=== PATIENT | male | born 1930 | race Caucasian/White ===

== ENCOUNTER 2018-10-04 19:28 | Emergency (ER) | payer MEDICARE ==
[~2018-10-04] VITALS: Ht 170.2 cm; Wt 61.2 kg
--- OUTSIDE RECORDS SUMMARY | 2018-10-04 19:32 | XMS REPORT | Continuity of Care Document ---
Author Author [facility] Organization [facility] Address Unknown Phone Unavailable Allergies There is no data. Medications There is no data. Problems There is no data. Procedures There is no data. Results There is no data. Encounters ACCT No. Visit Date/Time Discharge Status Pt. Type Provider Facility Loc./Unit Complaint [id number] 09/23/2018 08:59:30 09/23/2018 23:59:59 CLS Preadmit SHONDA MOTA [facility] JUMA RAD PROSTATE CA
[2018-10-04 19:46] LABS: BASOPHILS % (AUTO) 0 % (0-10); EOSINOPHILS # (AUTO) 0.2 10^3/uL (0.0-0.3); EOSINOPHILS % (AUTO) 3 % (0-10); HEMATOCRIT 35 % (40-54); HEMOGLOBIN 11.6 G/DL (13.3-17.7); LYMPHOCYTES # (AUTO) 1.4 X 10^3 (1.0-4.0); LYMPHOCYTES % (AUTO) 23 % (12-44); MEAN CORPUSCULAR HEMOGLOBIN 33 PG (25-34); MEAN CORPUSCULAR HGB CONC 33 G/DL (32-36); MEAN CORPUSCULAR VOLUME 100 FL (80-99); MEAN PLATELET VOLUME 8.7 FL (7.4-10.4); MONOCYTES # (AUTO) 0.8 X 10^3 (0.0-1.0); MONOCYTES % (AUTO) 13 % (0-12); NEUTROPHILS # (AUTO) 3.7 X 10^3 (1.8-7.8); NEUTROPHILS % (AUTO) 61 % (42-75); PLATELET COUNT 182 10^3/uL (130-400); RED CELL DISTRIBUTION WIDTH 13.5 % (10.0-14.5); WHITE BLOOD COUNT 6.1 10^3/uL (4.3-11.0)
--- NOTE | 2018-10-04 19:47 | NUR ---
PT TO CT DEPT, NO S/S OF DISTRESS NOTED. PT [id number]
[2018-10-04 19:58] LABS: INR 0.9 (0.8-1.4)
[2018-10-04 20:04] LABS: ALANINE AMINOTRANSFERASE < 6 U/L (0-55); ALBUMIN 4.3 GM/DL (3.2-4.5); ALKALINE PHOSPHATASE 89 U/L (40-136); BILIRUBIN,TOTAL 0.5 MG/DL (0.1-1.0); BUN/CREATININE RATIO 18; CALCIUM 9.5 MG/DL (8.5-10.1); CARBON DIOXIDE 25 MMOL/L (21-32); CHLORIDE 104 MMOL/L (98-107); CREATINE KINASE 58 U/L (30-200); CREATININE SERUM 1.26 MG/DL (0.60-1.30); GFR ESTIMATED 54; GLUCOSE 107 MG/DL (70-105); SODIUM 138 MMOL/L (135-145); TOTAL PROTEIN 7.8 GM/DL (6.4-8.2)
[2018-10-04] MEDS ORDERED: TETANUS,DIPTH,PERTUSS P/F (BOOSTRIX) 0.5 ML VIAL IM STA (20:20)
--- NOTE | 2018-10-04 20:22 | Diagnostic Imaging Report ---
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 Undergoing treatment currently. Pelvic pain status post fall. EXAMINATION: Pelvis 10/04/2018 FINDINGS: Single frontal view of the pelvis There is narrowing and spurring in the hip joint spaces bilaterally. There are no fractures or dislocations appreciated. IMPRESSION: 1. No acute process. Dictated by: Dictated on workstation # [id number]
[2018-10-04 20:23] LABS: CREATINE KINASE MB 0.9 NG/ML (<6.6); MYOGLOBIN SERUM 89.5 NG/ML (10.0-92.0); TSH (THYROID ANALYZER) 2.72 UIU/ML (0.35-4.94)
[2018-10-04 20:24] LABS: BILIRUBIN,URINE NEGATIVE (NEGATIVE); CLARITY,URINE CLEAR; COLOR,URINE YELLOW; GLUCOSE, URINE (UA) NEGATIVE (NEGATIVE); KETONES,URINE NEGATIVE (NEGATIVE); LEUKOCYTE ESTERASE ,URINE NEGATIVE (NEGATIVE); NITRITE,URINE NEGATIVE (NEGATIVE); PH,URINE 7 (5-9); PROTEIN,URINE 1+ (NEGATIVE); UROBILINOGEN,URINE NORMAL (NORMAL)
--- NOTE | 2018-10-04 20:27 | Diagnostic Imaging Report ---
INDICATION: Prostate cancer with history of metastatic disease to the bones. Status post fall. EXAMINATION: Chest 10/04/2018 FINDINGS: A single view frontal chest Linear markings at the lung bases noted. This could represent atelectasis or scar. Atypical developing infiltrates not excluded; correlate with symptoms. Remaining lungs clear. No pneumothorax. Heart and pulmonary vasculature are unremarkable. IMPRESSION: 1. Linear markings at the lung bases, please see above discussion. Remaining chest unremarkable. Dictated by: Dictated on workstation # [id number]
[2018-10-04 20:33] LABS: BACTERIA,URINE TRACE /HPF; SQUAMOUS EPITHELIAL CELL,UR RARE /HPF
--- NOTE | 2018-10-04 20:44 | Diagnostic Imaging Report ---
PROCEDURE: CT head and CT cervical spine without contrast. TECHNIQUE: Multiple contiguous axial images were obtained through the brain and cervical spine without the use of intravenous contrast. Sagittal and coronal reformations through the cervical spine were then performed. INDICATION: Status post fall. History of prostate cancer and metastatic disease to the bones. EXAMINATION: CT brain, CT cervical spine 10/04/2018 FINDINGS: Brain: There is atrophy which appears age-appropriate. No hemorrhage or infarct is seen. No mass, mass effect or midline shift appreciated. No hydrocephalus. The calvarium is intact. Old ischemic changes noted. There is a scalp hematoma posteriorly left paracentral. No underlying fracture. IMPRESSION: 1. Chronic changes as described. No acute intracranial process. 2. Scalp hematoma CT cervical spine: Osteopenia noted which limits evaluation for nondisplaced fractures. No significant compression deformities appreciated. There is diffuse multilevel degenerative disease. Multilevel facet hypertrophy and spur disc complex is noted. No definite acute fractures are seen and no subluxations appreciated. Visualized lung apices unremarkable. Prevertebral soft tissues unremarkable. IMPRESSION: Diffuse multilevel degenerative disease with no superimposed acute abnormalities. If pain persists given the osteopenia MRI could further characterize if clinically indicated. Dictated by: Dictated on workstation # [id number]
[2018-10-04] MEDS ORDERED: LIDOCAINE/EPI 2% 1:100,00 (XYLOCAINE) 20 ML VIAL ONE (20:55)
--- NOTE | 2018-10-04 21:15 | ED Head Injury ---
General Stated Complaint: FALL Source: patient, spouse Exam Limitations: other (PT IS FAIR HISTORIAN, HAS SOME DEMENTIA BUT CAN GIVE SOME RELIABLE INFORMATION) History of Present Illness Date Seen by Provider: Oct 04, 2018 Time Seen by Provider: 19:25 Initial Comments PT ARRIVES VIA EMS [facility] PT FELL AT HOME PT DOES NOT RECALL THE ACTUAL FALL PT WAS SITTING AT KITCHEN TABLE AND WAS STANDING AT SINK, AND HEARD HIM FALL. SHE REPORTS HE HAD HIS CANE AND HE APPARENTLY STOOD UP AND LOST HIS BALANCE AND FELL. SHE BELIEVES HE HIT THE BACK OF HIS HEAD ON THE CORNER OF A HUTCH NO LOSS OF CONSCIOUSNESS HAS LACERATION TO LEFT POSTERIOR SCALP/OCCIPUT PT IS ACTING NORMAL NO VISION CHANGES NO NAUSEA/VOMITING NO DIZZINESS NO PARESTHESIAS OR MOTOR DEFICITS NO EXTREMITY PAIN PT HAS PARKINSON'S AND FALLS FREQUENTLY, AND HAS FALLEN A COUPLE OF TIMES IN THE LAST COUPLE OF DAYS, BUT NO INJURIES FROM THOSE EPISODES PCP:DR FLORES, [facility]. ONCOLOGY: [place] [facility] Allergies and Home Medications Allergies Coded Allergies: No Known Drug Allergies (Unverified , 10/04/18) Patient Home Medication List Home Medication List Reviewed: Yes Review of Systems Review of Systems Constitutional: no symptoms reported Eyes: No Symptoms Reported Ears, Nose, Mouth, Throat: no symptoms reported Respiratory: no symptoms reported Cardiovascular: no symptoms reported Gastrointestinal: no symptoms reported Genitourinary: no symptoms reported Musculoskeletal: no symptoms reported Skin: see HPI Psychiatric/Neurological: See HPI; Denies Cognitive Dysfunction; Headache; Denies Numbness, Denies Tingling, Denies Weakness Endocrine: No Symptoms Reported Hematologic/Lymphatic: No Symptoms Reported Past Cjwueig-Tsgpgm-Vymklo Hx Patient Social History Alcohol Use: Denies Use Recreational Drug Use: No Smoking Status: Never a Smoker Recent Foreign Travel: No Contact w/Someone Who Travel: No Immunizations Up To Date Tetanus Booster (TDap): More than 5yrs Past Medical History Surgeries: Yes (CARDIAC CATHS WITH STENTS X 7; LEFT RING FINGER TRIGGER FINGER REPAIR; LUMBAR SPINE SURGERY; HEMORRHOIDECTOMY;) Orthopedic, Rectal Respiratory: No Cardiac: Yes Coronary Artery Disease, High Cholesterol, Hypertension Neurological: Yes Dementia 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) Gastrointestinal: Yes Chronic Constipation, Hemorrhoids Musculoskeletal: Yes (RESTLESS LEG SYNDROME) Chronic Back Pain Endocrine: No HEENT: No Cancer: Yes (PROSTATE CANCER WITH METS TO BONE. DX 12/2016. NO SURGERY. ON ORAL MEDICATION AND LUPRON) Prostate Did You Recieve Any Treatments: Yes What Type of Treatment Did You: Chemotherapy Psychosocial: No Integumentary: No Blood Disorders: No Physical Exam Vital Signs Vital Signs - First Documented 10/04/18 19:32 Temp 98.3 B/P (MAP) 149/78 (101) Pulse Ox 76 O2 Delivery Room Air Capillary Refill : Height, Weight, BMI Height: '" Weight: lbs. oz. kg; BMI Method: General Appearance: WD/WN, no apparent distress HEENT: PERRL/EOMI, normal ENT inspection, TMs normal, pharynx normal, other ( 2.5 CM VERTICAL LACERATION TO RIGHT OCCIPUT. BLEEDING IS CONTROLLED AT THIS TIME. DRESSINGS SATURATED WITH BLOOD. ) Neck: non-tender, full range of motion, supple, normal inspection Cardiovascular: regular rate, rhythm, no murmur, extra beats (FREQUENT ECTOPY-C /W PAC'S ON MONITOR) Respiratory: normal breath sounds Gastrointestinal: non tender, soft Back: normal inspection, no CVA tenderness, no vertebral tenderness Extremities: non-tender, normal inspection, normal capillary refill Psychiatric: alert, oriented x 3 (SOMEWHAT LIMITED MEMORY) Crainal Nerves: normal hearing, normal speech, PERRL Motor/Sensory: no motor deficit, no sensory deficit, other (NO TREMOR NOTED AT THIS TIME) Skin: normal color, warm/dry, other (LACERATION TO OCCIPUT NOTED ABOVE) Andrews Coma Score Best Eye Response: (4) Open Spontaneously Best Verbal Response: (5) Oriented Best Motor Response: (6) Obeys Commands Andrews Total: 15 Procedures/Interventions Wound Location: Scalp (RIGHT OCCIPUT) Wound Length (cm): 2.5 Wound's Depth, Shape: linear, sub Q Wound Explored: clean Anesthesia: Lidocaine w/ Epi (2%) Staple Repair: Stapler 35W (#8) Sterile Dressing Applied?: Yes Progress/Results/Core Measures Results/Orders Lab Results Laboratory Tests Test 10/04/18 19:30 10/04/18 20:17 Range/Units White Blood Count 6.1 4.3-11.0 10^3/uL Red Blood Count 3.50 L 4.35-5.85 10^6/uL Hemoglobin 11.6 L 13.3-17.7 G/DL Hematocrit 35 L 40-54 % Mean Corpuscular Volume 100 H 80-99 FL Mean Corpuscular Hemoglobin 33 25-34 PG Mean Corpuscular Hemoglobin Concent 33 32-36 G/DL Red Cell Distribution Width 13.5 10.0-14.5 % Platelet Count 182 130-400 10^3/uL Mean Platelet Volume 8.7 7.4-10.4 FL Neutrophils (%) (Auto) 61 42-75 % Lymphocytes (%) (Auto) 23 12-44 % Monocytes (%) (Auto) 13 H 0-12 % Eosinophils (%) (Auto) 3 0-10 % Basophils (%) (Auto) 0 0-10 % Neutrophils # (Auto) 3.7 1.8-7.8 X 10^3 Lymphocytes # (Auto) 1.4 1.0-4.0 X 10^3 Monocytes # (Auto) 0.8 0.0-1.0 X 10^3 Eosinophils # (Auto) 0.2 0.0-0.3 10^3/uL Basophils # (Auto) 0.0 0.0-0.1 10^3/uL Prothrombin Time 12.0 L 12.2-14.7 SEC INR Comment 0.9 0.8-1.4 Activated Partial Thromboplast Time 30 24-35 SEC Sodium Level 138 135-145 MMOL/L Potassium Level 4.0 3.6-5.0 MMOL/L Chloride Level 104 98-107 MMOL/L Carbon Dioxide Level 25 21-32 MMOL/L Anion Gap 9 5-14 MMOL/L Blood Urea Nitrogen 23 H 7-18 MG/DL Creatinine 1.26 0.60-1.30 MG/DL Estimat Glomerular Filtration Rate 54 BUN/Creatinine Ratio 18 Glucose Level 107 H 70-105 MG/DL Calcium Level 9.5 8.5-10.1 MG/DL Corrected Calcium 9.3 8.5-10.1 MG/DL Magnesium Level 3.0 H 1.8-2.4 MG/DL Total Bilirubin 0.5 0.1-1.0 MG/DL Aspartate Amino Transf (AST/SGOT) 17 5-34 U/L Alanine Aminotransferase (ALT/SGPT) < 6 0-55 U/L Alkaline Phosphatase 89 40-136 U/L Total Creatine Kinase 58 30-200 U/L Creatine Kinase MB 0.9 <6.6 NG/ML Myoglobin 89.5 10.0-92.0 NG/ML Troponin I < 0.028 <0.028 NG/ML Total Protein 7.8 6.4-8.2 GM/DL Albumin 4.3 3.2-4.5 GM/DL TSH [place] Testing 2.72 0.35-4.94 UIU/ML Urine Color YELLOW Urine Clarity CLEAR Urine pH 7 5-9 Urine Specific [place] 1.010 L 1.016-1.022 Urine Protein 1+ H NEGATIVE Urine Glucose (UA) NEGATIVE NEGATIVE Urine Ketones NEGATIVE NEGATIVE Urine Nitrite NEGATIVE NEGATIVE Urine Bilirubin NEGATIVE NEGATIVE Urine Urobilinogen NORMAL NORMAL MG/DL Urine Leukocyte Esterase NEGATIVE NEGATIVE Urine RBC (Auto) NEGATIVE NEGATIVE Urine RBC NONE /HPF Urine WBC NONE /HPF Urine Squamous Epithelial Cells RARE /HPF Urine Crystals NONE /LPF Urine Bacteria TRACE /HPF Urine Casts NONE /LPF Urine Mucus NEGATIVE /LPF Urine Culture Indicated NO My Orders Orders - SALVADOR ROSARIO DO Accucheck Stat ONCE (10/04/18 19:29) Saline Lock/Iv-Start (10/04/18 19:29) Ekg Tracing (10/04/18:29) Monitor-Rhythm Ecg Trace Only (10/04/18 19:29) I-Stat Bedside Testing (10/04/18 19:29) Ct Head/Cervical Spine Wo (10/04/18 19:29) Cbc With Automated Diff (10/04/18 19:29) Comprehensive Metabolic Panel (10/04/18 19:29) Creatine Kinase (10/04/18 19:29) Creatine Kinase Mb (10/04/18 19:29) Magnesium (10/04/18 19:29) Protime With Inr (10/04/18 19:29) Partial Thromboplastin Time (10/04/18 19:29) Thyroid Analyzer (10/04/18 19:29) Troponin I (10/04/18 19:29) Ua Culture If Indicated (10/04/18 19:29) Myoglobin Serum (10/04/18 19:29) Chest 1 View, Ap/Pa Only (10/04/18 19:29) Pelvis (10/04/18 19:29) Cervical Collar (10/04/18 19:29) Dipht,Pertuss(Acell),Tet Adult (Boostrix (10/04/18 20:20) Lidocaine/Epi 2% 1:100,000 (Xylocaine/Ep (10/04/18 20:55) Wound Dressing-Ed (10/04/18 21:13) Medications Given in ED Progress Progress Note : Progress Note CERVICAL COLLAR APPLIED ON ARRIVAL CERVICAL COLLAR REMOVED AT [address] REPORT FROM RADIOLOGIST NO DETERIORATION IN PT'S CONDITION DURING ER STAY FAMILY COMFORTABLE TAKING PT HOME. Initial ECG Impression Date: Oct 04, 2018 Initial ECG Impression Time: 19:30 Initial ECG Rate: 69 Initial ECG Rhythm: Normal Sinus (LBBB), PAC Initial ECG Comparisson: No Previous ECG Available Diagnostic Imaging Comments CT HEAD/CERVICAL SPINE--CHRONIC CHANGES, NO ACUTE PROCESS PER RADIOLOGIST REPORTS AT 2039 Reviewed: Reviewed by Me Departure Impression Primary Impression: Status post fall Additional Impressions: Minor head injury without loss of consciousness Occipital scalp laceration CERVICIAL SPINE STRAIN Parkinson disease Bxqstvyory-giglxvbdc-mbfsdon (DPT) vaccination administered at current visit Disposition: HOME, SELF-CARE Condition: Stable Departure-Patient Inst. Referrals: JACE FLORES MD, JOHN G JR, MD (PCP) Primary Care Physician Patient Instructions: Diphtheria and Tetanus Toxoids, and Acellular Pertussis Vaccine, Laceration Repair With Mando (DC), Minor Head Injury (DC), Neck Sprain (DC), Preventing Falls in the Older Adult Add. Discharge Instructions: CLEAN WOUND TWICE A DAY WITH ANTIBACTERIAL SOAP AND WATER, OTHERWISE KEEP WOUND CLEAN AND DRY TYLENOL NEEDED FOR PAIN MANDO OUT IN 10 DAYS--YOU MAY RETURN TO ER OR FOLLOW UP WITH YOUR REGULAR DR FOR REMOVAL SALVADOR ROSARIO DO Oct 04, 2018 21:15
--- NOTE | 2018-10-04 21:30 | NUR ---
pt escorted to restroom with spouse, states he needs to have a BM.
[2018-10-04 21:50] VITALS: BP 138/78
--- NOTE | 2018-10-04 21:50 | NUR ---
DRESSING APPLIED. PT TOLERATED PROCEDURE WELL
== END 2018-10-04 21:50 | disposition home or self-care (01) ==
LOC: EDUNIT# 19:28 → ER 19:29
DX: S09.90XA Unspecified injury of head, initial encounter (principal); S01.01XA Laceration without foreign body of scalp, initial encounter; S16.1XXA Strain of muscle, fascia and tendon at neck level, initial encounter; G20 Parkinson's disease; R40.2142 Coma scale, eyes open, spontaneous, at arrival to emergency department; R40.2252 Coma scale, best verbal response, oriented, at arrival to emergency department; R40.2362 Coma scale, best motor response, obeys commands, at arrival to emergency department; I25.10 Atherosclerotic heart disease of native coronary artery without angina pectoris; E78.00 Pure hypercholesterolemia, unspecified; I10 Essential (primary) hypertension; F03.90 Unspecified dementia, unspecified severity, without behavioral disturbance, psychotic disturbance, mood disturbance, and anxiety; Z92.21 Personal history of antineoplastic chemotherapy; Z85.46 Personal history of malignant neoplasm of prostate; Z87.19 Personal history of other diseases of the digestive system; Z23 Encounter for immunization; Z95.5 Presence of coronary angioplasty implant and graft; Z98.890 Other specified postprocedural states; W01.198A Fall on same level from slipping, tripping and stumbling with subsequent striking against other object, initial encounter; Y92.000 Kitchen of unspecified non-institutional (private) residence as the place of occurrence of the external cause
CPT/HCPCS: 36415; 70450; 71045; 72125; 72170; 80053; 81000; 82550; 82553; 83735; 83874; 84443; 84484; 85025; 85610; 85730; 90715; 93005; 93041

== ENCOUNTER 2018-10-14 13:03 | Emergency (ER) | payer MEDICARE ==
[~2018-10-14] VITALS: Ht 170.2 cm; Wt 61.2 kg
--- OUTSIDE RECORDS SUMMARY | 2018-10-14 13:10 | XMS REPORT | Continuity of Care Document ---
Author Author Organization Address Unknown Phone Unavailable Allergies Active Description Code Type Severity Reaction Onset Reported/Identified Relationship to Patient Clinical Status Yes No Known Drug Allergies [id number] Drug Allergy Unknown N/A 10/04/2018 Medications There is no data. Problems Date Dx Coded Attending Type Code Diagnosis Diagnosed By 10/07/2018 SALVADOR ROSARIO DO, Ot E78.00 PURE HYPERCHOLESTEROLEMIA, UNSPECIFIED 10/07/2018 SALVADOR ROSARIO DO, Ot F03.90 UNSPECIFIED DEMENTIA WITHOUT BEHAVIORAL 10/07/2018 SALVADOR ROSARIO DO, Ot G20 PARKINSON'S DISEASE 10/07/2018 SALVADOR ROSARIO DO, Ot I10 ESSENTIAL (PRIMARY) HYPERTENSION 10/07/2018 SALVADOR ROSARIO DO, Ot I25.10 ATHSCL HEART DISEASE OF [place] CORONARY 10/07/2018 SALVADOR ROSARIO DO, Ot R40.2142 COMA SCALE, EYES OPEN, SPONTANEOUS, EMR 10/07/2018 SALVADOR ROSARIO DO, Ot R40.2252 COMA SCALE, BEST VERBAL RESPONSE, ORIENT 10/07/2018 SALVADOR ROSARIO DO, Ot R40.2362 COMA SCALE, BEST MOTOR RESPONSE, OBEYS C 10/07/2018 SALVADOR ROSARIO DO, Ot S01.01XA LACERATION WITHOUT FOREIGN BODY OF SCALP 10/07/2018 SALVADOR ROSARIO DO, Ot S09.90XA UNSPECIFIED INJURY OF HEAD, INITIAL ENCO 10/07/2018 SALVADOR ROSARIO DO, Ot S16.1XXA STRAIN OF MUSCLE, FASCIA AND TENDON AT N 10/07/2018 SALVADOR ROSARIO DO, Ot W01.198A FALL SAME LEV FROM SLIP/TRIP W STRIKE AG 10/07/2018 SALVADOR ROSARIO DO, Ot Y92.000 KITCHEN OF [facility] NON-INSTITUT (PRIVATE) R 10/07/2018 SALVADOR ROSARIO DO, Ot Z23 ENCOUNTER FOR IMMUNIZATION 10/07/2018 SALVADOR ROSARIO DO, Ot Z85.46 PERSONAL HISTORY OF MALIGNANT NEOPLASM O 10/07/2018 SALVADOR ROSARIO DO, Ot Z87.19 PERSONAL HISTORY OF OTHER DISEASES OF TH 10/07/2018 SALVADOR ROSARIO DO, Ot Z92.21 PERSONAL HISTORY OF ANTINEOPLASTIC CHEMO 10/07/2018 SALVADOR ROSARIO DO, Ot Z95.5 PRESENCE OF CORONARY ANGIOPLASTY IMPLANT 10/07/2018 SALVADOR ROSARIO DO, Ot Z98.890 OTHER SPECIFIED POSTPROCEDURAL STATES Procedures There is no data. Results Test Result Range Complete blood count (CBC) with automated white blood cell (WBC) differential - 10/04/18 19:30 Blood leukocytes automated count (number/volume) 6.1 10*3/uL 4.3-11.0 Blood erythrocytes automated count (number/volume) 3.50 10*6/uL 4.35-5.85 Venous blood hemoglobin measurement (mass/volume) 11.6 g/dL 13.3-17.7 Blood hematocrit (volume fraction) 35 % 40-54 Automated erythrocyte mean corpuscular volume 100 [foz_us] 80-99 Automated erythrocyte mean corpuscular hemoglobin (mass per erythrocyte) 33 pg 25-34 Automated erythrocyte mean corpuscular hemoglobin concentration measurement ( mass/volume) 33 g/dL 32-36 Automated erythrocyte distribution width ratio 13.5 % 10.0-14.5 Automated blood platelet count (count/volume) 182 10*3/uL 130-400 Automated blood platelet mean volume measurement 8.7 [foz_us] 7.4-10.4 Automated blood neutrophils/100 leukocytes 61 % 42-75 Automated blood lymphocytes/100 leukocytes 23 % 12-44 Blood monocytes/100 leukocytes 13 % 0-12 Automated blood eosinophils/100 leukocytes 3 % 0-10 Automated blood basophils/100 leukocytes 0 % 0-10 Blood neutrophils automated count (number/volume) 3.7 10*3 1.8-7.8 Blood lymphocytes automated count (number/volume) 1.4 10*3 1.0-4.0 Blood monocytes automated count (number/volume) 0.8 10*3 0.0-1.0 Automated eosinophil count 0.2 10*3/uL 0.0-0.3 Automated blood basophil count (count/volume) 0.0 10*3/uL 0.0-0.1 Comprehensive metabolic panel - 02/02/19 19:30 Serum or plasma sodium measurement (moles/volume) 138 mmol/L 135-145 Serum or plasma potassium measurement (moles/volume) 4.0 mmol/L 3.6-5.0 Serum or plasma chloride measurement (moles/volume) 104 mmol/L 98-107 Carbon dioxide 25 mmol/L 21-32 Serum or plasma anion gap determination (moles/volume) 9 mmol/L 5-14 Serum or plasma urea nitrogen measurement (mass/volume) 23 mg/dL 7-18 Serum or plasma creatinine measurement (mass/volume) 1.26 mg/dL 0.60-1.30 Serum or plasma urea nitrogen/creatinine mass ratio 18 NRG Serum or plasma creatinine measurement with calculation of estimated glomerular filtration rate 54 NRG Serum or plasma glucose measurement (mass/volume) 107 mg/dL 70-105 Serum or plasma calcium measurement (mass/volume) 9.5 mg/dL 8.5-10.1 Serum or plasma total bilirubin measurement (mass/volume) 0.5 mg/dL 0.1-1.0 Serum or plasma alkaline phosphatase measurement (enzymatic activity/volume) 89 U/L 40-136 Serum or plasma aspartate aminotransferase measurement (enzymatic activity/ volume) 17 U/L 5-34 Serum or plasma alanine aminotransferase measurement (enzymatic activity/volume ) < U/L 0-55 Serum or plasma protein measurement (mass/volume) 7.8 g/dL 6.4-8.2 Serum or plasma albumin measurement (mass/volume) 4.3 g/dL 3.2-4.5 CALCIUM CORRECTED 9.3 mg/dL 8.5-10.1 Magnesium - 10/04/18 19:30 Magnesium 3.0 mg/dL 1.8-2.4 Serum or plasma creatine kinase measurement (enzymatic activity/volume) - 10/04 19:30 Serum or plasma creatine kinase measurement (enzymatic activity/volume) 58 U/L 30-200 PT panel in platelet poor plasma by coagulation assay - 10/04/18 19:30 Prothrombin time (PT) in platelet poor plasma by coagulation assay 12.0 s 12.2-14.7 INR in platelet poor plasma or blood by coagulation assay 0.9 0.8-1.4 Activated partial thromboplastin time (aPTT) in platelet poor plasma bycoagulation assay - 10/04/18 19:30 Activated partial thromboplastin time (aPTT) in platelet poor plasma bycoagulation assay 30 s 24-35 Serum or plasma creatine kinase MB measurement (enzymatic activity/volume) - 19:30 Serum or plasma creatine kinase MB measurement (enzymatic activity/volume) 0.9 ng/mL <6.6 Serum or plasma troponin i.cardiac measurement (mass/volume) - 10/04/18 19:30 Serum or plasma troponin i.cardiac measurement (mass/volume) < ng/ mL <0.028 Myoglobin, serum - 10/04/18 19:30 Myoglobin, serum 89.5 ng/mL 10.0-92.0 Serum or plasma thyrotropin measurement by detection limit <=0.05 miu/l (units/ volume) - 10/04/18 19:30 Serum or plasma thyrotropin measurement by detection limit <=0.05 miu/l (units/ volume) 2.72 u[iU]/mL 0.35-4.94 Complete urinalysis with reflex to culture - 10/04/18 20:17 Urine color determination YELLOW NRG Urine clarity determination CLEAR NRG Urine pH measurement by test strip 7 5-9 Specific gravity of urine by test strip 1.010 1.016- 1.022 Urine protein assay by test strip, semi-quantitative 1+ NEGATIVE Urine glucose detection by automated test strip NEGATIVE NEGATIVE Erythrocytes detection in urine sediment by light microscopy NEGATIVE NEGATIVE Urine ketones detection by automated test strip NEGATIVE NEGATIVE Urine nitrite detection by test strip NEGATIVE NEGATIVE Urine total bilirubin detection by test strip NEGATIVE NEGATIVE Urine urobilinogen measurement by automated test strip (mass/volume) NORMAL NORMAL Urine leukocyte esterase detection by dipstick NEGATIVE NEGATIVE Automated urine sediment erythrocyte count by microscopy (number/high power field) NONE NRG Automated urine sediment leukocyte count by microscopy (number/high power field ) NONE NRG Bacteria detection in urine sediment by light microscopy TRACE NRG Squamous epithelial cells detection in urine sediment by light microscopy RARE NRG Crystals detection in urine sediment by light microscopy NONE NRG Casts detection in urine sediment by light microscopy NONE NRG Mucus detection in urine sediment by light microscopy NEGATIVE NRG Complete urinalysis with reflex to culture NO NRG Encounters ACCT No. Visit Date/Time Discharge Status Pt. Type Provider Facility Loc./Unit Complaint [id number] 09/23/2018 08:59:30 09/23/2018 23:59:59 CLS Preadmit SHONDA MOTA JUMA RAD PROSTATE CA [id number] 10/04/2018 19:29:00 10/04/2018 21:50:00 DIS Outpatient SALVADOR ROSARIO DO [facility] ER FALL [id number] 10/14/2018 13:06:00 ACT Emergency LYNNE HEDRICK, RUFINA Miller [facility] ER STAPLE REMOVAL
[2018-10-14 13:20] VITALS: BP 94/57
== END 2018-10-14 13:26 | disposition home or self-care (01) ==
LOC: EDUNIT# 13:03 → ER 13:06
DX: S01.81XD Laceration without foreign body of other part of head, subsequent encounter (principal); X58.XXXD Exposure to other specified factors, subsequent encounter

== ENCOUNTER 2019-01-18 17:46 | Emergency (ER) | payer MEDICARE ==
[~2019-01-18] VITALS: Ht 172.7 cm; Wt 66.7 kg
--- OUTSIDE RECORDS SUMMARY | 2019-01-18 17:51 | XMS REPORT | Clinical Summary ---
Author Author Admin, [facility] Organization [facility] Address Unknown Phone Unavailable Allergies, Adverse Reactions, Alerts Allergy Name Reaction Description Start Date Severity Status Provider Allergies Unknown Conditions or Problems Problem Name Problem Code Onset Date Status Entry Date Provider Comment Standard Description Annotate Adenocarcinoma of prostate 185 Active Barbie Montes De Oca MA Malignant neoplasm of prostate Medication List Medication Instructions Start Date Stop Date Generic Name NDC Status Provider Patient Instruction Drug Treatment Unknown - unknown
--- OUTSIDE RECORDS SUMMARY | 2019-01-18 17:51 | XMS REPORT | CCD ---
Author Author [facility] Organization [facility] Address [address] [place] [address] Phone Care Team Providers Care [place] Support Worker Name Role Phone PP Unavailable CCM Unavailable Summary Purpose Interface Exchange Insurance Providers Payer name Policy type / Coverage type Covered green party ID Effective Begin Date Effective End Date WPS Medicare Part B Medicare Part B [id number] Unknown Unknown [facility] Medicare Part B [id number] Unknown Unknown Family history Father Diagnosis Age At Onset Arthritis Unknown Coronary Artery Disease Unknown Mother Diagnosis Age At Onset Stroke Unknown Arthritis Unknown Social History Social History Element Codes Description Effective Dates Number of children Unknown 1 01/01/[address]: 401084348 Never smoker 01/01/[address]: 252806744 Never drinks alcohol 01/01/2019 Allergies, Adverse Reactions, Alerts Substance Reaction Codes Entered Date Inactivated Date Status Norvasc pruritis, RxNorm: 74317 01/01/2019 No Inactive Date Active Past Medical History Illness Codes Condition Status Onset Date Resolved Date Allergic rhinitis due to pollen ICD-9: 477.9 ICD-10: J30.1 Active 01/01/2019 Unknown Impacted cerumen, bilateral ICD-9: 389.8 ICD-10: H61.23 Active 01/01/2019 Unknown Malignant neoplasm of prostate ICD-9: 185 ICD-10: C61 Active 01/01/2019 Unknown 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 Active 01/01/2019 Unknown Orthostatic hypotension ICD-9: 458.0 ICD-10: I95.1 Active 01/01/2019 Unknown Parkinson's disease ICD- 9: 332.0 ICD-10: G20 Active 01/01/2019 Unknown 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 Active 01/01/2019 Unknown Vitamin D deficiency, unspecified ICD-9: 268.9 ICD-10: E55.9 Active 01/01/2019 Unknown Problems Condition Codes Effective Dates Condition Status Allergic rhinitis due to pollen ICD-9: 477.9 ICD-10: J30.1 01/01/2019 Active Impacted cerumen, bilateral ICD-9: 389.8 ICD-10: H61.23 01/01/2019 Active Malignant neoplasm of prostate ICD-9: 185 ICD-10: C61 01/01/2019 Active 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 01/01/2019 Active Orthostatic hypotension ICD-9: 458.0 ICD-10: I95.1 01/01/2019 Active Parkinson's disease ICD- 9: 332.0 ICD-10: G20 01/01/2019 Active 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 01/01/2019 Active Vitamin D deficiency, unspecified ICD-9: 268.9 ICD-10: E55.9 01/01/2019 Active Medications Medication Codes Instructions Start Date Stop Date Status Fill Instructions Kenalog 40 mg/mL suspension for injection RxNorm: 5155996 1.5 Milliliter(s) Inj 01/01/2019 01/01/2019 Inactive nitroglycerin 0.4 mg sublingual tablet RxNorm: 903363 Tablet(s) SL as needed No Start Date Active Tums E-X 300 mg (750 mg) chewable tablet RxNorm: 5819659 1 Tablet(s) PO daily noon No Start Date Active aspirin 325 mg tablet RxNorm: 034193 1 Tablet(s) PO daily No Start Date Active ropinirole 3 mg tablet RxNorm: 332607 1 Tablet(s) PO TID No Start Date Active Lupron Depot (3 month) intramuscular RxNorm: 062504 intramuscular No Start Date Active Calcium 500 With D 500 mg (1,250 mg)-400 unit tablet RxNorm: 721131 1 Tablet(s) PO TID 400,1250mg-200 No Start Date Active cyanocobalamin (vit B-12) 1,000 mcg tablet RxNorm: 120049 1 Tablet(s) PO daily No Start Date Active bicalutamide 50 mg tablet RxNorm: 256826 1 Tablet(s) PO BID No Start Date Active Tylenol 8 Hour 650 mg tablet,extended release RxNorm: 9529951 2 am 1 noon 1 [place] 2 hs Tablet(s) PO No Start Date Active Zyrtec 10 mg tablet RxNorm: 4285722 1 Tablet(s) PO daily No Start Date Active pantoprazole 40 mg tablet,delayed release RxNorm: 231709 1 Tablet(s) PO daily No Start Date Active fludrocortisone 0.1 mg tablet RxNorm: 454630 1 Tablet(s) PO BID No Start Date Active pravastatin 40 mg tablet RxNorm: 828798 1/2 Tablet(s) PO QHS No Start Date Active flunisolide 25 mcg (0.025 %) nasal spray RxNorm: 8256696 1 [place] NASAL BID No Start Date Active Sinemet 25 mg-100 mg tablet RxNorm: 044502 2 Tablet(s) PO QID No Start Date Active sertraline 100 mg tablet RxNorm: 766294 1.5 Tablet(s) PO QHS No Start Date Active niacin (inositol niacinate) 500 mg tablet RxNorm: 389316 1 Tablet(s) PO daily No Start Date 12/31/2018 Inactive vitamin E 400 unit tablet RxNorm: 234003 2 Tablet(s) PO BID No Start Date 12/31/2018 Inactive omega 3-vgg-mpi-fish oil 900 mg-1,400 mg capsule,delayed release RxNorm: 1 Capsule(s) PO QPM No Start Date 12/31/2018 Inactive Medication Administered Medication Codes Instructions Start Date Status Kenalog 40 mg/mL suspension for injection RxNorm: 1323648 1.5Milliliter 01/01/2019 Active Immunizations Vaccine Codes Date Status Tetanus, Diptheria, Pertussis CVX: 113 10/03/2018 completed Tetanus/Diptheria CVX: 113 10/03/2018 completed Assessments Condition Codes Effective Dates Malignant neoplasm of prostate ICD-10: C61 ICD-9: 185 01/01/2019 Secondary malignant neoplasm of bone ICD-10: C79.51 ICD-9: 198.5 01/01/2019 Allergic rhinitis due to pollen ICD-10: J30.1 ICD-9: 477.9 01/01/2019 Orthostatic hypotension ICD-10: I95.1 ICD-9: 458.0 01/01/2019 Multi-system degeneration of the autonomic nervous system ICD- 10: G90.3 ICD-9: 333.0 01/01/2019 Vitamin D deficiency, unspecified ICD-10: E55.9 ICD-9: 268.9 01/01/2019 Parkinson's disease ICD-10: G20 ICD-9: 332.0 01/01/2019 Impacted cerumen, bilateral ICD-10: H61.23 ICD-9: 389.8 01/01/2019 Reason For Visit Reason For Visit Effective Dates Notes sinus congestion 01/01/2019 Results Observation Observation Code Item Item Code Result Date Tsh Ord6 TSH (3rd IS) 2.26 uIU/mL 01/01/2019 Iron Ord72 Iron 50 ug/dl 01/01/2019 Cbc With Differential Ord2 WBC 5.97 K/ul 01/01/2019 Cbc With Differential Ord2 RBC 3.66 M/ul 01/01/2019 Cbc With Differential Ord2 HGB 11.6 g/dl 01/01/2019 Cbc With Differential Ord2 HCT 36.2 % 01/01/2019 Cbc With Differential Ord2 Neut% 63.7 % 01/01/2019 Cbc With Differential Ord2 MCV 98.9 fl 01/01/2019 Cbc With Differential Ord2 Lymph% 21.6 % 01/01/2019 Cbc With Differential Ord2 MCH 31.7 pg 01/01/2019 Cbc With Differential Ord2 [place]% 12.7 % 01/01/2019 Cbc With Differential Ord2 Eos% 1.5 % 01/01/2019 Cbc With Differential Ord2 MCHC 32.0 pg 01/01/2019 Cbc With Differential Ord2 PLT 164 K/ul 01/01/2019 Cbc With Differential Ord2 Baso% 0.5 % 01/01/2019 Cbc With Differential Ord2 RDW 13.7 % 01/01/2019 Cbc With Differential Ord2 Neut ABS# 3.80 K/ul 01/01/2019 Cbc With Differential Ord2 Lymph ABS# 1.29 K/ul 01/01/2019 Cbc With Differential Ord2 [place] ABS# 0.8 K/ul 01/01/2019 Cbc With Differential Ord2 Eos ABS# 0.1 K/ul 01/01/2019 Cbc With Differential Ord2 Baso ABS# 0.0 K/ul 01/01/2019 Comp Metabolic Yzr689 NA 140 mEq/L 01/01/2019 Comp Metabolic Ubx728 K 4.3 mEq/L 01/01/2019 Comp Metabolic Ugv509 CL 102 mEq/L 01/01/2019 Comp Metabolic Gkn969 CO2 30.0 mEq/L 01/01/2019 Comp Metabolic Ijc623 ANION GAP 12 01/01/2019 Comp Metabolic Ooo824 GLUCOSE 102 mg/dL 01/01/2019 Comp Metabolic Mwq687 Creat 1.4 mg/dL 01/01/2019 Comp Metabolic Wws551 eGFR 53 ml/min/1.73m2 01/01/2019 Comp Metabolic Hrx157 BUN 23 mg/dL 01/01/2019 Comp Metabolic Kss705 B/C Ratio 16.9 Ratio 01/01/2019 Comp Metabolic Lso413 CALCIUM 9.3 mg/dL 01/01/2019 Comp Metabolic Vce965 ALK PHOS 46 U/L 01/01/2019 Comp Metabolic Ldv475 AST(SGOT) 13 U/L 01/01/2019 Comp Metabolic Yms876 ALT(SGPT) <3 U/L 01/01/2019 Comp Metabolic Ysp809 BILI T 0.6 mg/dL 01/01/2019 Comp Metabolic Fru932 ALBUMIN 4.4 g/dL 01/01/2019 Comp Metabolic Spx627 TPRO 7.1 g/dL 01/01/2019 Comp Metabolic Wnq791 GLOB 2.7 g/dL 01/01/2019 Comp Metabolic Mdp687 A/G Ratio 1.6 Ratio 01/01/2019 Comp Metabolic Mer695 Osmo 283 mOsmo 01/01/2019 Vitamin D 25 Oh Egz2739 VITAMIN D, 25 HYDROXY 33.78 ng/mL 01/01/2019 Review of Systems System Result Effective Dates Constitutional No recent illness 01/01/2019 Constitutional No chills 01/01/2019 Constitutional fatigue 01/01/2019 Constitutional No fever 01/01/2019 Constitutional No insomnia 01/01/2019 Constitutional No malaise 01/01/2019 Eyes No vision change 01/01/2019 Ears/Nose/Throat/Neck dizziness 01/01/2019 Ears/Nose/Throat/Neck No dysphagia 01/01/2019 Ears/Nose/Throat/Neck No headache 01/01/2019 Ears/Nose/Throat/Neck No hearing loss 01/01/2019 Ears/Nose/Throat/Neck No nasal allergies 01/01/2019 Ears/Nose/Throat/Neck No sore throat 01/01/2019 Ears/Nose/Throat/Neck postnasal drip 01/01/2019 Ears/Nose/Throat/Neck sinus congestion 01/01/2019 Cardiovascular No chest pain/pressure 01/01/2019 Cardiovascular No dyspnea 01/01/2019 Cardiovascular No edema 01/01/2019 Cardiovascular No exercise intolerance 01/01/2019 Cardiovascular No fatigue 01/01/2019 Cardiovascular No near-syncope/dizziness 01/01/2019 Respiratory No chest tightness 01/01/2019 Respiratory No cough 01/01/2019 Respiratory No dyspnea 01/01/2019 Respiratory No pedal edema 01/01/2019 Gastrointestinal No abdominal pain 01/01/2019 Gastrointestinal No constipation 01/01/2019 Gastrointestinal No diarrhea 01/01/2019 Gastrointestinal No gastroesophageal reflux 01/01/2019 Gastrointestinal No nausea 01/01/2019 Gastrointestinal No vomiting 01/01/2019 Genitourinary/Nephrology No dysuria 01/01/2019 Genitourinary/Nephrology No nocturia 01/01/2019 Genitourinary/Nephrology No urinary incontinence 01/01/2019 Musculoskeletal stiffness 01/01/2019 Musculoskeletal No swelling 01/01/2019 Musculoskeletal muscle weakness 01/01/2019 Musculoskeletal No myalgias 01/01/2019 Dermatologic No rash 01/01/2019 Dermatologic No sores 01/01/2019 Neurologic No dizziness 01/01/2019 Neurologic No headache 01/01/2019 Neurologic No neck pain 01/01/2019 Neurologic No syncope 01/01/2019 Psychiatric No anxiety 01/01/2019 Psychiatric No depression 01/01/2019 Neurologic dyskinesia or tremor 01/01/2019 Dermatologic pruritus 01/01/2019 Physical Exam Exam Name System Name Item Name Status Result Effective Dates Notes Full Exam - General 1994 Constitutional general appearance Development: well developed 01/01/2019 None Full Exam - General 1994 Constitutional general appearance Development: appears stated age 0501/01/2019 None Full Exam - General 1994 Constitutional general appearance Hygiene/Attention to Grooming: good hygiene 01/01/2019 None Full Exam - General 1994 Eyes conjunctiva/eyelids Overall: conjunctiva clear 01/01/2019 None Full Exam - General 1994 Eyes conjunctiva/eyelids Overall: cornea clear 01/01/2019 None Full Exam - General 1994 Eyes conjunctiva/eyelids Overall: eyelids normal 01/01/2019 None Full Exam - General 1994 Eyes pupils and irises Overall: pupils equal, round, reactive to light and accomodation 01/01/2019 None Full Exam - General 1995 Ears/Nose/Throat lips/teeth/gingiva Overall: benign lips 01/01/2019 None Full Exam - General 1995 Ears/Nose/Throat lips/teeth/gingiva Overall: normal dentition 01/01/2019 None Full Exam - General 1995 Ears/Nose/Throat oral cavity/pharynx/larynx Overall: oral mucosa clear 01/01/2019 None Full Exam - General 1994 Ears/Nose/Throat oral cavity/pharynx/larynx Overall: oropharyngeal mucosa clear 01/01/2019 None Full Exam - General 1994 Ears/Nose/Throat oral cavity/pharynx/larynx Overall: hypopharynx benign 01/01/2019 None Full Exam - General 1994 Ears/Nose/Throat oral cavity/pharynx/larynx Overall: no masses 01/01/2019 None Full Exam - General 1994 Respiratory auscultation Overall: breath sounds clear bilaterally 01/01/2019 None Full Exam - General 1994 Respiratory respiratory effort/rhythm Overall: no retractions 01/01/2019 None Full Exam - General 1994 Respiratory respiratory effort/rhythm Overall: normal rate 01/01/2019 None Full Exam - General 1994 Cardiovascular extremities Overall: no clubbing 01/01/2019 None Full Exam - General 1994 Cardiovascular auscultation of heart Overall: regular rate 01/01/2019 None Full Exam - General 1994 Cardiovascular auscultation of heart Overall: normal heart sounds 01/01/2019 None Full Exam - General 1994 Abdomen abdominal exam Overall: no tenderness 01/01/2019 None Full Exam - General 1994 Abdomen abdominal exam Overall: normal bowel sounds 01/01/2019 None Full Exam - General 1994 Lymphatic neck nodes Overall: anterior cervical chain benign 01/01/2019 None Full Exam - General 1994 Lymphatic neck nodes Overall: posterior cervical chain benign 01/01/2019 None Full Exam - General 1994 Musculoskeletal spine, ribs and pelvis Overall: spine benign 01/01/2019 None Full Exam - General 1994 Musculoskeletal spine, ribs and pelvis Overall: sacroiliac joint benign 01/01/2019 None Full Exam - General 1994 Musculoskeletal spine, ribs and pelvis Overall: good posture 01/01/2019 None Full Exam - General 1994 Musculoskeletal head and neck Overall: head atraumatic 01/01/2019 None Full Exam - General 1994 Musculoskeletal head and neck Overall: cervical spine benign 01/01/2019 None Full Exam - General 1994 Integument inspection of skin Overall: few scattered moles, no gross abnormalities 01/01/2019 None Full Exam - General 1994 Neurologic cranial nerves Overall: crainial nerves 2 - 12 grossly intact 01/01/2019 None Full Exam - General 1994 Psychiatric orientation/consciousness Overall: oriented to person, place and time 01/01/2019 None Full Exam - General 1994 Psychiatric mood and affect Overall: normal mood and affect 01/01/2019 None Full Exam - General 1994 Neurologic gait Conventional walking: unsteady 01/01/2019 None Full Exam - General 1994 Neurologic gait Conventional walking: wide-based 01/01/2019 None Full Exam - General 1994 Neurologic gait Conventional walking: shuffling 01/01/2019 None Full Exam - General 1994 Ears/Nose/Throat otoscopic exam External auditory canal: complete cerumen impaction 01/01/2019 wax in both ear canals - with white plastic debris from hearing aide in left ear canal - removed with currette Full Exam - General 1994 Ears/Nose/Throat otoscopic exam Tympanic membrane: not visualized until cerumen removed, TM pearly 01/01/2019 None Procedures Procedure Codes Date THER/PROPH/DIAG INJ SC/IM CPT-4: 86924 01/01/2019 TRIAMCINOLONE ACET INJ NOS CPT-4: J3301 01/01/2019 REMOVAL OF IMPACTED WAX CPT-4: G0268 01/01/2019 Vital Signs Date Vital 01/01/2019 Blood Pressure 1: 98/60 Code: 8480-6 BMI: 21.7 Code: 04853- 5 Heart Rate 1: 56 bpm Height: 5'9" SpO2: 93% Weight: 147 lbs Functional Status No Functional Status data History of Present Illness Symptom Name Status Result Effective Date Notes Quality intermittent 01/01/2019 None Onset and Resolution ongoing 01/01/2019 None Onset of Symptom _ months ago 01/01/2019 None Pertinent Findings decreased energy level 01/01/2019 None Pertinent Findings Denies cough 01/01/2019 None Location-Major in a generalized area 01/01/2019 None Color red 01/01/2019 None Onset and Resolution ongoing 01/01/2019 None Pertinent Findings Denies fever 01/01/2019 None Pertinent Findings itching 01/01/2019 None Advance Directives No Advance Directive data Encounters Encounter Performer Location Codes Date (95380) OFFICE/OUTPATIENT VISIT NEW Diagnosis: Orthostatic hypotension[ICD10: I95.1] Diagnosis: Parkinson's disease[ICD10: G20] Diagnosis: Malignant neoplasm of prostate[ICD10: C61] Diagnosis: Multi-system degeneration of the autonomic nervous system[ICD10: G90.3] Diagnosis: Vitamin D deficiency, unspecified[ICD10: E55.9] Diagnosis: Secondary malignant neoplasm of bone[ICD10: C79.51] Diagnosis: Allergic rhinitis due to pollen[ICD10: J30.1] Diagnosis: Impacted cerumen, bilateral[ICD10: H61.23] Loren Dubon MD, [facility] CPT-4: 97129 01/01/2019 Plan of Care Planned Activity Notes Codes Status Date Visit Plan: Orthostatic hypotension - due to Parkinson's disease causing Autonomic dysfunction - continue with Florinef at current dose - this may need to be increased from twice daily to three times daily. Parkinson's disease - discussed with patient and his - he needs to continue with Sinemet at current dose and may need to consider a change in the dose of requip as his reports that his symptoms do not appear to be any better with the Requip. 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 Vitamin D deficiency - check labs, calcium and vit d level. Allergies due to pollen - Kenalog 60mg IM today. Cerumen removed from patient's ears today - he had some parts of his hearing aide on the left side removed with curettage today. The impacted cerumen was removed with the use of the instrumentation. The patient tolerated the procedure without incident and had improvement in hearing. The wax was removed by the practitioner due to the wax being more complicated to remove, and staff was needed to assist the removal of the wax by holding the ear, and keeping patient stabilized during the removal process. 01/01/2019 Patient Education: Patient Medication Summary Completed 01/01/2019 Instructions Comment . Orthostatic hypotension - due to Parkinson's disease causing Autonomic dysfunction - continue with Florinef at current dose - this may need to be increased from twice daily to three times daily. Parkinson's disease - discussed with patient and his - he needs to continue with Sinemet at current dose and may need to consider a change in the dose of requip as his reports that his symptoms do not appear to be any better with the Requip. 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 Vitamin D deficiency - check labs, calcium and vit d level. Allergies due to pollen - Kenalog 60mg IM today. Cerumen removed from patient's ears today - he had some parts of his hearing aide on the left side removed with curettage today. The impacted cerumen was removed with the use of the instrumentation. The patient tolerated the procedure without incident and had improvement in hearing. The wax was removed by the practitioner due to the wax being more complicated to remove, and staff was needed to assist the removal of the wax by holding the ear, and keeping patient stabilized during the removal process.
--- OUTSIDE RECORDS SUMMARY | 2019-01-18 17:51 | XMS REPORT | Clinical Summary ---
Author Author Admin, [facility] Organization [employer] Address Unknown Phone Unavailable Allergies, Adverse Reactions, [...] Patient Instruction Drug Treatment Unknown - unknown Diagnostic Results Date Name Value Unit Range Description Lab Report: CBC W/DIFF, Comp. Metabolic Panel, Prostatic Specific Ag - Chemistry sodium, serum 141 mmol/L [phone]/02/14 carbon dioxide, venous blood 28.6 mmol/L 21.0-32.0 potassium, serum 4.7 mmol/L 3.5-5.2 chloride, serum 104 mmol/L 98-107 blood glucose 108 mg/dL 65-95 urea nitrogen, blood 24 mg/dL 7-18 creatinine, serum 1.16 mg/dL 0.60-1.30 Estimated Glomerular Filtration Rate (calc) 63 (?) mL/min/1.73m2 =OR > 60 mL/min alanine aminotransferase (SGPT), serum 10 U/L 12-78 aspartate aminotransferase (SGOT), serum 16 U/L 15-37 calcium, serum 8.3 mg/dL 8.5-10.1 bilirubin, serum, total 0.60 mg/dL 0.00-1.00 prostate specific antigen 1.03 ng/mL 0.00-4.00 Lab Report: CBC W/DIFF, Comp. Metabolic Panel, Prostatic Specific Ag - Hematology leukocyte count, blood 5.3 10^3/MM^3 10*3/mm3 4.6-10.2 neutrophils as percent of blood leukocytes 63.1 % 42.2-75.2 monocytes as percent of blood leukocytes 11.9 % 1.7-9.3 lymphocytes as percent of blood leukocytes 21.8 % 20.5-51.1 erythrocyte (RBC) count 3.47 10^6/MM^3 10*6/mm3 4.50-6.50 hemoglobin, blood 11.0 g/dL 14.0-18.0 hematocrit, blood 34.8 % 40.0-54.0 mean corpuscular volume, RBC 100 fL 80-97 mean corpuscular hemoglobin, RBC 31.5 pg 27.0-31.2 mean corpuscular hemoglobin concentration, RBC 31.5 G/DL % 31.8-35.4 red blood cell distribution width 12.7 % 11.6-14.8 platelet count 165 10^3/MM^3 10*3/mm3 142-424 Lab Report: CBC W/DIFF, Comp. Metabolic Panel, Prostatic Specific Ag - Lab Alkaline phosphatase 78 [phone]
--- OUTSIDE RECORDS SUMMARY | 2019-01-18 17:51 | XMS REPORT | Clinical Summary ---
Author Author Admin, [facility] Organization [place] [employer] Address Unknown Phone Unavailable Allergies, Adverse Reactions, [...] Ag - Chemistry sodium, serum 141 mmol/L [phone]/02/14 carbon dioxide, venous blood 28.6 mmol/L 21.0-32.0 [...]
--- OUTSIDE RECORDS SUMMARY | 2019-01-18 17:51 | XMS REPORT | Continuity of Care Document ---
Author Organization Unknown Address Unknown Allergies There is no data. Medications There is no data. Problems Date Dx Coded Attending Type Code Diagnosis Diagnosed By 10/16/2018 C61 Adenocarcinoma of prostate Procedures There is no data. Results There is no data. Encounters ACCT No. Visit Date/Time Discharge Status Pt. Type Provider Facility Loc./Unit Complaint [id number] 01/15/2019 12:41:00 ACT Unknown [id number] 10/23/2018 09:05:44 10/23/2018 23:59:59 DIS Outpatient SHONDA MOTA [facility] [place] [id number] 12/16/2018 15:40:50 12/16/2018 23:59:59 CLS Outpatient
--- NOTE | 2019-01-18 18:22 | ED General ---
General Chief Complaint: Trauma-Non Activation Stated Complaint: FALL - PAIN IN BOTH SHOULDERS Nursing Triage Note: Bilateral shoulder pain. Nursing Sepsis Screen: No Definite Risk History of Present Illness Date Seen by Provider: January 18, 2019 Time Seen by Provider: 18:10 Location Injury Occurred: Home This is an 88-year-old man with a history of metastatic prostate cancer and Parkinson's disease here for left shoulder pain after a fall yesterday. He falls frequently, he attributes this to tripping, he does not get lightheaded and he has not loss consciousness during any of these episodes. He did hit his head yesterday but says that it is not bothering him. No focal weakness, numbness, or tingling, no vomiting, no visual change. He does take a 325 mg dose of aspirin daily. Allergies and Home Medications Allergies Coded Allergies: No Known Drug Allergies (Unverified , 10/04/18) Patient Home Medication List Home Medication List Reviewed: Yes Review of Systems Review of Systems Constitutional: no symptoms reported EENTM: no symptoms reported Respiratory: no symptoms reported Cardiovascular: no symptoms reported Gastrointestinal: no symptoms reported Genitourinary: no symptoms reported Musculoskeletal: see HPI Skin: no symptoms reported Psychiatric/Neurological: No Symptoms Reported Hematologic/Lymphatic: No Symptoms Reported Immunological/Allergic: no symptoms reported Past Ogujxpt-Umcvxj-Gsfcwl Hx Past Med/Social Hx: Reviewed Nursing Past Med/Soc Hx Patient Social History Alcohol Use: Denies Use Recreational Drug Use: No Smoking Status: Never a Smoker 2nd Hand Smoke Exposure: No Recent Hopitalizations: No Physical Abuse: No Sexual Abuse: No Mistreated: No Fear: No Immunizations Up To Date Tetanus Booster (TDap): More than 5yrs PED Vaccines UTD: Yes Seasonal Allergies Seasonal Allergies: No Past Medical History Surgeries: Yes Orthopedic, Rectal Respiratory: No Cardiac: Yes Coronary Artery Disease, High Cholesterol, Hypertension Neurological: Yes Dementia 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) Gastrointestinal: Yes Chronic Constipation, Hemorrhoids Musculoskeletal: Yes (RESTLESS LEG SYNDROME) Chronic Back Pain Endocrine: No HEENT: No Cancer: Yes Prostate Did You Recieve Any Treatments: Yes What Type of Treatment Did You: Chemotherapy Psychosocial: No Integumentary: No Blood Disorders: No Physical Exam Vital Signs Vital Signs - First Documented Capillary Refill : Less Than 3 Seconds Height, Weight, BMI Height: 5'7.00" Weight: 135lbs. oz. 61.755123op; 21.09 BMI Method:Stated General Appearance: No Apparent Distress Eyes: Bilateral Eye PERRL, Bilateral Eye EOMI HEENT: Other (3-4 cm ecchymosis posterior scalp without tenderness or deformity) Neck: Supple, Other (mild diffuse tenderness posteriorly) Respiratory: Chest Non Tender (faint ecchymosis over right lower lateral chest wall), Lungs Clear Cardiovascular: Regular Rate, Rhythm, No Edema, Normal Peripheral Pulses Gastrointestinal: Non Tender, Soft Back: No Vertebral Tenderness Extremity: Other (faint ecchymosis posterior R upper arm, no focal bony tenderness in either shoulder, normal painless ROM both hips and knees) Neurologic/Psychiatric: Alert, Oriented x3, No Motor/Sensory Deficits, Normal 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, 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 Norm as Tested; No Abnormal Cerebellar Tests Skin: Warm/Dry Progress/Results/Core Measures Suspected Sepsis Recent Fever Within 48 Hours: No Infection Criteria Present: None New/Unexplained Altered Menta: No Sepsis Screen: No Definite Risk SIRS Temperature:98.1 Pulse: 57 Respiratory Rate: 18 Blood Pressure 150 /70 Mean: 96 Results/Orders My Orders Orders - CLARK SALAZAR DO Ct Head/Cervical Spine Wo (01/18/19 18:22) Ribs 2-3 View Right (01/18/19 18:22) Humerus 2 View Right (01/18/19 18:22) Shoulder 2 View Left (01/18/19 18:22) Vital Signs/I&O 01/18/19 01/18/19 17:50 17:50 Temp 98.1 98.1 Pulse 57 57 Resp 18 18 B/P (MAP) 150/70 (96) 150/70 (96) Pulse Ox 99 99 O2 Delivery Room Air Room Air Capillary Refill : Less Than 3 Seconds 2 Blood Pressure Mean: 96 Progress Note : Progress Note We obtained imaging of the head and cervical spine based on a age, also x-rays of the right ribs given some ecchymosis in that area although this was not a complaint and an x-ray of the left shoulder although range of motion was intact. Patient overall is nontoxic appearing, imaging has returned negative, he will call his primary care physician for prompt follow-up and will return for any new or worsening symptoms. Departure Impression Primary Impression: Frequent falls Additional Impressions: Head injury, closed Qualified Codes: S09.90XA - Unspecified injury of head, initial encounter Chest wall contusion Qualified Codes: S20.211A - Contusion of right front wall of thorax, initial encounter Shoulder strain Qualified Codes: S46.912A - Strain of unspecified muscle, fascia and tendon at shoulder and upper arm level, left arm, initial encounter Arm contusion Qualified Codes: S40.021A - Contusion of right upper arm, initial encounter Cervical strain Qualified Codes: S16.1XXA - Strain of muscle, fascia and tendon at neck level, initial encounter Disposition: 01 HOME, SELF-CARE Condition: Stable Departure-Patient Inst. Referrals: JACE POND JR, MD (PCP/Family) Primary Care Physician Patient Instructions: Preventing Falls in the Older Adult CLARK SALAZAR DO January 18, 2019 18:22
--- NOTE | 2019-01-18 19:11 | Diagnostic Imaging Report ---
PROCEDURE: CT head and CT cervical spine without contrast. TECHNIQUE: Multiple contiguous axial images were obtained through the brain and cervical spine without the use of intravenous contrast. Sagittal and coronal reformations through the cervical spine were then performed. Auto Exposure Controls were utilized during the CT exam to meet ALARA standards for radiation dose reduction. INDICATION: Head and neck pain after fall. Comparison is made with prior examination from 10/04/2018. FINDINGS: There is prominence of the ventricles and sulci. There is some mild chronic microvascular ischemic disease. There is no hydrocephalus. There is no midline shift. There is no intracranial mass, hemorrhage or extra-axial fluid collection. The calvarium is intact. Sinuses and mastoid air cells are clear. The alignment of the cervical spine is grossly normal. Vertebral body heights are well-maintained. There is multilevel degenerative disc disease. This is associated with some endplate sclerosis and marginal osteophytosis. There is no fracture or traumatic subluxation. The odontoid is intact and the lateral masses are well aligned. The prevertebral soft tissues are within normal limits. There is posterior facet arthropathy. The lung apices are clear. IMPRESSION: Atrophy and some chronic microvascular ischemic disease, however, no acute intracranial abnormality. Moderate diffuse cervical spondylosis and multilevel degenerative disc disease without acute fracture or traumatic subluxation. Dictated by: Dictated on workstation # [id number]
--- NOTE | 2019-01-18 19:22 | Diagnostic Imaging Report ---
INDICATION: Frequent falls. Three views of the right ribs were obtained. FINDINGS: The right lung is clear. There is no pleural effusion or pneumothorax. There are no displaced rib fractures. IMPRESSION: No displaced rib fractures Dictated by: Dictated on workstation # [id number]
--- NOTE | 2019-01-18 19:23 | Diagnostic Imaging Report ---
INDICATION: Fall with pain. EXAMINATION: Two views were obtained. FINDINGS: The alignment is normal. There are mild degenerative changes. There is no fracture or dislocation. There are chronic appearing infiltrates in the left lung base. IMPRESSION: 1. Mild degenerative change in left shoulder without acute fracture dislocation. 2. Chronic appearing interstitial infiltrates in the left lung base. Dictated by: Dictated on workstation # [id number]
--- NOTE | 2019-01-18 19:23 | Diagnostic Imaging Report ---
INDICATION: Pain after fall. Two views were obtained. FINDINGS: The osseous alignment is normal. There is no acute fracture or dislocation. The soft tissues are unremarkable. IMPRESSION: No acute abnormality. Dictated by: Dictated on workstation # [id number]
[2019-01-18 20:02] VITALS: BP 113/92
== END 2019-01-18 20:02 | disposition home or self-care (01) ==
LOC: EDUNIT# 17:46 → ER FS 17:48
DX: S09.90XA Unspecified injury of head, initial encounter (principal); S20.211A Contusion of right front wall of thorax, initial encounter; S46.912A Strain of unspecified muscle, fascia and tendon at shoulder and upper arm level, left arm, initial encounter; S16.1XXA Strain of muscle, fascia and tendon at neck level, initial encounter; R29.6 Repeated falls; G20 Parkinson's disease; F02.80 Dementia in other diseases classified elsewhere, unspecified severity, without behavioral disturbance, psychotic disturbance, mood disturbance, and anxiety; I10 Essential (primary) hypertension; E78.00 Pure hypercholesterolemia, unspecified; I25.10 Atherosclerotic heart disease of native coronary artery without angina pectoris; Z85.46 Personal history of malignant neoplasm of prostate; Z85.830 Personal history of malignant neoplasm of bone; W01.198A Fall on same level from slipping, tripping and stumbling with subsequent striking against other object, initial encounter
CPT/HCPCS: 70450; 71100; 72125; 73030; 73060

== ENCOUNTER → 2019-02-16 | Outpatient (CLI) | payer MEDICARE ==
[2019-02-16 18:18] LABS: BASOPHILS % (AUTO) 0 % (0-10); EOSINOPHILS # (AUTO) 0.1 10^3/uL (0.0-0.3); EOSINOPHILS % (AUTO) 2 % (0-10); HEMATOCRIT 32 % (40-54); HEMOGLOBIN 10.4 G/DL (13.3-17.7); LYMPHOCYTES % (AUTO) 20 % (12-44); MEAN CORPUSCULAR HEMOGLOBIN 32 PG (25-34); MEAN CORPUSCULAR HGB CONC 33 G/DL (32-36); MEAN CORPUSCULAR VOLUME 97 FL (80-99); MEAN PLATELET VOLUME 8.5 FL (7.4-10.4); MONOCYTES # (AUTO) 0.6 X 10^3 (0.0-1.0); MONOCYTES % (AUTO) 13 % (0-12); NEUTROPHILS # (AUTO) 3.1 X 10^3 (1.8-7.8); NEUTROPHILS % (AUTO) 65 % (42-75); PLATELET COUNT 166 10^3/uL (130-400); RED CELL DISTRIBUTION WIDTH 14.7 % (10.0-14.5); WHITE BLOOD COUNT 4.8 10^3/uL (4.3-11.0)
[2019-02-16 18:31] LABS: ALANINE AMINOTRANSFERASE < 6 U/L (0-55); ALBUMIN 4.2 GM/DL (3.2-4.5); ALKALINE PHOSPHATASE 82 U/L (40-136); BILIRUBIN,TOTAL 0.5 MG/DL (0.1-1.0); BUN/CREATININE RATIO 16; CALCIUM 9.3 MG/DL (8.5-10.1); CARBON DIOXIDE 26 MMOL/L (21-32); CHLORIDE 105 MMOL/L (98-107); CREATININE SERUM 1.13 MG/DL (0.60-1.30); GFR ESTIMATED > 60; GLUCOSE 107 MG/DL (70-105); SODIUM 141 MMOL/L (135-145); TOTAL PROTEIN 7.4 GM/DL (6.4-8.2)
[2019-02-16 18:38] LABS: BILIRUBIN,URINE NEGATIVE (NEGATIVE); CLARITY,URINE CLEAR; COLOR,URINE YELLOW; GLUCOSE, URINE (UA) NEGATIVE (NEGATIVE); KETONES,URINE 1+ (NEGATIVE); LEUKOCYTE ESTERASE ,URINE 1+ (NEGATIVE); NITRITE,URINE NEGATIVE (NEGATIVE); PH,URINE 8 (5-9); PROTEIN,URINE 2+ (NEGATIVE); UROBILINOGEN,URINE NORMAL (NORMAL)
[2019-02-16 18:45] LABS: BACTERIA,URINE NEGATIVE /HPF; SQUAMOUS EPITHELIAL CELL,UR 0-2 /HPF
== END ==
LOC: LAB 17:40
PROVIDERS: ATTEND Nurse Practitioner Family
DX: R07.9 Chest pain, unspecified (principal); I25.10 Atherosclerotic heart disease of native coronary artery without angina pectoris; D64.9 Anemia, unspecified
CPT/HCPCS: 36415; 80053; 81000; 83540; 84484; 85025; 93005

== ENCOUNTER → 2019-03-13 | Outpatient (CLI) | payer MEDICARE ==
--- NOTE | 2019-03-13 15:13 | Diagnostic Imaging Report ---
PROCEDURE: CT abdomen and pelvis without contrast. TECHNIQUE: Multiple contiguous axial images were obtained through the abdomen and pelvis without the use of intravenous contrast. Auto Exposure Controls were utilized during the CT exam to meet ALARA standards for radiation dose reduction. INDICATION: Prostate cancer. COMPARISON: No comparison available. FINDINGS: Limited views of the lower thorax reveal reticulations and some tiny calcified nodular foci in keeping with dendriform pulmonary ossification. In addition, there is some tree in bud nodules. These findings are likely related to recurrent aspiration. Left ventricle is dilated and there is severe coronary artery atherosclerosis. Liver is normal. No suspicious liver lesions are seen. Gallbladder is normal. No biliary ductal dilation. Pancreas, spleen and adrenal glands are normal. Kidneys are normal with the exception of a tiny stone in the left kidney. No hydronephrosis. Urinary bladder is normal. CT appearance of the prostate is normal. There is some thickening of the rectum with stranding in the presacral space. The bowel is otherwise normal without dilated loops. No abdominal or pelvic lymphadenopathy. There are sclerotic lesions in S1, L2 and T9. In addition, L3 is sclerotic and there is mild compression fracture with vertebroplasty material present. IMPRESSION: 1. Thickening of the rectum with presacral stranding. While these findings may represent infectious proctitis, it could also represent radiation proctitis, correlate with history. 2. Multiple sclerotic lesions in the spine in keeping with metastatic disease. 3. CT findings of chronic aspiration in the lung bases with associated dendriform pulmonary ossification. Dictated by: Dictated on workstation # [id number]
== END ==
LOC: RAD 14:04
PROVIDERS: ATTEND Family Medicine
DX: C61 Malignant neoplasm of prostate (principal); K62.89 Other specified diseases of anus and rectum; M89.9 Disorder of bone, unspecified; J98.4 Other disorders of lung
CPT/HCPCS: 74176

== ENCOUNTER → 2019-03-24 | Outpatient (CLI) | payer MEDICARE ==
--- NOTE | 2019-03-24 16:57 | Diagnostic Imaging Report ---
Nuclear medicine bone scan. Indication: Prostate cancer This study was performed following administration of 26.7 mCi of 99M technetium MDP. Anterior and posterior whole body images were obtained. There are no prior nuclear medicine studies for comparison. The recent CT abdomen/pelvis film 03/13/2019 noted multiple sclerotic lesions involving the spine. These were felt to be secondary to metastatic disease. On this study there are multiple areas of abnormal uptake involving the skeleton. This includes prominent area abnormal uptake in one of the upper thoracic vertebra, probably T6. There are also smaller foci of increased activity within the vertebral bodies of T10 and in the spinous processes of L1-L2 and L4. The anterior images show intense uptake near the sternoclavicular junction on the right. There is also increased activity in both ribs and in the greater trochanter of the left femur and acetabulum of the right femur. Both kidneys do show increased excretion of the radiotracer. Impression: There are areas of abnormal uptake involving the spine, the bony thorax and the bony pelvis. These findings should be considered secondary to metastatic disease until proven otherwise. Dictated by: Dictated on workstation # [id number]
== END ==
LOC: CARD 11:26
PROVIDERS: ATTEND Nurse Practitioner Family
DX: C61 Malignant neoplasm of prostate (principal)
CPT/HCPCS: 78306

== ENCOUNTER 2019-05-29 18:44 | Emergency (ER) | payer MEDICARE ==
[~2019-05-29] VITALS: Ht 172 cm; Wt 61.0 kg
[2019-05-29] MEDS ORDERED: ONDANSETRON 4 MG/2 ML (SDV) Z0FRAN IVP ONE (19:30)
[2019-05-29] MEDS ORDERED: hydrALAZINE (APESOLINE) 20 MG/ML VIAL IV ONE (19:30)
[2019-05-29] MEDS ORDERED: fentaNYL INJECTION 100 MCG/2 ML AMP IVP ONE (19:30)
--- NOTE | 2019-05-29 19:39 | Diagnostic Imaging Report ---
PROCEDURE: CT head and CT cervical spine without contrast. TECHNIQUE: Multiple contiguous axial images were obtained through the brain and cervical spine without the use of intravenous contrast. Sagittal and coronal reformations through the cervical spine were then performed. Auto Exposure Controls were utilized during the CT exam to meet ALARA standards for radiation dose reduction. INDICATION: Fall, laceration to forehead. COMPARISON: CT head and C-spine from 01/18/2019. FINDINGS: CT HEAD: No intracranial hyperdense hemorrhage or space-occupying mass. No hydrocephalus or midline shift. Chaudhry and white matter differentiation is well preserved. Age-appropriate global atrophy is unchanged. Right frontal subcutaneous hematoma. No acute skull fractures. CT CERVICAL SPINE: No acute fracture in the temporal bones. No acute fracture or traumatic malalignment in the cervical spine. Diffuse osseous demineralization is unchanged. Degenerative changes at the atlantoaxial articulation are similar. Degenerative pannus is present at this level but does not result in significant spinal stenosis. No high-grade spinal stenosis by CT. Lung apices are clear. IMPRESSION: 1. No acute intracranial hemorrhage or skull fracture. Right frontal scalp subcutaneous hematoma. 2. No acute fracture or traumatic malalignment in the cervical spine. Dictated by: Dictated on workstation # [id number]
--- NOTE | 2019-05-29 21:09 | ED Head Injury ---
General Chief Complaint: Trauma-Non Activation Stated Complaint: HEAD LAC Nursing Triage Note: PT FELL AT HOME AND PRESENTS WITH SMALL LAC TO LEFT FOREHEAD Source: patient Exam Limitations: no limitations History of Present Illness Date Seen by Provider: May 29, 2019 Time Seen by Provider: 18:20 Initial Comments Patient is a 88-year-old male with history of Parkinson's who presents with accidental fall from standing. Injury occurred just prior to ED arrival. Patient states he was in process of getting change, lost balance striking the top of his head. Patient with a 3 cm full-thickness irregular laceration to right frontal scalp. Patient reports Soreness. Denies loss of consciousness feeling days, headache or posterior neck pain. Patient takes a daily aspirin but is not on anticoagulation therapy. Patient has minor skin tears to right elbow and forearm. Denies bony extremity extremity injury. Denies medical symptoms prior to fall other than loss of balance which is of a chronic nature. Occurred: just prior to arrival Severity: mild Location: frontal Method of Injury: fell Loss of Consciousness: no loss of consciousness Associated Systoms: Headaches; No Seizure Allergies and Home Medications Allergies Coded Allergies: No Known Drug Allergies (Unverified , 10/04/18) Patient Home Medication List Home Medication List Reviewed: Yes Review of Systems Review of Systems Constitutional: see HPI Eyes: See HPI Ears, Nose, Mouth, Throat: see HPI Respiratory: see HPI Cardiovascular: see HPI Gastrointestinal: no symptoms reported Genitourinary: see HPI Musculoskeletal: see HPI Skin: see HPI Psychiatric/Neurological: See HPI Endocrine: See HPI All Other Systems Reviewed Negative Unless Noted: Yes Past Sxwxjze-Xbiyhx-Hkatdv Hx Past Med/Social Hx: Reviewed Nursing Past Med/Soc Hx Patient Social History 2nd Hand Smoke Exposure: No Recent Foreign Travel: No Contact w/Someone Who Travel: No Recent Infectious Disease Expo: No Recent Hopitalizations: No Physical Abuse: No Sexual Abuse: No Mistreated: No Fear: No Immunizations Up To Date Tetanus Booster (TDap): More than 5yrs PED Vaccines UTD: Yes Seasonal Allergies Seasonal Allergies: No Past Medical History Surgeries: Yes Orthopedic, Rectal Respiratory: No Cardiac: Yes Coronary Artery Disease, High Cholesterol, Hypertension Neurological: Yes Dementia 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) Gastrointestinal: Yes Chronic Constipation, Hemorrhoids Musculoskeletal: Yes (RESTLESS LEG SYNDROME) Chronic Back Pain Endocrine: No HEENT: No Cancer: Yes Prostate Did You Recieve Any Treatments: Yes What Type of Treatment Did You: Chemotherapy Psychosocial: No Integumentary: No Blood Disorders: No Physical Exam Vital Signs Vital Signs - First Documented 05/29/19 18:52 Temp 36.9 Pulse 65 Resp 18 B/P (MAP) 153/65 (94) Pulse Ox 96 O2 Delivery Room Air Capillary Refill : Less Than 3 Seconds Height, Weight, BMI Height: 5'8.00" Weight: 147lbs. oz. 66.841386cs; 20.00 BMI Method:Stated General Appearance: WD/WN, no apparent distress HEENT: PERRL/EOMI, normal ENT inspection, TMs normal, other (3 cm irregular full-thickness right forearm laceration, no hematoma or depression.) Neck: non-tender, full range of motion, supple, normal inspection Cardiovascular: normal peripheral pulses, regular rate, rhythm Respiratory: chest non-tender, lungs clear Gastrointestinal: non tender, soft Back: normal inspection Extremities: normal range of motion, non-tender, other (superfiical skin tear involving the right forearm and wrist. Skin was approximated does not require repair) Psychiatric: alert, oriented x 3 Crainal Nerves: normal hearing, normal speech, PERRL; No abnormal speech Coordination/Gait: abnormal gait Motor/Sensory: no motor deficit, no sensory deficit Skin: normal color, warm/dry Lymphatic: no adenopathy Progress/Results/Core Measures Results/Orders My Orders Orders - LISA WILHELM DO Ct Head/Cervical Spine Wo (05/29/19 19:04) Fentanyl Injection (Sublimaze Injection (05/29/19 19:30) Ondansetron Injection (Zofran Injectio (05/29/19 19:30) Medications Given in ED Current Medications Medications Dose Ordered Sig/Adrian Route Start Time Stop Time Status Last Admin Dose Admin Fentanyl Citrate 25 mcg ONCE ONCE IVP 05/29/19 19:30 05/29/19 19:32 DC 05/29/19 19:52 25 MCG Ondansetron HCl 4 mg ONCE ONCE IVP 05/29/19 19:30 05/29/19 19:32 DC 05/29/19 19:51 4 MG Vital Signs/I&O 05/29/19 18:52 Temp 36.9 Pulse 65 Resp 18 B/P (MAP) 153/65 (94) Pulse Ox 96 O2 Delivery Room Air Blood Pressure Mean: 94 Departure Communication (Admissions) CT head/cervical spine no acute findings per radiology report Accidental fall from standing due to loss of balance. Patient had his walker by his side but was unable to use it to stabilize him while standing as he was changing his clothes. Patient monitored in the ED without change of mental status. CT head/cervical spine nonacute. Right forehead wound cleansed and closed with wound adhesive. Patient's spouse is comfortable taking patient home. Typical closed head injury and wound care instructions instructions provided. Patient's spouse agrees to follow up with PCP for evaluation for potential group home placement. Impression Primary Impression: Head injury Additional Impressions: Scalp laceration Parkinson disease Disposition: 01 HOME, SELF-CARE Condition: Stable Departure-Patient Inst. Decision time for Depature: 21:21 Referrals: MARU CARABALLO MD (PCP/Family) Primary Care Physician Patient Instructions: Minor Head Injury (DC), Parkinson Disease Add. Discharge Instructions: Please keep wound clean and dry. Avoid sudden position changes or standing without walker. Return to the ED if new or worsening symptoms. Follow-up with your PCP for reevaluation in 3-5 days. All discharge instructions reviewed with patient and/or family. Voiced understanding. LISA WILHELM DO May 29, 2019 21:09
[2019-05-29 21:29] VITALS: BP 155/60
== END 2019-05-29 21:40 | disposition home or self-care (01) ==
LOC: EDUNIT# 18:44 → ER FS 18:45
DX: S09.90XA Unspecified injury of head, initial encounter (principal); S01.01XA Laceration without foreign body of scalp, initial encounter; S51.811A Laceration without foreign body of right forearm, initial encounter; S61.511A Laceration without foreign body of right wrist, initial encounter; G20 Parkinson's disease; I10 Essential (primary) hypertension; I25.10 Atherosclerotic heart disease of native coronary artery without angina pectoris; E78.00 Pure hypercholesterolemia, unspecified; F03.90 Unspecified dementia, unspecified severity, without behavioral disturbance, psychotic disturbance, mood disturbance, and anxiety; Z79.82 Long term (current) use of aspirin; Z85.46 Personal history of malignant neoplasm of prostate; Z85.830 Personal history of malignant neoplasm of bone; W18.39XA Other fall on same level, initial encounter; W22.8XXA Striking against or struck by other objects, initial encounter; Y92.009 Unspecified place in unspecified non-institutional (private) residence as the place of occurrence of the external cause
CPT/HCPCS: 12001; 70450; 72125; 96374; 96375

== ENCOUNTER 2019-05-31 09:59 | Emergency (ER) | payer MEDICARE ==
[~2019-05-31] VITALS: Ht 175 cm; Wt 59.0 kg
[2019-05-31] MEDS ORDERED: NS IV 500 ML 500 ML IV ONE (10:23)
--- NOTE | 2019-05-31 10:32 | ED General ---
General Chief Complaint: Trauma-Non Activation Stated Complaint: FALL/FACIAL SWELLING/CONFUSION Nursing Triage Note: PT FELL LAST SATURDAY AND THEN AGAIN LAST NIGHT. PT WAS FOUND ON THE FLOOR BY FAMILY. FAMILY STATES NEW CONFUSION. Nursing Sepsis Screen: No Definite Risk Source of Information: Patient, Caregiver Exam Limitations: No Limitations (KATY PARDO STUDENT) History of Present Illness Date Seen by Provider: May 31, 2019 Time Seen by Provider: 10:15 Initial Comments The patient is a frail appearing 88 y/o male who is here with a chief complaint of confusion/fall. The patient's reports that he fell last night while going to the bathroom and that he has increased confusion this morning. He denies hitting his head but has injuries to both elbows. She also states that this morning he had a large amount of blood in his mouth which she says may be from a recent tooth extraction. Saturday he fell and hit his head and face. He was seen here and evaluated for possible hemorrhage with CT which was ruled out. She denies any nausea, vomiting, diarrhea, cough, or fevers. Location Injury Occurred: HOME Timing/Duration: 4-6 Hours Severity: Mild (KATY PARDO STUDENT) Associated Systoms: No Fever/Chills; Loss of Appetite; No Nausea/Vomiting; Weakness (RUFINA BATISTA MD) Allergies and Home Medications Allergies Coded Allergies: No Known Drug Allergies (Unverified , 10/04/18) Patient Home Medication List Home Medication List Reviewed: Yes (RUFINA BATISTA MD) Review of Systems Review of Systems Constitutional: No fever, No malaise EENTM: No blurred vision, No double vision Respiratory: No cough, No short of breath Cardiovascular: No chest pain, No palpitations (KATY PARDO STUDENT) Constitutional: see HPI EENTM: see HPI Respiratory: no symptoms reported Cardiovascular: No edema, No syncope Gastrointestinal: No nausea, No vomiting Genitourinary: no symptoms reported Musculoskeletal: see HPI, joint pain, joint swelling Skin: change in color, lesions Psychiatric/Neurological: See HPI (RUFINA BATISTA MD) All Other Systems Reviewed Negative Unless Noted: Yes (RUFINA BATISTA MD) Past Hhhslld-Nieoob-Ztrxvp Hx Past Med/Social Hx: Reviewed Nursing Past Med/Soc Hx (RUFINA BATISTA MD) Patient Social History 2nd Hand Smoke Exposure: No Recent Foreign Travel: No Contact w/Someone Who Travel: No Recent Infectious Disease Expo: No Recent Hopitalizations: No Physical Abuse: No Sexual Abuse: No Mistreated: No Fear: No (KATY PARDO STUDENT) Immunizations Up To Date Tetanus Booster (TDap): More than 5yrs PED Vaccines UTD: Yes (KATY PARDO) Seasonal Allergies Seasonal Allergies: No (KATY PARDO) Past Medical History Surgeries: Yes Orthopedic, Rectal Respiratory: No Cardiac: Yes Coronary Artery Disease, High Cholesterol, Hypertension Neurological: Yes Dementia 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) Gastrointestinal: Yes Chronic Constipation, Hemorrhoids Musculoskeletal: Yes (RESTLESS LEG SYNDROME) Chronic Back Pain Endocrine: No HEENT: No Cancer: Yes Prostate Did You Recieve Any Treatments: Yes What Type of Treatment Did You: Chemotherapy Psychosocial: No Integumentary: No Blood Disorders: No (KATY PARDO) Family Medical History Reviewed Nursing Family Hx (RUFINA BATSITA MD) No Pertinent Family Hx (RUFINA BATISTA MD) Physical Exam Vital Signs Vital Signs - First Documented 05/31/19 10:06 Temp 36.0 Pulse 68 Resp 16 B/P (MAP) 133/70 (91) Pulse Ox 96 O2 Delivery Room Air (RUFINA BATISTA MD) Vital Signs Capillary Refill : Less Than 3 Seconds (KATY PARDO STUDENT) Height, Weight, BMI Height: 5'8.00" Weight: 147lbs. oz. 66.660536sy; 19.00 BMI Method:Stated General Appearance: No Apparent Distress, WD/WN HEENT: PERRL/EOMI, TMs Normal Respiratory: Chest Non Tender, Crackles Cardiovascular: Regular Rate, Rhythm, No Edema Rectal: Normal Exam, Normal Rectal Tone, Heme Negative Stool Neurologic/Psychiatric: Alert, Oriented x3, Normal Mood/Affect (KATY PARDO STUDENT) General Appearance: No Apparent Distress, Thin HEENT: PERRL/EOMI, TMs Normal Neck: Normal Inspection, Non Tender, Supple Respiratory: Chest Non Tender, Crackles (bilateral bases) Cardiovascular: Regular Rate, Rhythm, No Murmur Back: Normal Inspection, No CVA Tenderness, No Vertebral Tenderness Extremity: Normal Range of Motion, Non Tender, Other (right elbow with contusion and abrasion but no difficulty in range of motion) Neurologic/Psychiatric: Alert, Oriented x3, Normal Mood/Affect, Other (appears weak) Skin: Warm/Dry, Ecchymosis (multiple areas of ecchymosis on the head, face and right elbow.), Other (small abrasion covered by Band-Aid to the right elbow.) (RUFINA BATISTA MD) Progress/Results/Core Measures Suspected Sepsis Recent Fever Within 48 Hours: No Infection Criteria Present: None New/Unexplained Altered Menta: No Sepsis Screen: No Definite Risk SIRS Temperature: Pulse: 68 Respiratory Rate: 16 Laboratory Tests 05/31/19 10:11: White Blood Count 6.4 Blood Pressure 133 /70 Mean: 91 Laboratory Tests 05/31/19 10:11: Creatinine 0.95, Platelet Count 172, Total Bilirubin 0.6 (KATY PARDO MED STUDENT) Results/Orders Lab Results Laboratory Tests Test 05/31/19 10:11 05/31/19 11:06 Range/Units White Blood Count 6.4 4.3-11.0 10^3/uL Red Blood Count 3.65 L 4.35-5.85 10^6/uL Hemoglobin 11.5 L 13.3-17.7 G/DL Hematocrit 36 L 40-54 % Mean Corpuscular Volume 98 80-99 FL Mean Corpuscular Hemoglobin 32 25-34 PG Mean Corpuscular Hemoglobin Concent 32 32-36 G/DL Red Cell Distribution Width 14.2 10.0-14.5 % Platelet Count 172 130-400 10^3/uL Mean Platelet Volume 8.8 7.4-10.4 FL Neutrophils (%) (Auto) 66 42-75 % Lymphocytes (%) (Auto) 22 12-44 % Monocytes (%) (Auto) 11 0-12 % Eosinophils (%) (Auto) 2 0-10 % Basophils (%) (Auto) 0 0-10 % Neutrophils # (Auto) 4.2 1.8-7.8 X 10^3 Lymphocytes # (Auto) 1.4 1.0-4.0 X 10^3 Monocytes # (Auto) 0.7 0.0-1.0 X 10^3 Eosinophils # (Auto) 0.1 0.0-0.3 10^3/uL Basophils # (Auto) 0.0 0.0-0.1 10^3/uL Sodium Level 138 135-145 MMOL/L Potassium Level 3.7 3.6-5.0 MMOL/L Chloride Level 103 98-107 MMOL/L Carbon Dioxide Level 27 21-32 MMOL/L Anion Gap 8 5-14 MMOL/L Blood Urea Nitrogen 13 7-18 MG/DL Creatinine 0.95 0.60-1.30 MG/DL Estimat Glomerular Filtration Rate > 60 BUN/Creatinine Ratio 14 Glucose Level 97 70-105 MG/DL Calcium Level 8.8 8.5-10.1 MG/DL Corrected Calcium 8.8 8.5-10.1 MG/DL Total Bilirubin 0.6 0.1-1.0 MG/DL Aspartate Amino Transf (AST/SGOT) 16 5-34 U/L Alanine Aminotransferase (ALT/SGPT) < 6 0-55 U/L Alkaline Phosphatase 78 40-136 U/L Troponin I < 0.028 <0.028 NG/ML C-Reactive Protein High Sensitivity 0.44 0.00-0.50 MG/DL Total Protein 7.1 6.4-8.2 GM/DL Albumin 4.0 3.2-4.5 GM/DL Urine Color YELLOW Urine Clarity CLEAR Urine pH 8 5-9 Urine Specific [place] 1.015 L 1.016-1.022 Urine Protein 2+ H NEGATIVE Urine Glucose (UA) NEGATIVE NEGATIVE Urine Ketones NEGATIVE NEGATIVE Urine Nitrite NEGATIVE NEGATIVE Urine Bilirubin NEGATIVE NEGATIVE Urine Urobilinogen NORMAL NORMAL MG/DL Urine Leukocyte Esterase NEGATIVE NEGATIVE Urine RBC (Auto) NEGATIVE NEGATIVE Urine RBC NONE /HPF Urine WBC NONE /HPF Urine Squamous Epithelial Cells 2-5 /HPF Urine Crystals NONE /LPF Urine Bacteria TRACE /HPF Urine Casts NONE /LPF Urine Mucus NEGATIVE /LPF Urine Culture Indicated NO (RUFINA BATISTA MD) My Orders Orders - RUFINA BATISTA MD Ct Head/Cervical Spine Wo (05/31/19 10:23) Chest 1 View, Ap/Pa Only (05/31/19 10:23) Elbow, Right, 3 Views (05/31/19 10:23) Cbc With Automated Diff (05/31/19 10:23) Comprehensive Metabolic Panel (05/31/19 10:23) Hs C Reactive Protein (05/31/19 10:23) Troponin I (05/31/19 10:23) Ua Culture If Indicated (05/31/19 10:23) Ed Iv/Invasive Line Start (05/31/19 10:23) Ns Iv 500 Ml (Sodium Chloride 0.9%) (05/31/19 10:23) Ekg Tracing (05/31/19 10:23) Monitor-Rhythm Ecg Trace Only (05/31/19 10:23) Fecal Occult Bedside (05/31/19 10:23) (RUFINA BATISTA MD) Medications Given in ED Current Medications Medications Dose Ordered Sig/Adrian Route Start Time Stop Time Status Last Admin Dose Admin Sodium Chloride 500 ml @ 0 mls/hr Q0M ONCE IV 05/31/19 10:23 05/31/19 10:25 DC 05/31/19 10:30 999 MLS/HR (RUFINA BATISTA MD) Vital Signs/I&O 05/31/19 10:06 Temp 36.0 Pulse 68 Resp 16 B/P (MAP) 133/70 (91) Pulse Ox 96 O2 Delivery Room Air (RUFINA BATISTA MD) Vital Signs/I&O Capillary Refill : Less Than 3 Seconds (KATY PARDO MED STUDENT) Blood Pressure Mean: 91 Progress Note : Time: 10:30 Progress Note The patient was interviewed/examined and is resting comfortably in the exam room. There appear to be new injuries to both elbows but the possibility of head injury cannot be ruled out. He will be examined by head CT. Lung auscultation revealed crackles at the bases and he will undergo plain chest radiograph to evaluate for pneumonia. Lab analysis will consist of CBC, CMP, Crp, Troponin, and UA to evaluate for metabolic source of confusion and rule out UT. (KATY PARDO MED STUDENT) Progress Note : Progress Note I have seen and evaluated the patient and agree with above except as indicated. I have directed the plan of care. Patient is here with fall again last night. Fell a few days ago. He has had a difficult week after he had tooth extraction on the right upper jaw incisor area. Has had intermittent bleeding from that area. Also has Parkinson's disease which complicates his picture. No report of recent fever or chills. Evaluation as above. We will check labs, urine, chest x- ray, CT head and neck, right elbow and EKG. Monitor patient. 1225: All findings reviewed. This is discussed with patient and family. No indication for admission currently. The daughter will stay with the patient as well as the patient's . They are going to try to get him in with Dr. Dubon tomorrow to discuss further needs. I will send a copy of the chart to Dr. Dubon. Discharged home with return precautions. Patient family and the patient verbalize understanding instructions and agreement with plan. (RUFINA BATISTA MD) ECG Initial ECG Impression Date: May 31, 2019 Initial ECG Impression Time: 10:19 Initial ECG Rate: 67 Comment Sinus rhythm with interventricular conduction delay and left ventricular hypertrophy with left axis deviation noted. Similar to previous of 02/16/19. No evidence of ST elevation UT. Interpreted by me. (RUFINA BATISTA MD) Diagnostic Imaging Diagonstic Imaging: CT Plain Films/CT/US/NM/MRI: c-spine, head Comments [facility]. [place], [place] NAME: MARNIE BANERJEE [facility] REC#: [id number] PT STATUS: REG ER : 1930 PHYSICIAN: RUFINA BATISTA MD ADMIT DATE: 05/31/19/ER Draft Date of Exam:05/31/19 CT HEAD/CERVICAL SPINE WO PROCEDURE: CT head and CT cervical spine without contrast. TECHNIQUE: Multiple contiguous axial images were obtained through the brain and cervical spine without the use of intravenous contrast. Sagittal and coronal reformations through the cervical spine were then performed. Auto Exposure Controls were utilized during the CT exam to meet ALARA standards for radiation dose reduction. INDICATION: Found down on floor. Comparison with 05/29/2019. FINDINGS: CT head: Cortical atrophy with chronic white matter changes again noted. Ventricles are not dilated. No intracranial hemorrhage is demonstrated. No extra-axial fluid collections. Basal cisterns are clear. The mastoid air cells are well-aerated and clear. No evidence of calvarial fracture. IMPRESSION: No acute abnormalities have occurred since previous exam. CT cervical spine: Sagittal and coronal reformatted images show good alignment. Body heights well-maintained. Diffuse degenerative disc and facet disease again noted with hypertrophic endplate changes. The atlantoaxial joint is intact. There are no acute fractures. IMPRESSION: Stable CT cervical spine with diffuse degenerative changes. Dictated on workstation # [id number] Dict: 05/31/19 1111 Trans: 05/31/19 1116 JAHAIRA [id number] Interpreted by: TRICE KWONG MD Electronically signed by: Diagonstic Imaging: Xray Plain Films/CT/US/NM/MRI: chest Comments [facility] [place] [place] NAME: MARNIE BANERJEE [employer] REC#: [id number] PT STATUS: REG ER : 1930 PHYSICIAN: RUFINA BATISTA MD ADMIT DATE: 05/31/19/ER Draft Date of Exam:05/31/19 CHEST 1 VIEW, AP/PA ONLY INDICATION: Recurrent falls. FINDINGS: Portable chest. There is chronic interstitial infiltrate noted in the lung bases bilaterally which does not appear significantly changed when compared to 01/18/2019. Heart is not enlarged. No pulmonary edema. No pneumothorax or pleural effusion. No rib fractures are demonstrated. IMPRESSION: Chronic bibasilar infiltrates without acute abnormality. Dictated on workstation # [id number] Dict: 05/31/19 1118 Trans: 05/31/19 1128 [facility] [id number] Interpreted by: TRICE KWONG MD Electronically signed by: Diagonstic Imaging: Xray Comments [facility]. [place], [place] NAME: MARNIE BANERJEE [employer] [facility] REC#: [id number] PT STATUS: REG ER : 1930 PHYSICIAN: RUFINA BATISTA MD ADMIT DATE: 05/31/19/ER Draft Date of Exam:05/31/19 ELBOW, RIGHT, 3 VIEWS INDICATION: Fall. Right elbow pain. FINDINGS: 3 views. Radius and ulna are in good alignment with capitellum and trochlea. Articulating surfaces are smooth. There are no fractures. No joint effusion. There are hypertrophic changes noted along the medial epicondyle as well as enthesophyte along the olecranon triceps attachment. IMPRESSION: Degenerative changes with no acute abnormalities noted. Dictated on workstation # [id number] Dict: 05/31/19 1119 Trans: 05/31/19 1130 JAHAIRA [id number] Interpreted by: TRICE KWONG MD Electronically signed by: (RUFINA BATISTA MD) Departure Impression Primary Impression: Elbow contusion Qualified Codes: S50.01XA - Contusion of right elbow, initial encounter Additional Impressions: Weakness Frequent falls Minor head injury Qualified Codes: S09.90XA - Unspecified injury of head, initial encounter Disposition: HOME, SELF-CARE Condition: Stable Departure-Patient Inst. Decision time for Depature: 12:32 (RUFINA BATISTA MD) Referrals: MARU DUBON MD (PCP/Family) Primary Care Physician Patient Instructions: Minor Head Injury (DC), Contusion (DC), Generalized Weakness Add. Discharge Instructions: All discharge instructions reviewed with patient and/or family. Voiced understanding. Follow-up with Dr. Dubon tomorrow for recheck and further evaluation. Drink plenty of fluids and eat a normal diet. Use assistive devices when walking. Return for worsening, fever, vomiting, weakness, breathing problems or other concerns as needed. Copy Copies To 1: MARU DUBON MD, JOSHUA K MED STUDENT May 31, 2019 10:32 RUFINA BATISTA MD May 31, 2019 12:30
[2019-05-31 10:35] LABS: BASOPHILS % (AUTO) 0 % (0-10); EOSINOPHILS # (AUTO) 0.1 10^3/uL (0.0-0.3); EOSINOPHILS % (AUTO) 2 % (0-10); HEMATOCRIT 36 % (40-54); HEMOGLOBIN 11.5 G/DL (13.3-17.7); LYMPHOCYTES # (AUTO) 1.4 X 10^3 (1.0-4.0); LYMPHOCYTES % (AUTO) 22 % (12-44); MEAN CORPUSCULAR HEMOGLOBIN 32 PG (25-34); MEAN CORPUSCULAR HGB CONC 32 G/DL (32-36); MEAN CORPUSCULAR VOLUME 98 FL (80-99); MEAN PLATELET VOLUME 8.8 FL (7.4-10.4); MONOCYTES # (AUTO) 0.7 X 10^3 (0.0-1.0); MONOCYTES % (AUTO) 11 % (0-12); NEUTROPHILS # (AUTO) 4.2 X 10^3 (1.8-7.8); NEUTROPHILS % (AUTO) 66 % (42-75); PLATELET COUNT 172 10^3/uL (130-400); RED CELL DISTRIBUTION WIDTH 14.2 % (10.0-14.5); WHITE BLOOD COUNT 6.4 10^3/uL (4.3-11.0)
[2019-05-31 10:43] LABS: ALANINE AMINOTRANSFERASE < 6 U/L (0-55); ALKALINE PHOSPHATASE 78 U/L (40-136); BILIRUBIN,TOTAL 0.6 MG/DL (0.1-1.0); BUN/CREATININE RATIO 14; CALCIUM 8.8 MG/DL (8.5-10.1); CARBON DIOXIDE 27 MMOL/L (21-32); CHLORIDE 103 MMOL/L (98-107); CREATININE SERUM 0.95 MG/DL (0.60-1.30); GFR ESTIMATED > 60; GLUCOSE 97 MG/DL (70-105); POTASSIUM 3.7 MMOL/L (3.6-5.0); SODIUM 138 MMOL/L (135-145); TOTAL PROTEIN 7.1 GM/DL (6.4-8.2)
[2019-05-31 11:10] LABS: BILIRUBIN,URINE NEGATIVE (NEGATIVE); CLARITY,URINE CLEAR; COLOR,URINE YELLOW; GLUCOSE, URINE (UA) NEGATIVE (NEGATIVE); KETONES,URINE NEGATIVE (NEGATIVE); LEUKOCYTE ESTERASE ,URINE NEGATIVE (NEGATIVE); NITRITE,URINE NEGATIVE (NEGATIVE); PH,URINE 8 (5-9); PROTEIN,URINE 2+ (NEGATIVE); UROBILINOGEN,URINE NORMAL (NORMAL)
--- NOTE | 2019-05-31 11:17 | Diagnostic Imaging Report ---
PROCEDURE: CT head and CT cervical spine without contrast. TECHNIQUE: Multiple contiguous axial images were obtained through the brain and cervical spine without the use of intravenous contrast. Sagittal and coronal reformations through the cervical spine were then performed. Auto Exposure Controls were utilized during the CT exam to meet ALARA standards for radiation dose reduction. INDICATION: Found down on floor. Comparison with 05/29/2019. FINDINGS: CT head: Cortical atrophy with chronic white matter changes again noted. Ventricles are not dilated. No intracranial hemorrhage is demonstrated. No extra-axial fluid collections. Basal cisterns are clear. The mastoid air cells are well-aerated and clear. No evidence of calvarial fracture. IMPRESSION: No acute abnormalities have occurred since previous exam. CT cervical spine: Sagittal and coronal reformatted images show good alignment. Body heights well-maintained. Diffuse degenerative disc and facet disease again noted with hypertrophic endplate changes. The atlantoaxial joint is intact. There are no acute fractures. IMPRESSION: Stable CT cervical spine with diffuse degenerative changes. Dictated by: Dictated on workstation # [id number]
[2019-05-31 11:22] LABS: BACTERIA,URINE TRACE /HPF
--- NOTE | 2019-05-31 11:29 | Diagnostic Imaging Report ---
INDICATION: Recurrent falls. FINDINGS: Portable chest. There is chronic interstitial infiltrate noted in the lung bases bilaterally which does not appear significantly changed when compared to 01/18/2019. Heart is not enlarged. No pulmonary edema. No pneumothorax or pleural effusion. No rib fractures are demonstrated. IMPRESSION: Chronic bibasilar infiltrates without acute abnormality. Dictated by: Dictated on workstation # [id number]
--- NOTE | 2019-05-31 11:31 | Diagnostic Imaging Report ---
INDICATION: Fall. Right elbow pain. FINDINGS: 3 views. Radius and ulna are in good alignment with capitellum and trochlea. Articulating surfaces are smooth. There are no fractures. No joint effusion. There are hypertrophic changes noted along the medial epicondyle as well as enthesophyte along the olecranon triceps attachment. IMPRESSION: Degenerative changes with no acute abnormalities noted. Dictated by: Dictated on workstation # [id number]
[2019-05-31 12:53] VITALS: BP 119/62
== END 2019-05-31 12:52 | disposition home or self-care (01) ==
LOC: EDUNIT# 09:59 → ER 10:01
DX: S09.90XA Unspecified injury of head, initial encounter (principal); S50.01XA Contusion of right elbow, initial encounter; R53.1 Weakness; R29.6 Repeated falls; I10 Essential (primary) hypertension; E78.00 Pure hypercholesterolemia, unspecified; I25.10 Atherosclerotic heart disease of native coronary artery without angina pectoris; F03.90 Unspecified dementia, unspecified severity, without behavioral disturbance, psychotic disturbance, mood disturbance, and anxiety; Z85.830 Personal history of malignant neoplasm of bone; Z85.46 Personal history of malignant neoplasm of prostate; W19.XXXA Unspecified fall, initial encounter; Y92.009 Unspecified place in unspecified non-institutional (private) residence as the place of occurrence of the external cause
CPT/HCPCS: 36415; 70450; 71045; 72125; 73080; 80053; 81000; 82274; 84484; 85025; 86141; 93005; 93041; 96360; 96361

== ENCOUNTER 2019-06-16 09:30 | Emergency (ER) | payer MEDICARE ==
[~2019-06-16] VITALS: Ht 172 cm; Wt 61.3 kg
[2019-06-16] MEDS ORDERED: ASPIRIN 81 MG CHEW (CHILDREN'S ASA) PO ONE (09:45)
[2019-06-16 09:51] LABS: HEMATOCRIT 36 % (40-54); HEMOGLOBIN 11.8 G/DL (13.3-17.7); MEAN CORPUSCULAR HEMOGLOBIN 32 PG (25-34); MEAN CORPUSCULAR VOLUME 98 FL (80-99); WHITE BLOOD COUNT 5.4 10^3/uL (4.3-11.0)
[2019-06-16 09:52] LABS: BASOPHILS % (AUTO) 0 % (0-10); EOSINOPHILS # (AUTO) 0.1 10^3/uL (0.0-0.3); EOSINOPHILS % (AUTO) 2 % (0-10); LYMPHOCYTES # (AUTO) 1.3 X 10^3 (1.0-4.0); LYMPHOCYTES % (AUTO) 23 % (12-44); MEAN CORPUSCULAR HGB CONC 33 G/DL (32-36); MEAN PLATELET VOLUME 8.8 FL (7.4-10.4); MONOCYTES # (AUTO) 0.7 X 10^3 (0.0-1.0); MONOCYTES % (AUTO) 12 % (0-12); NEUTROPHILS # (AUTO) 3.4 X 10^3 (1.8-7.8); NEUTROPHILS % (AUTO) 62 % (42-75); PLATELET COUNT 194 10^3/uL (130-400); RED CELL DISTRIBUTION WIDTH 14.6 % (10.0-14.5)
--- NOTE | 2019-06-16 09:57 | Diagnostic Imaging Report ---
INDICATION: Shortness of breath. PA chest obtained at 09:27 a.m. and compared to 05/31/2019. FINDINGS: Heart and mediastinal silhouette are normal in appearance. There are chronic appearing increased basilar markings which are similar to the previous study. There is no new infiltrate or pneumothorax or pleural fluid. IMPRESSION: Chronic appearing increased basilar markings are present which are similar to the prior study. There is no pneumothorax or pleural fluid or new infiltrate. Dictated by: Dictated on workstation # [id number]
[2019-06-16 10:12] LABS: ALANINE AMINOTRANSFERASE 7 U/L (0-55); ALBUMIN 4.2 GM/DL (3.2-4.5); ALKALINE PHOSPHATASE 96 U/L (40-136); BILIRUBIN,TOTAL 0.6 MG/DL (0.1-1.0); BUN/CREATININE RATIO 17; CALCIUM 8.6 MG/DL (8.5-10.1); CARBON DIOXIDE 31 MMOL/L (21-32); CHLORIDE 103 MMOL/L (98-107); CREATININE SERUM 0.93 MG/DL (0.60-1.30); GFR ESTIMATED > 60; GLUCOSE 103 MG/DL (70-105); SODIUM 144 MMOL/L (135-145); TOTAL PROTEIN 7.4 GM/DL (6.4-8.2)
--- NOTE | 2019-06-16 10:25 | ED Chest Pain ---
General Chief Complaint: Chest Pain Stated Complaint: CHEST PAIN Nursing Triage Note: patient states has had intermittent chest pain since yesterday evening that is currently rated at 5/10. Has not taken anything for pain. States pain causes mild shortness of breath. Denies nausea/vomiting. Has never had VT, but has had 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 Nursing Sepsis Screen: No Definite Risk Source: patient, family Exam Limitations: no limitations History of Present Illness Date Seen by Provider: Jun 16, 2019 Time Seen by Provider: 09:35 Initial Comments Presents with intermittent sharp chest pain which is lasted for a few minutes occurring since yesterday. On arrival is without chest pain and denies shortness of air. Has not taken any of his medications today. Past medical history significant for coronary artery disease without history of myocardial infarction. Patient's had 7 coronary stents placed. Also history of bone cancer. Timing/Duration: 24 hours, intermittent, resolved prior to arrival, gone now Severity/Quality: mild Location: central, epigastric Radiation: no radiation Activities at Onset: none Associated Symptoms: No abdominal pain, No back pain, No diaphoresis, No dizziness, No edema, No fever/chills, No nausea/vomiting, No rash; shortness of breath Allergies and Home Medications Allergies Coded Allergies: amlodipine (Verified Allergy, Unknown, rash, itching , 06/16/19) Patient Home Medication List Home Medication List Reviewed: Yes Review of Systems Review of Systems Constitutional: see HPI; No fever, No malaise, No weakness Respiratory: See HPI; Denies Cough, Denies Orthopnea; Shortness of Air Cardiovascular: See HPI, Chest Pain; Denies Edema, Denies Irregular Heart Rate, Denies Lightheadedness, Denies Palpitations, Denies Syncope Gastrointestinal: See HPI, Abdominal Pain (upper); Denies Constipated, Denies Diarrhea, Denies Difficulty Swallowing; Poor Appetite Musculoskeletal: No back pain, No joint pain, No joint swelling Skin: No lesions, No lumps, No rash Past Cebaaer-Ptnddy-Fgrwni Hx Patient Social History Alcohol Use: Denies Use Recreational Drug Use: No Smoking Status: Never a Smoker 2nd Hand Smoke Exposure: No Recent Foreign Travel: No Contact w/Someone Who Travel: No Recent Infectious Disease Expo: No Recent Hopitalizations: No Physical Abuse: No Sexual Abuse: No Mistreated: No Fear: No Immunizations Up To Date Tetanus Booster (TDap): More than 5yrs PED Vaccines UTD: Yes Seasonal Allergies Seasonal Allergies: No Past Medical History Surgeries: Yes Coronary Stent, Orthopedic, Rectal Respiratory: No Cardiac: Yes (7 stents ) Coronary Artery Disease, High Cholesterol, Hypertension Neurological: Yes Dementia, Parkinson's Disease Sexually Transmitted Disease: No 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) Prostate Problems Gastrointestinal: Yes Chronic Constipation, Hemorrhoids Musculoskeletal: Yes (RESTLESS LEG SYNDROME) Chronic Back Pain Endocrine: No HEENT: No Cancer: Yes Prostate, Bone Did You Recieve Any Treatments: Yes What Type of Treatment Did You: Chemotherapy Psychosocial: No Integumentary: No Blood Disorders: No Family Medical History No Pertinent Family Hx Physical Exam Vital Signs Vital Signs - First Documented 06/16/19 09:45 Temp 36.4 Pulse 61 Resp 16 B/P (MAP) 161/76 (104) Pulse Ox 96 Capillary Refill : Less Than 3 Seconds Height, Weight, BMI Height: 5'8.00" Weight: 147lbs. oz. 66.267338nc; 20.00 BMI Method:Stated General Appearance: No Apparent Distress, WD/WN, Chronically ill, Cachetic; No Mild Distress Neck: Full Range of Motion, Non Tender; No JVD Respiratory: Chest Non Tender, Lungs Clear Cardiovascular: Regular Rate, Rhythm, No Edema, No Gallop, No JVD, No Murmur Gastrointestinal: Normal Bowel Sounds, No Pulsatile Mass, Non Tender, Soft; No Distended, No Guarding Extremity: Normal Capillary Refill, Non Tender, No Calf Tenderness, No Pedal Edema Skin: Normal Color, Warm/Dry Progress/Results/Core Measures Results/Orders Lab Results Laboratory Tests Test 06/16/19 09:35 Range/Units White Blood Count 5.4 4.3-11.0 10^3/uL Red Blood Count 3.67 L 4.35-5.85 10^6/uL Hemoglobin 11.8 L 13.3-17.7 G/DL Hematocrit 36 L 40-54 % Mean Corpuscular Volume 98 80-99 FL Mean Corpuscular Hemoglobin 32 25-34 PG Mean Corpuscular Hemoglobin Concent 33 32-36 G/DL Red Cell Distribution Width 14.6 H 10.0-14.5 % Platelet Count 194 130-400 10^3/uL Mean Platelet Volume 8.8 7.4-10.4 FL Neutrophils (%) (Auto) 62 42-75 % Lymphocytes (%) (Auto) 23 12-44 % Monocytes (%) (Auto) 12 0-12 % Eosinophils (%) (Auto) 2 0-10 % Basophils (%) (Auto) 0 0-10 % Neutrophils # (Auto) 3.4 1.8-7.8 X 10^3 Lymphocytes # (Auto) 1.3 1.0-4.0 X 10^3 Monocytes # (Auto) 0.7 0.0-1.0 X 10^3 Eosinophils # (Auto) 0.1 0.0-0.3 10^3/uL Basophils # (Auto) 0.0 0.0-0.1 10^3/uL Sodium Level 144 135-145 MMOL/L Potassium Level 3.0 L 3.6-5.0 MMOL/L Chloride Level 103 98-107 MMOL/L Carbon Dioxide Level 31 21-32 MMOL/L Anion Gap 10 5-14 MMOL/L Blood Urea Nitrogen 16 7-18 MG/DL Creatinine 0.93 0.60-1.30 MG/DL Estimat Glomerular Filtration Rate > 60 BUN/Creatinine Ratio 17 Glucose Level 103 70-105 MG/DL Calcium Level 8.6 8.5-10.1 MG/DL Corrected Calcium 8.4 L 8.5-10.1 MG/DL Total Bilirubin 0.6 0.1-1.0 MG/DL Aspartate Amino Transf (AST/SGOT) 14 5-34 U/L Alanine Aminotransferase (ALT/SGPT) 7 0-55 U/L Alkaline Phosphatase 96 40-136 U/L Troponin I < 0.30 <0.30 NG/ML Total Protein 7.4 6.4-8.2 GM/DL Albumin 4.2 3.2-4.5 GM/DL My Orders Orders - ROVENSTINERL DO Ed Iv/Invasive Line Start (06/16/19 09:41) Cbc With Automated Diff (06/16/19 09:41) Comprehensive Metabolic Panel (06/16/19 09:41) Troponin I Fs (06/16/19 09:41) Chest 1 View Ap/Pa Only (06/16/19 09:41) Aspirin Chewable Tablet (Baby Aspirin Ch (06/16/19 09:45) Continuous Ekg Monitoring (06/16/19 09:49) Ekg Tracing (06/16/19 09:49) Medications Given in ED Current Medications Medications Dose Ordered Sig/Adrian Route Start Time Stop Time Status Last Admin Dose Admin Aspirin 324 mg ONCE ONCE PO 06/16/19 09:45 06/16/19 09:46 DC 06/16/19 09:54 324 MG Vital Signs/I&O 06/16/19 06/16/19 09:45 10:38 Temp 36.4 Pulse 61 62 Resp 16 20 B/P (MAP) 161/76 (104) 158/72 Pulse Ox 96 95 Blood Pressure Mean: 104 Initial ECG Impression Date: Jun 16, 2019 Initial ECG Impression Time: 09:30 Initial ECG Rate: 65 Initial ECG Rhythm: Normal Sinus Initial ECG Intervals: Normal Initial ECG Impression: Normal Initial ECG Comparisson: No Previous ECG Available Comment no ST changes IVCD Departure Impression Primary Impression: Chest pain Qualified Codes: R07.9 - Chest pain, unspecified Disposition: 01 HOME, SELF-CARE Condition: Stable Departure-Patient Inst. Referrals: MARU CARABALLO MD (PCP/Family) Primary Care Physician Patient Instructions: Chest Pain (DC) RL PATEL DO Jun 16, 2019 10:25
[2019-06-16 10:38] VITALS: BP 158/72
== END 2019-06-16 10:45 | disposition home or self-care (01) ==
LOC: EDUNIT# 09:30 → ER FS 09:31
DX: R07.9 Chest pain, unspecified (principal); I10 Essential (primary) hypertension; E78.00 Pure hypercholesterolemia, unspecified; I25.10 Atherosclerotic heart disease of native coronary artery without angina pectoris; G20 Parkinson's disease; F02.80 Dementia in other diseases classified elsewhere, unspecified severity, without behavioral disturbance, psychotic disturbance, mood disturbance, and anxiety; Z85.46 Personal history of malignant neoplasm of prostate; Z85.830 Personal history of malignant neoplasm of bone; Z95.5 Presence of coronary angioplasty implant and graft; Z88.8 Allergy status to other drugs, medicaments and biological substances
CPT/HCPCS: 36415; 71045; 80053; 84484; 85025; 93005; 93041

== ENCOUNTER 2019-06-20 07:02 | Inpatient (IN) | payer MEDICARE ==
[~2019-06-20] VITALS: Ht 172.7 cm; Wt 60.4 kg
[2019-06-20 07:48] LABS: BASOPHILS % (AUTO) 0 % (0-10); EOSINOPHILS # (AUTO) 0.1 10^3/uL (0.0-0.3); EOSINOPHILS % (AUTO) 2 % (0-10); HEMATOCRIT 34 % (40-54); HEMOGLOBIN 11.1 G/DL (13.3-17.7); LYMPHOCYTES # (AUTO) 0.7 X 10^3 (1.0-4.0); LYMPHOCYTES % (AUTO) 12 % (12-44); MEAN CORPUSCULAR HEMOGLOBIN 32 PG (25-34); MEAN CORPUSCULAR HGB CONC 33 G/DL (32-36); MEAN CORPUSCULAR VOLUME 98 FL (80-99); MEAN PLATELET VOLUME 9.1 FL (7.4-10.4); MONOCYTES # (AUTO) 0.6 X 10^3 (0.0-1.0); MONOCYTES % (AUTO) 10 % (0-12); NEUTROPHILS # (AUTO) 4.7 X 10^3 (1.8-7.8); NEUTROPHILS % (AUTO) 76 % (42-75); PLATELET COUNT 173 10^3/uL (130-400); RED CELL DISTRIBUTION WIDTH 14.8 % (10.0-14.5); WHITE BLOOD COUNT 6.2 10^3/uL (4.3-11.0)
[2019-06-20] MEDS ORDERED: LIDOCAINE 1% INJ 20 ML 20 ML VIAL ONE (07:57)
[2019-06-20 08:04] LABS: BUN/CREATININE RATIO 19; CALCIUM 8.5 MG/DL (8.5-10.1); CARBON DIOXIDE 31 MMOL/L (21-32); CHLORIDE 101 MMOL/L (98-107); CREATININE SERUM 0.75 MG/DL (0.60-1.30); GFR ESTIMATED > 60; GLUCOSE 105 MG/DL (70-105); POTASSIUM 3.2 MMOL/L (3.6-5.0); SODIUM 141 MMOL/L (135-145)
[2019-06-20] MEDS ORDERED: KCL 20 MEQ TAB (K-DUR) PO ONE (08:15)
[2019-06-20] MEDS ORDERED: LIDOCAINE 1% INJ 20 ML 20 ML VIAL INJ ONE (08:45)
--- NOTE | 2019-06-20 09:01 | Diagnostic Imaging Report ---
PROCEDURE: CT head and CT cervical spine without contrast. TECHNIQUE: Multiple contiguous axial images were obtained through the brain and cervical spine without the use of intravenous contrast. Sagittal and coronal reformations through the cervical spine were then performed. Auto Exposure Controls were utilized during the CT exam to meet ALARA standards for radiation dose reduction. INDICATION: Headache and shoulder pain. Comparison made with prior examination 05/31/2019. FINDINGS: There is prominence of ventricles and sulci. There is some chronic microvascular ischemic disease. There is no hydrocephalus. There is no midline shift. There is no mass, hemorrhage or extra-axial fluid collection. There is left frontal scalp hematoma. The calvarium is intact. Sinuses and mastoid air cells are clear. The alignment of the cervical spine is grossly normal. The vertebral body heights are well-maintained. There is no fracture or traumatic subluxation. The odontoid is intact and lateral masses are well aligned. There is some posterior facet arthropathy. Prevertebral soft tissues are within normal limits. The lung apices are clear. IMPRESSION: Atrophy and some chronic microvascular ischemic disease, however no acute intracranial abnormality. There is a left frontal scalp hematoma. Moderate cervical spondylosis and degenerative disc disease without acute fracture or traumatic subluxation. Dictated by: Dictated on workstation # [id number]
--- NOTE | 2019-06-20 09:49 | ED General ---
General Chief Complaint: Trauma-Non Activation Stated Complaint: DIZZINESS Nursing Triage Note: headache, right neck/shoulder pain. Nursing Sepsis Screen: No Definite Risk Exam Limitations: No Limitations History of Present Illness Date Seen by Provider: Jun 20, 2019 Time Seen by Provider: 07:10 Initial Comments Patient is a 88-year-old male with history of Parkinson's and history of advanced prostate cancer who presents with accidental fall from standing when getting up to use the bathroom. Patient hit head and has small laceration over left frontal scalp. Denies LOC. Reports mild headache and neck pain. Denies other injury or pain complaint. Denies chest pain, SOA, palpitations and focal extremity weakness or other stroke-like extremities. Patient has multiple falls in the past few months due to Parkinsons. Patient routinely uses walker. Patient lives at home and care cares for him at home. Patient is not on currently on anticoagulation therapy. Location Injury Occurred: home Timing/Duration: 1 Hour Severity: Moderate Associated Systoms: Denies Symptoms Allergies and Home Medications Allergies Coded Allergies: amlodipine (Verified Allergy, Unknown, rash, itching , 06/16/19) Patient Home Medication List Home Medication List Reviewed: Yes Review of Systems Review of Systems Constitutional: see HPI EENTM: see HPI Respiratory: see HPI Cardiovascular: see HPI Gastrointestinal: see HPI Genitourinary: see HPI Musculoskeletal: see HPI Skin: see HPI Psychiatric/Neurological: See HPI Hematologic/Lymphatic: See HPI Immunological/Allergic: see HPI All Other Systems Reviewed Negative Unless Noted: Yes Past Xlkcewd-Igjvcd-Abyghe Hx Past Med/Social Hx: Reviewed Nursing Past Med/Soc Hx Patient Social History Alcohol Use: Denies Use Recreational Drug Use: No Smoking Status: Never a Smoker 2nd Hand Smoke Exposure: No Recent Foreign Travel: No Contact w/Someone Who Travel: No Recent Infectious Disease Expo: No Recent Hopitalizations: No Physical Abuse: No Sexual Abuse: No Mistreated: No Fear: No Immunizations Up To Date Tetanus Booster (TDap): More than 5yrs PED Vaccines UTD: Yes Seasonal Allergies Seasonal Allergies: No Past Medical History Surgeries: Yes Coronary Stent, Orthopedic, Rectal Respiratory: No Cardiac: Yes (7 stents ) Coronary Artery Disease, High Cholesterol, Hypertension Neurological: Yes Dementia, Parkinson's Disease Sexually Transmitted Disease: No 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) Prostate Problems Gastrointestinal: Yes Chronic Constipation, Hemorrhoids Musculoskeletal: Yes (RESTLESS LEG SYNDROME) Chronic Back Pain Endocrine: No HEENT: No Cancer: Yes Prostate, Bone Did You Recieve Any Treatments: Yes What Type of Treatment Did You: Chemotherapy Psychosocial: No Integumentary: No Blood Disorders: No Family Medical History No Pertinent Family Hx Physical Exam Vital Signs Vital Signs - First Documented 06/20/19 07:13 Temp 36.7 Pulse 70 Resp 18 B/P (MAP) 155/74 (101) Pulse Ox 95 O2 Delivery Room Air Capillary Refill : Less Than 3 Seconds Height, Weight, BMI Height: 5'8.00" Weight: 147lbs. oz. 66.770144tf; 21.00 BMI Method:Stated General Appearance: No Apparent Distress, WD/WN Eyes: Bilateral Eye Normal Inspection, Bilateral Eye PERRL, Bilateral Eye EOMI HEENT: PERRL/EOMI, TMs Normal, Normal ENT Inspection, Pharynx Normal, Other (3 cm stellate Left forehead laceration. Bleeding is controlled, wound is clean. ) Neck: Full Range of Motion, Normal Inspection, Non Tender, Supple Respiratory: Chest Non Tender, Lungs Clear, Normal Breath Sounds Cardiovascular: Regular Rate, Rhythm, No Edema Gastrointestinal: Normal Bowel Sounds, Non Tender, Soft Back: Normal Inspection, No CVA Tenderness, No Vertebral Tenderness Extremity: Normal Capillary Refill, Normal Range of Motion, Non Tender Focused Exam Sepsis Stage: Ruled Out Procedures/Interventions Wound Location: Face Wound Length (cm): 3 Wound's Depth, Shape: stellate Wound Explored: clean Irrigated w/ Saline (ccs): 100 Anesthesia: 1% Lidocaine Wound Debrided: minimal Suture: Ethlion Suture Size: 5-0 Number of Sutures: 6 Progress/Results/Core Measures Suspected Sepsis Recent Fever Within 48 Hours: No Infection Criteria Present: None New/Unexplained Altered Menta: No Sepsis Screen: No Definite Risk SIRS Temperature: Pulse: 70 Respiratory Rate: 18 Laboratory Tests 06/20/19 07:30: White Blood Count 6.2 Blood Pressure 155 /74 Mean: 101 Laboratory Tests 06/20/19 07:30: Creatinine 0.75, Platelet Count 173 Results/Orders Lab Results Laboratory Tests Test 06/20/19 07:30 Range/Units White Blood Count 6.2 4.3-11.0 10^3/uL Red Blood Count 3.44 L 4.35-5.85 10^6/uL Hemoglobin 11.1 L 13.3-17.7 G/DL Hematocrit 34 L 40-54 % Mean Corpuscular Volume 98 80-99 FL Mean Corpuscular Hemoglobin 32 25-34 PG Mean Corpuscular Hemoglobin Concent 33 32-36 G/DL Red Cell Distribution Width 14.8 H 10.0-14.5 % Platelet Count 173 130-400 10^3/uL Mean Platelet Volume 9.1 7.4-10.4 FL Neutrophils (%) (Auto) 76 H 42-75 % Lymphocytes (%) (Auto) 12 12-44 % Monocytes (%) (Auto) 10 0-12 % Eosinophils (%) (Auto) 2 0-10 % Basophils (%) (Auto) 0 0-10 % Neutrophils # (Auto) 4.7 1.8-7.8 X 10^3 Lymphocytes # (Auto) 0.7 L 1.0-4.0 X 10^3 Monocytes # (Auto) 0.6 0.0-1.0 X 10^3 Eosinophils # (Auto) 0.1 0.0-0.3 10^3/uL Basophils # (Auto) 0.0 0.0-0.1 10^3/uL Sodium Level 141 135-145 MMOL/L Potassium Level 3.2 L 3.6-5.0 MMOL/L Chloride Level 101 98-107 MMOL/L Carbon Dioxide Level 31 21-32 MMOL/L Anion Gap 9 5-14 MMOL/L Blood Urea Nitrogen 14 7-18 MG/DL Creatinine 0.75 0.60-1.30 MG/DL Estimat Glomerular Filtration Rate > 60 BUN/Creatinine Ratio 19 Glucose Level 105 70-105 MG/DL Calcium Level 8.5 8.5-10.1 MG/DL My Orders Orders - LISA WILHELM DO Ct Head/Cervical Spine Wo (06/20/19 07:18) Cbc With Automated Diff (06/20/19 07:19) Basic Metabolic Panel (06/20/19 07:19) Lidocaine 1% Inj 20 Ml (Xylocaine 1% Inj (06/20/19 07:57) Potassium Chloride (Tablet) (K Dur Table (06/20/19 08:15) Lidocaine 1% Inj 20 Ml (Xylocaine 1% Inj (06/20/19 08:45) Medications Given in ED Current Medications Medications Dose Ordered Sig/Adrian Route Start Time Stop Time Status Last Admin Dose Admin Lidocaine HCl 20 ml ONCE ONCE INJ 06/20/19 08:45 06/20/19 08:46 DC 06/20/19 08:10 20 ML Potassium Chloride 40 meq ONCE ONCE PO 06/20/19 08:15 06/20/19 08:16 DC 06/20/19 08:50 40 MEQ Vital Signs/I&O 06/20/19 06/20/19 07:13 07:23 Temp 36.7 36.7 Pulse 70 70 Resp 18 18 B/P (MAP) 155/74 (101) 155/74 (101) Pulse Ox 95 95 O2 Delivery Room Air Room Air Capillary Refill : Less Than 3 Seconds Blood Pressure Mean: 101 Departure Communication (Admissions) Time/Spoke to Consulting Phy: 09:30 (Dr. Pina) CT and lab reviewed. Laceration cleaned and repaired. Patient remains dizzy and is off balance and unable to sit upright without leaning. Patient is at high risk for fall and grave injury. Dr. Pina to admit at [facility]. Impression Primary Impression: Scalp laceration Additional Impression: Head injury Disposition: ADMITTED INPATIENT Condition: Improved Departure-Patient Inst. Patient Instructions: Minor Head Injury (DC) Add. Discharge Instructions: Please keep wound clean and dry. Follow up with your oncologist later this week and you PCP in 7-8 days for suture removal and to discuss hospice care. Return to the ED if new or concerning symptoms. All discharge instructions reviewed with patient and/or family. Voiced understanding. LISA WILHELM DO Jun 20, 2019 09:49
[2019-06-20] MEDS ORDERED: ACETAMINOPHEN 325 MG TABLET PO ONE (10:00)
--- NOTE | 2019-06-20 11:13 | NUR ---
MARNIE BANERJEE admitted to room 427-1, with an admitting diagnosis of fall, on 06/20/19 from ED Zahida Cabrera via EMS report received from Palak FUNES, accompanied by staff .MARNIE BANERJEE introduced to surroundings, call light, bed controls, phone, TV, temperature control, lights, meal times, smoking policy, visitor policy, side rail policy, bathrooms and showers. Patient Rights given to patient in the handbook. MARNIE BANERJEE verbalizes understanding that [facility] is not responsible for the loss or damage to any personal effects or valuables that are kept in the patients posession during their hospitalization. The following Patient Care Plans and discharge were discussed with the patient. MARNIE BANERJEE verbalizes understanding of Interdisciplinary Patient Education. Patient informed about the Rapid Response Team and its purpose.
[2019-06-20 12:00] VITALS: BP 134/63
[2019-06-20] MEDS ORDERED: ACET-2650 PO (12:38)
[2019-06-20] MEDS ORDERED: FERR-84 PO (12:42)
[2019-06-20] MEDS ORDERED: CYAN100071 PO (12:48)
[2019-06-20] MEDS ORDERED: FAMO20TA5 PO (12:52)
[2019-06-20] MEDS ORDERED: SERT100T8 PO (12:52)
[2019-06-20] MEDS ORDERED: LEVO5TAB28 PO (12:52)
[2019-06-20] MEDS ORDERED: ASPI-808 PO (12:57)
[2019-06-20] MEDS ORDERED: ROPI3TAB4 PO (12:58)
[2019-06-20] MEDS ORDERED: CHOL200012 PO (13:00)
[2019-06-20] MEDS ORDERED: FLUT16SP22 NS (13:08)
[2019-06-20] MEDS ORDERED: FLDR.1T PO (13:09)
[2019-06-20] MEDS ORDERED: CARB1TAB43 PO (13:11)
[2019-06-20] MEDS ORDERED: CALC-794 PO (13:13)
[2019-06-20] MEDS ORDERED: CALC-870 PO (13:15)
--- NOTE | 2019-06-20 13:19 | Physical Therapy Evaluation ---
PT Evaluation-General Medical Diagnosis Admission Date Jun 20, 2019 at 12:21 Medical Diagnosis: Fall Onset Date: Jun 20, 2019 Therapy Diagnosis Therapy Diagnosis: falls, debility Height/Weight Height (Feet): 5 Height (Inches): 8.00 Weight (Pounds): 147 Precautions Precautions/Isolations: Fall Prevention, Standard Precautions Weight Bear Status Right Lower Extremity: Right Full Weight Bearing Left Lower Extremity: Left Full Weight Bearing Referral Physician: Yovani Reason for Referral: Evaluation/Treatment Medical History Pertinent Medical History: CAD, HTN, Parkinson's, Prostate CA Additional Medical History metastatic prostate CA, coronary stents, high cholesterol, dementia, chronic constipation, hemorrhoids, chronic back pain Current History Pt with fall this AM on his way to [place], striking his head. To ER with c/o dizziness, LA, and neck pain. Pt's family reports frequent falls, 5 this month already. Reviewed History: Yes Social History Home: Single Level Current Living Status: Spouse Entry Into Home: Stairs With Railing Prior Prior Level of Function SCALE: Activities may be completed with or without assistive devices. 1-Sruyapmvan-laidhbe completes the activity by him/herself with no assistance from a helper. 5-Set-up or Clean-up Assistance-helper sets up or cleans up; patient completes activity. Chadwick assists only prior to or following the activity. 4-Supervision or Touching Assistance-helper provides verbal cues and/or touching/steadying and/or contact guard assistance as patient completes activity. Assistance may be provided throughout the activity or intermittently. 3-Partial/Moderate Assistance-helper does LESS THAN HALF the effort. Chadwick lifts, holds or supports trunk or limbs, but provides less than half the effort. 2-Substantial/Maximal Assistance-helper does MORE THAN HALF the effort. Chadwick lifts or holds trunk or limbs and provides more than half the effort. 2-Tsfpugigr-akdutp does ALL the effort. Patient does none of the effort to complete the activity. Or, the assistance of 2 or more helpers is required for the patient to complete the activity. If activity was not attempted, code reason: 7-Patient Refused. 9-Not Applicable-not attempted and the patient did not perform the activity before the current illness, exacerbation or injury. 10-Not Attempted due to Environmental Limitations-(lack of equipment, weather restraints, etc.). 88-Not Attempted due to Medical Conditions or Safety Concerns. Bed Mobility: 6 Transfers (B,C,W/C): 6 Gait: 6 Stairs: 5 Indoor Mobility (Ambulation): Independent Stairs: Independent Prior Devices Use: Walker (4WW) Prior Device Use: Pt utilizes 4WW. Frequently abandons 4WW when approaching chairs. Also attempts to ambulate (I). PT Evaluation-Current Subjective Pt agreeable. Reports (R) side of neck is "sore" (not rated), denies pain otherwise. Pt confused, does not recall falling this AM. Poor historian, supplemented by family. Objective Patient Orientation: Person Problem Solving: Fair ROM/Strength ROM Upper Extremities Grossly WFL for functional mobility ROM Lower Extremities Grossly WFL for functional mobility Strength Upper Extremities Grossly WFL for functional mobility Strength Lower Extremities Grossly 3+/5 Integumentary/Posture Integumentary See nurses' notes Posture Kyphotic Neuromuscular (Tone, Coordination, Reflexes) Decreased coordination, proprioception Sensory Vision: Functional Hearing: Functional Transfers Sit to Lying (QC): 5 Sit to Stand (QC): 4 Gait Does the Patient Walk?: Yes Mode of Locomotion: Walk Anticipated Mode of Locomotion: Walk Distance (FIM): 1=236-70 ft Walk 10 feet (QC): 3 Walk 50 ft with 2 Turns(QC): 3 Distance: 100' Gait Assistive Device: FWW Comments/Gait Description Pt ambulates with min-mod A x 1. Leaning (L), very narrow base of support, frequently tandem, occasionally scissor. (L) LE crosses midline more often than (R). Consistent skilled VCS for safe use of walker. Wheelchair Training Does the Pt Use a Wheelchair?: No Balance Sitting Static: Fair Sitting Dynamic: Fair Standing Static: Fair Standing Dynamic: Poor (Leaning (L) with gait) Treatment Eval. Up in chair per nursing request with family and nurse present. Assessment/Needs Pt is an 88 y.o. male s/p fall with laceration on (L) forehead. Pt would benefit from skilled PT for functional strengthening, gait and balance training, and education to improve safety, decrease falls. Pt's family reports, gait is near PLOF and Pt had been falling frequently prior to admission. Barriers to progress: memory/recall Rehab Potential: Fair PT Short Term Goals Short Term Goals Time Frame: Jun 27, 2019 Gait Distance Comment: 150-SBA Gait Assistive Device: FWW PT Prison Goals Warehouse Order Puller Goals PT Prison Goals Time Frame: Jul 04, 2019 Sit to Lying (QC): 6 Lying-Sitting on Side/Bed(QC): 6 Sit to Stand (QC): 4 Roll Left to Right (QC): 6 Chair/Tic-uw-Pecyk Xfer(QC): 4 Car Transfer (QC): 3 Does the Patient Walk: Yes Distance: 150 Walk 10 feet (QC): 4 Walk 10ft-Uneven Surface(QC): 4 Walk 50ft with 2 Turns (QC): 4 Walk 150 ft (QC): 4 Gait Level of Assist: 5 Gait Assistive Device: FWW Does the Pt use WC or Scooter?: No # of Steps: 4 1 Step (curb) (QC): 3 4 Steps (QC): 3 Stairs Level Of Assist: 4 PT goals established to allow safe return home with spouse with decreased risk of falls. PT Plan Problem List Problem List: Activity Tolerance, Functional Strength, Safety, Balance, Gait, Transfer, Bed Mobility, ROM Treatment/Plan Treatment Plan: Continue Plan of Care Treatment Plan: Bed Mobility, Education, Functional Activity Niharika, Functional Strength, Gait, Safety, Therapeutic Exercise, Transfers Treatment Duration: Jul 04, 2019 Frequency: 6 times per week Estimated Hrs Per Day: .25 hour per day Patient and/or Family Agrees t: Yes Safety Risks/Education Patient Education: Gait Training, Safety Issues Teaching Recipient: Patient, Family Teaching Methods: Discussion Response to Teaching: Verbalize Understanding, Reinforcement Needed Educated on safety concern of 4WW with Pt's gait; family agrees. Educated on PT POC. Discharge Recommendations Target Placement Continue to assess Time/GCodes Time In: 1252 Time Out: 1310 Total Billed Treatment Time: 18 Total Billed Treatment 1, TUYETC x 18' GIORGIO FUNES DPT Jun 20, 2019 13:19
[2019-06-20] MEDS ORDERED: FLU QUADRIvalent (5+ YOA) 2019-2020 (AFLURIA) 0.5 ML IM ONE (14:30)
[2019-06-20 15:10] VITALS: BP 134/63
[2019-06-20 16:00] VITALS: BP 160/75
[2019-06-20] MEDS ORDERED: ACETAMINOPHEN 500 MG TAB (TYLENOL) ONE (17:31)
[2019-06-20 18:40] VITALS: BP 160/75
[2019-06-20 18:42] VITALS: BP_SYST 146; BP_SYST 160; BP_SYST 94; BP_DIAS 52; BP_DIAS 63; BP_DIAS 75
[2019-06-20 18:51] LABS: BILIRUBIN,URINE NEGATIVE (NEGATIVE); CLARITY,URINE CLEAR; COLOR,URINE YELLOW; GLUCOSE, URINE (UA) NEGATIVE (NEGATIVE); KETONES,URINE NEGATIVE (NEGATIVE); LEUKOCYTE ESTERASE ,URINE NEGATIVE (NEGATIVE); NITRITE,URINE NEGATIVE (NEGATIVE); PH,URINE 8 (5-9); PROTEIN,URINE 1+ (NEGATIVE)
[2019-06-20 18:58] LABS: AMORPHOUS SEDIMENT,UR FEW AMOR PHOSPHATE /LPF; BACTERIA,URINE NEGATIVE /HPF
[2019-06-20] MEDS ORDERED: ONDANSETRON 4 MG/2 ML (SDV) Z0FRAN IVP PRN (19:15)
[2019-06-20] MEDS ORDERED: ONDANSETRON 4 MG (ZOFRAN) ORAL DISSOLVE TAB PO PRN (19:15)
[2019-06-20] MEDS ORDERED: POLYETHYLENE GLYCOL 17 GM (MIRALAX) PACK PO PRN (19:15)
[2019-06-20] MEDS ORDERED: ACETAMINOPHEN 325 MG TABLET PO PRN (19:15)
[2019-06-20] MEDS ORDERED: BISACODYL 10 MG SUPP (DULCOLAX) PR PRN (19:15)
--- NOTE | 2019-06-20 19:27 | History & Physical-Hospitalist ---
History of Present Illness HPI/Chief Complaint Timothy Layne is an 88-year-old male with past medical history of prostate cancer with metastases to the bone currently not on chemotherapy, Parkinson's disease, hypertension, who presented to the [facility] emergency room after an episode of lightheadedness and dizziness which led to a ground-level fall. it is apparent that he hit his head on the fall. He reports feeling lightheaded and dizzy upon standing. He is not sure what happened to cause the fall. He has had many falls recently according to his daughter. He has been living at home and his has been helping to take care of him, but this has become more burdensome lately. He has become less independent with his ADLs. He has an appointment to establish care with Dr. Conner, oncology, to discuss possible treatments for prostate cancer. He had been on another therapy previously but had progression. Source: patient, family Exam Limitations: no limitations Date Seen 06/20/19 Time Seen by a Provider: 13:00 Attending Physician Ciara Trujillo MD PCP Loren Dubon MD Referring Physician Date of Admission Jun 20, 2019 at 12:21 Home Medications & Allergies Home Medications Reviewed patient Home Medication Reconciliation performed by pharmacy medication reconciliations air traffic systems technician and/or nursing. Patients Allergies have been reviewed. Allergies Allergies Coded Allergies amlodipine (Verified Allergy, Unknown, rash, itching , 06/16/19) Past Sxszfyr-Jemvud-Kohcpj Hx Past Med/Social Hx: Reviewed Nursing Past Med/Soc Hx Patient Social History Alcohol Use: Denies Use Recreational Drug Use: No Smoking Status: Never a Smoker 2nd Hand Smoke Exposure: No Physical Abuse Screen: No Sexual Abuse: No Recent Foreign Travel: No Contact w/other who traveled: No Recent Hopitalizations: No Recent Infectious Disease Expo: No Immunizations Up To Date Tetanus Booster (TDap): More than 5yrs Pediatric: Yes Date of Pneumonia Vaccine: Sep 06, 2015 Seasonal Allergies Seasonal Allergies: Yes (takes claritin ) Past Medical History Surgeries: Coronary Stent, Orthopedic, Rectal Currently Using CPAP: No Currently Using BIPAP: No Cardiac: Coronary Artery Disease, High Cholesterol, Hypertension Neurological: Dementia, Parkinson's Disease Sexually Transmitted Disease: No Genitourinary: Prostate Problems Gastrointestinal: Gastroesophageal Reflux, Chronic Constipation, Hemorrhoids Musculoskeletal: Chronic Back Pain Hearing Impairment: Hard of Hearing Cancer: Prostate, Bone Did You Recieve Any Treatments: Yes What Type of Treatment Did You: Chemotherapy Cancer: last chemo - march 12 2019 History of Blood Disorders: No Family History Cardiovascular disease Colon cancer Completed stroke Hypercholesterolemia Kidney disease Myocardial infarction No Pertinent Family Hx Review of Systems Constitutional: dizziness EENTM: no symptoms reported Respiratory: no symptoms reported Cardiovascular: no symptoms reported Gastrointestinal: no symptoms reported Genitourinary: no symptoms reported Musculoskeletal: no symptoms reported Skin: no symptoms reported Psychiatric/Neurological: No Symptoms Reported Physical Exam Physical Exam Vital Signs Vital Signs - First Documented 06/20/19 07:13 Temp 36.7 Pulse 70 Resp 18 B/P (MAP) 155/74 (101) Pulse Ox 95 O2 Delivery Room Air Capillary Refill : Less Than 3 Seconds Height, Weight, BMI Height: 5'8.00" Weight: 147lbs. oz. [id number]; 20.25 BMI Method:Stated General Appearance: No Apparent Distress, Chronically ill, Thin HEENT: PERRL/EOMI, Pharynx Normal, Moist Mucous Membranes Neck: Normal Inspection, Supple Respiratory: Lungs Clear, Normal Breath Sounds, No Respiratory Distress Cardiovascular: Regular Rate, Rhythm, No Edema, No Murmur Gastrointestinal: Normal Bowel Sounds, Non Tender, Soft Extremity: Normal Inspection, Non Tender, No Pedal Edema Neurologic/Psychiatric: Alert, No Motor/Sensory Deficits, Normal Mood/Affect; No Disoriented Skin: Warm/Dry, Ecchymosis (left eye), Other (left frontal scalp abrasion) Results Results/Procedures Labs Laboratory Tests 06/20/19 07:30 Patient resulted labs reviewed. Imaging: Reviewed Imaging Report Assessment/Plan Admission Diagnosis orthostatic hypotension Admission Status: Inpatient Order (span 2 midnights) Reason for Inpatient Admission: orthostatic hypotension with ground-level fall and facial trauma/abrasion Assessment and Plan Orthostatic hypotension Parkinson's disease Dehydration orthostatic vitals upon arrival revealed significant orthostasis begin lactated Ringer's at 100 ml/hr Encouraged patient to be cautious upon standing and to notifying nursing prior to getting up continue Sinemet continue fludrocortisone Herpes zoster infection of the thoracic region Vesicular rash along the left T4 dermatome Begin valacyclovir Prostate cancer with metastasis to the bone Scheduled to establish with Dr. Conner consult palliative care Debility PT/OT Consult manager social responsibility for assistance with placement DVT prophylaxis: Lovenox Diagnosis/Problems Diagnosis/Problems (1) Orthostatic hypotension due to Parkinson's disease Status: Acute (2) Fall from ground level Status: Acute (3) Ecchymosis of left eye Status: Acute Qualifiers: Encounter type: initial encounter Qualified Codes: S05.12XA - Contusion of eyeball and orbital tissues, left eye, initial encounter (4) Hematoma of frontal scalp Status: Acute Qualifiers: Encounter type: initial encounter Qualified Codes: S00.03XA - Contusion of scalp, initial encounter (5) Herpes zoster infection of thoracic region Status: Acute (6) Prostate cancer metastatic to bone Status: Chronic (7) Debility Status: Acute Clinical Quality Measures DVT/VTE Risk/Contraindication: Risk Factor Score Per Nursin RFS Level Per Nursing on Admit: 2=Moderate CIARA TRUJILLO MD Jun 20, 2019 19:27
[2019-06-20 19:44] VITALS: BP 116/58
[2019-06-20] MEDS: SERTRALINE 100 MG (ZOLOFT) TAB PO SCH (20:51)
[2019-06-20] MEDS: SENNA W/DOCUSATE (SENOKOT S) TABLET PO SCH (20:51)
[2019-06-20] MEDS: DOCUSATE SODIUM 100 MG (COLACE) CAP PO SCH (20:51)
[2019-06-20] MEDS: rOPINIRole 1 MG (REQUIP) TABLET PO SCH (20:52)
[2019-06-20] MEDS: FLUDROCORTISONE 0.1 MG (FLORINEF) TAB PO SCH (20:52)
[2019-06-20] MEDS: VALACYCLOVIR 500 MG TAB (VALTREX) PO SCH (20:52)
[2019-06-20] MEDS: MELATONIN 3 MG TABLET PO PRN (20:53)
[2019-06-20] MEDS: FAMOTIDINE 20 MG (PEPCID) TABLET PO SCH (20:53)
[2019-06-20] MEDS: LACTATED RINGERS 1,000 ML IV SCH (20:53)
[2019-06-20] MEDS: ENOXAPARIN 30 MG/0.3 ML (LOVENOX) SYR SC SCH (20:53)
[2019-06-20] MEDS: FLUTICASONE NASAL SPRAY (FLONASE) 16 GM BTL NS SCH (20:58)
[2019-06-20] MEDS ORDERED: SINEMET 10/100 (CARBIDOPA/LEVADOPA) TAB PO SCH (21:00)
[2019-06-21 00:33] VITALS: BP 126/67
[2019-06-21 04:29] VITALS: BP 162/68
[2019-06-21] MEDS: LACTATED RINGERS 1,000 ML IV SCH (06:38)
[2019-06-21] MEDS: SINEMET 10/100 (CARBIDOPA/LEVADOPA) TAB PO SCH ×4 (06:41→20:17)
--- NOTE | 2019-06-21 06:50 | NUR ---
Dr. Pina notified of pt being very combative (kicking/punching) and unwilling to take am medication at this time. Pt has been quite pleasant throughout the night until now. states that she has never seen him this confused and combative. New order rec to give Haldol 1mg IM Q 1hr as needed for agitation. Will continue to monitor.
[2019-06-21] MEDS ORDERED: HALOPERIDOL 5 MG/ML (HALDOL) AMP ONE (06:56)
[2019-06-21 06:58] LABS: BUN/CREATININE RATIO 14; CALCIUM 8.4 MG/DL (8.5-10.1); CARBON DIOXIDE 28 MMOL/L (21-32); CHLORIDE 105 MMOL/L (98-107); CREATININE SERUM 0.79 MG/DL (0.60-1.30); GFR ESTIMATED > 60; GLUCOSE 94 MG/DL (70-105); MAGNESIUM 2.4 MG/DL (1.6-2.4); POTASSIUM 3.4 MMOL/L (3.6-5.0); SODIUM 143 MMOL/L (135-145)
[2019-06-21] MEDS: HALOPERIDOL 5 MG/ML (HALDOL) AMP IM PRN ×2 (07:02→21:33)
[2019-06-21 07:44] VITALS: BP 134/92
[2019-06-21] MEDS: VALACYCLOVIR 500 MG TAB (VALTREX) PO SCH ×3 (08:04→20:16)
[2019-06-21] MEDS: ASPIRIN 325 MG (5 GR) TABLET PO SCH (08:04)
[2019-06-21] MEDS: DOCUSATE SODIUM 100 MG (COLACE) CAP PO SCH ×3 (08:05→20:18)
[2019-06-21] MEDS: FAMOTIDINE 20 MG (PEPCID) TABLET PO SCH ×2 (08:05→20:18)
[2019-06-21] MEDS: FLUDROCORTISONE 0.1 MG (FLORINEF) TAB PO SCH ×3 (08:05→16:04)
[2019-06-21] MEDS: SENNA W/DOCUSATE (SENOKOT S) TABLET PO SCH ×2 (08:05→20:17)
[2019-06-21] MEDS: rOPINIRole 1 MG (REQUIP) TABLET PO SCH ×3 (08:06→20:16)
[2019-06-21] MEDS: LORATADINE (CLARITIN) 10 MG TAB PO SCH (08:06)
[2019-06-21] MEDS ORDERED: KCL 20 MEQ TAB (K-DUR) PO ONE ×2 (08:15→10:33)
[2019-06-21] MEDS: FLUTICASONE NASAL SPRAY (FLONASE) 16 GM BTL NS SCH ×2 (11:23→20:18)
[2019-06-21 12:03] VITALS: BP 168/76
[2019-06-21 16:00] VITALS: BP 164/84
--- NOTE | 2019-06-21 17:17 | Progress Note - Hospitalist ---
Subjective HPI/CC On Admission Date Seen by Provider: Jun 21, 2019 Time Seen by Provider: 10:40 Lightheadedness and dizziness which led to a ground-level fall Subjective/Events-last exam He is awake and alert this morning but confused. He is easily reoriented. He denies any pain at this time. He denies any fevers or chills. He denies any nausea or vomiting. Objective Exam Vital Signs Vital Signs Date Time Temp Pulse Resp B/P (MAP) Pulse Ox O2 Delivery O2 Flow Rate FiO2 06/21/19 16:00 37.4 66 18 164/84 (110) 92 Room Air Capillary Refill : Less Than 3 Seconds General Appearance: No Apparent Distress, Chronically ill, Thin HEENT: Other (Facial trauma) Neck: Normal Inspection, Supple Respiratory: Lungs Clear, Normal Breath Sounds, No Respiratory Distress Cardiovascular: Regular Rate, Rhythm, No Edema, No Murmur Gastrointestinal: Normal Bowel Sounds, Non Tender, Soft Extremity: Normal Inspection, Non Tender Neurologic/Psychiatric: Alert, Disoriented, Motor Weakness (diffuse) Skin: Ecchymosis (Left eye), Other (Left frontal scalp abrasion) Results/Procedures Lab Laboratory Tests 06/21/19 06:08 Patient resulted labs reviewed. 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 Conner consult palliative care Debility PT/OT Consult director of social work for assistance with placement DVT prophylaxis: Lovenox Diagnosis/Problems Diagnosis/Problems (1) Orthostatic hypotension due to Parkinson's disease Status: Acute (2) Fall from ground level Status: Acute (3) Ecchymosis of left eye Status: Acute Qualifiers: Encounter type: initial encounter Qualified Codes: S05.12XA - Contusion of eyeball and orbital tissues, left eye, initial encounter (4) Hematoma of frontal scalp Status: Acute Qualifiers: Encounter type: initial encounter Qualified Codes: S00.03XA - Contusion of scalp, initial encounter (5) Herpes zoster infection of thoracic region Status: Acute (6) Prostate cancer metastatic to bone Status: Chronic (7) Debility Status: Acute Clinical Quality Measures DVT/VTE Risk/Contraindication: Risk Factor Score Per Nursin RFS Level Per Nursing on Admit: 2=Moderate ELIECER TRUJILLO MD Jun 21, 2019 17:17
[2019-06-21 19:26] VITALS: BP 165/74
[2019-06-21] MEDS: ENOXAPARIN 30 MG/0.3 ML (LOVENOX) SYR SC SCH (20:15)
[2019-06-21] MEDS: MELATONIN 3 MG TABLET PO PRN (20:16)
[2019-06-21] MEDS: SERTRALINE 100 MG (ZOLOFT) TAB PO SCH (20:18)
[2019-06-22 00:38] VITALS: BP 133/68
[2019-06-22 04:41] VITALS: BP 169/76
[2019-06-22 05:37] LABS: BUN/CREATININE RATIO 14; CALCIUM 8.3 MG/DL (8.5-10.1); CARBON DIOXIDE 25 MMOL/L (21-32); CHLORIDE 108 MMOL/L (98-107); CREATININE SERUM 0.84 MG/DL (0.60-1.30); GFR ESTIMATED > 60; GLUCOSE 109 MG/DL (70-105); POTASSIUM 3.6 MMOL/L (3.6-5.0); SODIUM 143 MMOL/L (135-145)
[2019-06-22] MEDS: SINEMET 10/100 (CARBIDOPA/LEVADOPA) TAB PO SCH ×4 (06:45→21:04)
[2019-06-22] MEDS: VALACYCLOVIR 500 MG TAB (VALTREX) PO SCH ×3 (07:56→21:04)
[2019-06-22] MEDS: ASPIRIN 325 MG (5 GR) TABLET PO SCH (07:57)
[2019-06-22] MEDS: LORATADINE (CLARITIN) 10 MG TAB PO SCH (07:57)
[2019-06-22] MEDS: rOPINIRole 1 MG (REQUIP) TABLET PO SCH ×3 (07:57→21:04)
[2019-06-22] MEDS: FLUDROCORTISONE 0.1 MG (FLORINEF) TAB PO SCH ×3 (07:57→17:30)
[2019-06-22] MEDS: SENNA W/DOCUSATE (SENOKOT S) TABLET PO SCH ×2 (07:57→21:04)
[2019-06-22] MEDS: FAMOTIDINE 20 MG (PEPCID) TABLET PO SCH ×2 (07:57→21:04)
[2019-06-22] MEDS: FLUTICASONE NASAL SPRAY (FLONASE) 16 GM BTL NS SCH ×2 (07:58→21:05)
[2019-06-22] MEDS: DOCUSATE SODIUM 100 MG (COLACE) CAP PO SCH ×2 (07:58→21:04)
[2019-06-22 08:00] VITALS: BP 128/71
--- NOTE | 2019-06-22 08:18 | Progress Note ---
Subjective Date Seen by a Provider: Jun 22, 2019 Time Seen by a Provider: 08:40 Subjective/Events-last exam PT WAS STANDING AT SIDE OF SINK WITH SUPPORT FROM OCCUPATIONAL THERAPY - HE REPORTS THAT HE IS FEELING WEAK AND UNABLE TO STAND UNDER HIS OWN POWER WITHOUT SUPPORT. HIS FAMILY REPORTS THAT HE HAS BEEN INCREASINGLY CONFUSED, WORSE AT NIGHT. STAFF REPORTS THAT HE SEEMS TO HAVE THE WORST PART OF HIS TROUBLE LATER AT NIGHT/EARLY EVENING. Review of Systems General: Fatigue, Malaise HEENT: Other (BRUISING ON FACE) Pulmonary: No Dyspnea, No Cough Cardiovascular: No: Chest Pain, Palpitations Gastrointestinal: No: Nausea, Abdominal Pain Neurological: Weakness, Confusion Objective Exam Last Set of Vital Signs Vital Signs Date Time Temp Pulse Resp B/P (MAP) Pulse Ox O2 Delivery O2 Flow Rate FiO2 06/22/19 08:00 36.2 77 20 128/71 (90) 94 Room Air Capillary Refill : Less Than 3 Seconds I&O Intake and Output 06/22/19 00:00 Intake Total 1100 ml Output Total 1385 ml Balance -285 ml Intake Oral 1100 ml Output Urine Total 1385 ml # Voids 2 # Bowel Movements 2 General: Alert, No Acute Distress, Other (ORIENTED TO PERSON, NOT PLACE OR TIME) HEENT: Other (BRUISING ON FACE/AROUND LEFT EYE AND CHEEK, RIGHT LATERAL EYE) Neck: Supple Lungs: Clear to Auscultation, Normal Air Movement Heart: Regular Rate Abdomen: Normal Bowel Sounds, Soft, No Tenderness Extremities: No Cyanosis Skin: Other (BRUISING LEFT CHEEK) Neuro: Cranial Nerves 3-12 NL Psych/Mental Status: Other (FLAT AFFECT) Results Lab Laboratory Tests 06/22/19 04:58: Sodium Level 143, Potassium Level 3.6, Chloride Level 108H, Carbon Dioxide Level 25, Anion Gap 10, Blood Urea Nitrogen 12, Creatinine 0.84, Estimat Glomerular Filtration Rate > 60, BUN/Creatinine Ratio 14, Glucose Level 109H, Calcium Level 8.3L Assessment/Plan Assessment/Plan Assess & Plan/Chief Complaint METASTATIC PROSTATE CANCER - METASTATIC TO BONE FALLING EPISODES AUTONOMIC DYSFUNCTION WITH ORTHOSTATIC HYPOTENSION PARKINSON'S DISEASE DEPRESSION GENERALIZED MUSCLE WEAKNESS PROSTATE CANCER - METASTATIC TO BONE WITH PROGRESSION OF DISEASE DESPITE TREATMENT - CONSULT HAS BEEN PLACED TO DR. WARD - DEFER TREATMENT AND OTHER RECOMMENDATIONS TO HIM AT THIS TIME. FALLING EPISODES DUE TO GENERALIZED MUSCLE WEAKNESS - CONTINUE WITH PHYSICAL THERAPY, OCCUPATIONAL THERAPY - WILL DISCUSS [facility]PC AGAIN TOMORROW AFTER DISCUSSION WITH DR. WARD. AUTONOMIC DYSFUNCTION WITH ORTHOSTATIC HYPOTENSION - PT ON FLUDROCORTISONE - MONITOR BLOOD PRESSURES PARKINSON'S DISEASE - SINEMET AND REQUIP RESTARTED ON ADMISSION - THERAPY FOR STRENGTHENING DEPRESSION - RESTARTED SSRI PT HAS OVERALL POOR PROGNOSIS - HOWEVER SINCE HE IS NOW GOING TO BE SEEN BY [place]COLOGY [place], I WILL WAIT ON HOSPICE CONSULTATION UNTIL HE HAS BEEN SEEN BY ONCOLOGY AND FURTHER RECOMMENDATIONS FOR TREATMENT HAVE BEEN MADE BY DR. WARD. UNFORTUNATELY I DO NOT HAVE VERY MANY RECORDS ON MR. BANERJEE HE IS A NEW PATIENT TO MY PRACTICE AND HE IS NOT A GOOD HISTORIAN. Clinical Quality Measures DVT/VTE Risk/Contraindication: Risk Factor Score Per Nursin RFS Level Per Nursing on Admit: 2=Moderate MARU CARABALLO MD Jun 22, 2019 08:18
--- NOTE | 2019-06-22 09:05 | Occupational Therapy Eval ---
OT Evaluation-General/PLF Medical Diagnosis Admission Date Jun 20, 2019 at 12:21 Medical Diagnosis: Fall Onset Date: Jun 20, 2019 Therapy Diagnosis Therapy Diagnosis: impaired ADLs and functional mobility Height/Weight Height (Feet): 5 Height (Inches): 8.00 Weight (Pounds): 147 Precautions Precautions/Isolations: Contact Isolation, Fall Prevention, Standard Precautions, Pressure Ulcer Safety Interventions: Bed Exit Alarm, Reorient-PRN Referral Physician: Yovani Referral Reason: Activity Tolerance, Self Care, Evaluation/Treatment, Strengthening/ROM Medical History Pertinent Medical History: CAD, HTN, Parkinson's, Prostate CA Additional Medical History Per H&P: "Timothy Layne is an 88-year-old male with past medical history of prostate cancer with metastases to the bone currently not on chemotherapy, Parkinson's disease, hypertension, who presented to the [facility] emergency room after an episode of lightheadedness and dizziness which led to a ground- level fall. it is apparent that he hit his head on the fall. He reports feeling lightheaded and dizzy upon standing. He is not sure what happened to cause the fall. He has had many falls recently according to his daughter. He has been living at home and his has been helping to take care of him, but this has become more burdensome lately. He has become less independent with his ADLs. He has an appointment to establish care with Dr. Conner, oncology, to discuss possible treatments for prostate cancer. He had been on another therapy previously but had progression." Current History Pt admitted on 06/20/19 after having a fall in the bathroom, pt reports he does not remember the fall or being transported to the hospital. Pt's indicated pt left FWW outside of bathroom door before he fell. indicates this is pt's 5th fall this month. Reviewed History: Yes Social History Home: Single Level (duplex) Current Living Status: Spouse Entry Into Home: Ramp (in garage), Stairs With Railing (at front and back of duplex) Steps Into Home: 1 ADL-Prior Level of Function SCALE: Activities may be completed with or without assistive devices. 1-Yggyljlufi-cswkcnm completes the activity by him/herself with no assistance from a helper. 5-Set-up or Clean-up Assistance-helper sets up or cleans up; patient completes activity. [place] assists only prior to or following the activity. 4-Supervision or Touching Assistance-helper provides verbal cues and/or touching/steadying and/or contact guard assistance as patient completes activity. Assistance may be provided throughout the activity or intermittently. 3-Partial/Moderate Assistance-helper does LESS THAN HALF the effort. [place] lifts, holds or supports trunk or limbs, but provides less than half the effort. 2-Substantial/Maximal Assistance-helper does MORE THAN HALF the effort. [place] lifts or holds trunk or limbs and provides more than half the effort. 9-Bezrcickq-oavfpk does ALL the effort. Patient does none of the effort to complete the activity. Or, the assistance of 2 or more helpers is required for the patient to complete the activity. If activity was not attempted, code reason: 7-Patient Refused. 9-Not Applicable-not attempted and the patient did not perform the activity before the current illness, exacerbation or injury. 10-Not Attempted due to Environmental Limitations-(lack of equipment, weather restraints, etc.). 88-Not Attempted due to Medical Conditions or Safety Concerns. ADL PLOF Comments Pt unable to report how much assistance was required for ADLs prior to hospitalization. Self Care: Needed Some Help Functional Cognition: Independent DME/Equipment: Shower (walk in) DME/Equipment Comments Pt and indicate he used a walker for mobility prior to hospitalization. OT Current Status Subjective Pt laying in bed at start of session, and daughter present. Pt agreeable to OT evaluation on this date. Pt did not verbalize pain rating this session. Mental Status/Objective Patient Orientation: Person, Time, Situation Attachments: IV Current Upper Extremity ROM WFL YURI DU:shoulder flexion to approximately 80 degrees, pt's indicated he has a torn rotator cuff from prior falls. Elbow/wrist/hand WFL. Upper Extremity Coordination WFL finger to nose test and thumb opposition to each finger Upper Extremity Sensation Pt did not report any changes in sensation. Upper Extremity Strength RUE 4-/5 MMT LUE shoulder 3-/5, elbow 4-/5 MMT Edema: none noted ADL-Treatment Upper Body Dressing (QC): 2 (Pt able to lift arms to assist with don/doff of hospital gown. ) On/Off Footwear (QC): 3 (Pt able to marcial BLE socks, required min A for sitting balance on EOB during task.) Toileting Hygiene (QC): 1 (Pt's brief falling of while standing at sink. Pt required x2 assistance changing brief, performing hygiene, and donning clean brief. Task complete standing at sink, x2 assist due to retropulsion while standing.) Other Treatments Pt laying in bed at start of session, pt able to sit EOB with SBA. Pt required min A to stand, and min A functional mobility to sink using FWW. Pt washed hands at sink, required moderate cues for sequencing of task and locating soap/towels. Pt more retropulsive the longer he stood at sink. Dr Esquivel came into room during stand at sink, assisting with toilet hygiene and donning new brief charanjit mendoza to retropulsion. Pt assisted back to bed with mod x2 assist with pt walking backwards, cues & assist to keep FWW with him as he moved. Pt sat EOB with Min A and cues to reach back for the bed as he sat down. Pt transferred sit to supine with SBA, able to lift BLE into bed by himself. OT assisted pt with changing hospital gown. Post OT session, pt laying in bed, call light in reach, all needs met, and Dr Esquivel present. Education OT Patient Education: Correct positioning, Energy conservation, Modified ADL techniques, Progress toward Goal/Update tx plan, Purpose of tx/functional activities, Transfer techniques Teaching Recipient: Patient, Family Teaching Methods: Demonstration, Discussion Response to Teaching: Verbalize Understanding OT Short Term Goals Short Term Goals Time Frame: Jul 10, 2019 Bathing(FIM): 3 Upper Body Dressing(FIM): 4 Lower Body Dressing(FIM): 4 Toileting(FIM): 3 1=Demonstrate adherence to instructed precautions during ADL tasks. 2=Patient will verbalize/demonstrate understanding of assistive devices/modific ations for ADL. 3=Patient will improve strength/tolerance for activity to enable patient to perform ADL's. OT Mcfp Goals Mcfp Goals Time Frame: Jul 17, 2019 Eating (QC): 6 Oral Hygiene (QC): 5 Shower/Bathe Self (QC): 4 Upper Body Dressing (QC): 5 Lower Body Dressing (QC): 5 On/Off Footwear (QC): 5 Toileting Hygiene (QC): 5 Toilet/Commode Transfer (QC): 5 Additional Goals: 1-Demonstrate ADL Tasks, 2-Verbalize Understanding, 3- ImproveStrength/Niharika 1=Demonstrate adherence to instructed precautions during ADL tasks. 2=Patient will verbalize/demonstrate understanding of assistive devices/modifications for ADL. 3=Patient will improve strength/tolerance for activity to enable patient to perform ADL's. OT Education/Plan Problem List/Assessment Assessment: Decreased Activ Tolerance, Decreased Safety Aware, Decreased UE Strength, Impaired Funct Balance, Impaired I ADL's, Impaired Self-Care Skills, Restricted Funct UE ROM Discharge Recommendations Plan/Recommendations: Continue POC Therapy Discharge Recommendati: 24 Hour Supervision, Post Acute OT Treatment Plan/Plan of Care Treatment,Training & Education: Yes Patient would benefit from OT for education, treatment and training to promote independence in ADL's, mobility, safety and/or upper extremity function for A DL's. Plan of Care: ADL Retraining, Caregiver Training, Functional Mobility, UE Funct Exercise/Act Treatment Duration: Jul 10, 2019 Frequency: 5 times per week Estimated Hrs Per Day: .25 hour per day Agreement: Yes Rehab Potential: Fair Time/GCodes Start Time: 08:35 Stop Time: 08:58 Total Time Billed (hr/min): 23 Billed Treatment Time 1, EVM x 10mins, ADL [id number] ADRIANA IBARRA OT Jun 22, 2019 09:05
[2019-06-22 09:26] LABS: BASOPHILS % (AUTO) 0 % (0-10); EOSINOPHILS % (AUTO) 1 % (0-10); HEMATOCRIT 34 % (40-54); HEMOGLOBIN 11.1 G/DL (13.3-17.7); LYMPHOCYTES # (AUTO) 0.8 X 10^3 (1.0-4.0); LYMPHOCYTES % (AUTO) 18 % (12-44); MEAN CORPUSCULAR HEMOGLOBIN 33 PG (25-34); MEAN CORPUSCULAR HGB CONC 33 G/DL (32-36); MEAN CORPUSCULAR VOLUME 99 FL (80-99); MEAN PLATELET VOLUME 9.6 FL (7.4-10.4); MONOCYTES # (AUTO) 0.8 X 10^3 (0.0-1.0); MONOCYTES % (AUTO) 18 % (0-12); NEUTROPHILS % (AUTO) 64 % (42-75); PLATELET COUNT 147 10^3/uL (130-400); RED CELL DISTRIBUTION WIDTH 15.1 % (10.0-14.5); WHITE BLOOD COUNT 4.6 10^3/uL (4.3-11.0)
[2019-06-22 09:40] LABS: ALBUMIN 3.9 GM/DL (3.2-4.5); BILIRUBIN,DIRECT 0.4 MG/DL (0.0-0.3); BILIRUBIN,INDIRECT 0.8 MG/DL; BILIRUBIN,TOTAL 1.2 MG/DL (0.1-1.0); TOTAL PROTEIN 6.7 GM/DL (6.4-8.2)
--- NOTE | 2019-06-22 10:05 | NUR ---
JAIR/ANDREA faxed over medical records to [facility] for referral. Addendum: 06/22/19 at 1019 by OLEGARIO MENDEZ reviewed / approved
--- NOTE | 2019-06-22 10:19 | NUR ---
PALLIATIVE CARE RN in to see patient. He is laying in bed and agreeable to visit. [place] to person place and circumstance. No family is in room, but her reports that his will be back later this afternoon. Patient answered questions. He reports he lives in [place] and his and daughter live in [place]. He knows that there is talk about a SNF and reports that they are looking at [place] he believes. A recent convert to Dr. Dubon "not all that long" ago, previous PCP was Dr. Cedillo. Patient reports he has had several falls recently. Most recent one is evidenced by two black eyes, the worst being the left. SW has sent a referral to [facility].
[2019-06-22 12:00] VITALS: BP 136/64
[2019-06-22] MEDS ORDERED: CARB1TAB19 PO (13:11)
[2019-06-22] MEDS ORDERED: CHOL5000 PO (13:14)
[2019-06-22] MEDS ORDERED: NITR0.4T42 SL (13:26)
[2019-06-22] MEDS ORDERED: MAGN400O7 PO (13:45)
[2019-06-22] MEDS ORDERED: LEUP22.53 IM (13:45)
--- NOTE | 2019-06-22 13:54 | NUR ---
SPOKE WITH PT'S ( HE WAS UNSURE OF MEDS) [facility] FOLLOWING [facility]ILL DATES [facility]: 03-10-2019 FLONASE #3/90DS 03-30-2019 FLUDROCORTISONE #180/90DS 03-30-2019 FAMOTIDINE #180/90DS 04-06-2019 ROPINIROLE #270/90DS 04-16-2019 CARB/LEVO #720/90DS 04-16-2019 SERTRALINE #135/90DS STATES PT WAS ON LUPRON ( WAS GETTING FROM [facility]) BUT THEY HAVE DECIDED TO NOT LONGER CONTINUE THAT TREATMENT OTC MEDS: APAP 650M TABS QID ASPIRIN 325M DAILY CALCIUM + VIT D: 1 TID TUMS: 1 D VITAMIN D3: 1 DAILY B-12: Q DAILY IRON: 1 ON MON, WED, AND FRI XYZAL: 1 DAILY MILK OF MA ML PO D PRN
--- NOTE | 2019-06-22 14:20 | NUR ---
Pastoral care visit.
--- NOTE | 2019-06-22 15:26 | Physical Therapy Daily Note ---
PT Daily Note-Current Subjective Patient is in bed with spouse present and agrees to PT. Mental Status Patient Orientation: Person, Time, Situation Transfers SCALE: Activities may be completed with or without assistive devices. 2-Kcvwfhcglp-gqepkmk completes the activity by him/herself with no assistance from a helper. 5-Set-up or Clean-up Assistance-helper sets up or cleans up; patient completes activity. [place] assists only prior to or following the activity. 4-Supervision or Touching Assistance-helper provides verbal cues and/or touching/steadying and/or contact guard assistance as patient completes activity. Assistance may be provided throughout the activity or intermittently. 3-Partial/Moderate Assistance-helper does LESS THAN HALF the effort. [place] lifts, holds or supports trunk or limbs, but provides less than half the effort. 2-Substantial/Maximal Assistance-helper does MORE THAN HALF the effort. [place] lifts or holds trunk or limbs and provides more than half the effort. 5-Fciyezdfi-jqjlfy does ALL the effort. Patient does none of the effort to complete the activity. Or, the assistance of 2 or more helpers is required for the patient to complete the activity. If activity was not attempted, code reason: 7-Patient Refused. 9-Not Applicable-not attempted and the patient did not perform the activity before the current illness, exacerbation or injury. 10-Not Attempted due to Environmental Limitations-(lack of equipment, weather restraints, etc.). 88-Not Attempted due to Medical Conditions or Safety Concerns. Roll Left to Right (QC): 5 Sit to Lying (QC): 5 Sit to Stand (QC): 4 Weight Bearing Right Lower Extremity: Right Full Weight Bearing Left Lower Extremity: Left Full Weight Bearing Gait Training Does the Patient Walk?: Yes Distance: 150' Walk 10 feet (QC): 4 Walk 50 ft with 2 Turns(QC): 4 Walk 150 ft (QC): 4 Gait Assistive Device: FWW NBOS with lean to left with PT correct Assessment Patient is unaware of safety concerns and returned to bed with 4 rails up. Plan dismissal to [place] this week. PT Short Term Goals Short Term Goals Time Frame: Jun 27, 2019 Gait Distance Comment: 150-SBA Gait Assistive Device: FWW PT Detention Goals Detention Goals PT Detention Goals Time Frame: Jul 04, 2019 Sit to Lying (QC): 6 Lying-Sitting on Side/Bed(QC): 6 Sit to Stand (QC): 4 Roll Left to Right (QC): 6 Chair/Lhe-du-Rzeep Xfer(QC): 4 Car Transfer (QC): 3 Does the Patient Walk: Yes Distance: 150 Walk 10 feet (QC): 4 Walk 10ft-Uneven Surface(QC): 4 Walk 50ft with 2 Turns (QC): 4 Walk 150 ft (QC): 4 Gait Level of Assist: 5 Gait Assistive Device: FWW Does the Pt use WC or Scooter?: No # of Steps: 4 1 Step (curb) (QC): 3 4 Steps (QC): 3 Stairs Level Of Assist: 4 PT Plan Treatment/Plan Treatment Plan: Continue Plan of Care Treatment Plan: Bed Mobility, Education, Functional Activity Niharika, Functional Strength, Gait, Safety, Therapeutic Exercise, Transfers Treatment Duration: Jul 04, 2019 Frequency: 6 times per week Estimated Hrs Per Day: .25 hour per day Patient and/or Family Agrees t: Yes Time/GCodes Time In: 1500 Time Out: 1516 Total Billed Treatment Time: 16 Total Billed Treatment 1 visit GT 16 min LIZZIE EDGE PT Jun 22, 2019 15:26
[2019-06-22 15:51] VITALS: BP 128/69
--- NOTE | 2019-06-22 16:14 | NUR ---
RD ASSESSMENT PMHx: CA(prostate, mets to bone); PD; HTN; CAD; hypercholesterolemia; GERD; chronic constipation PT INTERACTION: Pt was awake and pleasant during nutrition assessment. Pt states current appetite is pretty good. Note pt consuminb 45% of meals x2, per chart review. Pt states following a regular diet at home, and currently has no issues with chewing/swallowing at this time. Pt states no recent issues with n/v/c/d at this time and last BM was 06/21. Pt states no recent wt changes. Note unable to determine recent wt hx, per chart review. ABNORMAL NUTRITION-RELATED LAB VALUES: Cl 108 (H); glu 109 (H); bili 1.2 (H); Ca 8.3 (L) Est. kcal needs: 3800-4956 kcal (25-30 kcal/kg) Est. Pro needs: 72-85 g Pro (1.2-1.4 g Pro/kg) PES STATEMENT: Inadequate oral intake (NI-2.1) related to loss of appetite as evidenced by 45% of meals consumed x3d INTERVENTION: Continue with current diet order of Regular diet. Add Ensure Enlive (vary) to meals BID. Provides 350 kcal and 20 g Pro/kg per serving. Encouraged pt to eat when able. MONITOR/EVALUATE: PO Intake; Plan of Care; Hydration Status; Weight Status; Lab Values Mason Ward, MS, RD, LD Ext. 133
[2019-06-22 19:48] VITALS: BP 111/60
[2019-06-22] MEDS: MELATONIN 3 MG TABLET PO PRN (21:04)
[2019-06-22] MEDS: SERTRALINE 100 MG (ZOLOFT) TAB PO SCH (21:04)
[2019-06-22] MEDS: ENOXAPARIN 40 MG/0.4 ML (LOVENOX) SYR SC SCH (21:05)
--- NOTE | 2019-06-22 23:19 | CONSULTATION REPORT ---
DATE OF SERVICE: 06/22/2019 The patient is admitted to room 427. REFERRING AND PRIMARY PHYSICIAN: Loren Dubon MD IMPRESSION: 1. An 88-year-old male admitted to the hospital following a fall at home. 2. Herpes zoster infection of left upper thoracic dermatome. 3. Metastatic prostate cancer to the bone, diagnosed in early 2016 and on treatment with androgen blockade as well as bone antiresorptive agents. 4. 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 5. Coronary artery disease with multiple stent placements in the past. 6. Parkinson's disease. RECOMMENDATIONS: 1. Continue antiviral agents for herpes zoster infection. May consider gabapentin if the pain is not improving. 2. Adjust medications for Parkinson's disease and continue physical therapy and strengthening. 3. With regards to prostate cancer, I will obtain previous treatment records from [facility] [place] in [place] as well as the [facility] in [place]. 4. We will obtain restaging whole body bone scan as well as a PSA level as a baseline. 5. The patient has evidence of significant osteonecrosis of the jaw with infection as there is drainage from the gums throughout with bleeding and halitosis. He has nonhealing areas in his gum. Consider obtaining oral surgery consult for recommendations and further management. The patient will need oral antibiotic with antibacterial mouth rinses and debridement if necessary. 6. We will follow the patient with you. BRIEF HISTORY: The patient is an 88-year-old male who was seen at [facility] with history of fall. He was noted to be hypotensive and also had evidence of acute herpes zoster involving the left upper chest wall. He was admitted to the hospital for further evaluation and management. He has 2-1/2 year history of metastatic prostate cancer to the bone and was on treatment with androgen deprivation therapy. His last dose of Lupron injection was in March. He has been receiving bone antiresorptive agents like either Zometa or Xgeva on an every 3 month basis. Medical oncology consultation was requested as it is difficult for the patient to travel to [place] to receive his treatment and to establish care closer to home. PAST MEDICAL HISTORY: Significant for Parkinson's disease, which has been stable on treatment until the past few months when he started having increased unsteadiness, dizziness and falls. He was seen in the emergency room on multiple occasions with falls and mild injuries. He has history of prostate cancer as mentioned above and treated with androgen deprivation therapy. The patient gives history of bleeding from his gums for the last several months and had a dental extraction which has not healed. He complained of drainage from gums and bleeding and wakes up in the morning with clotted blood around his mouth, complained of some discomfort in his gums. He has coronary artery disease and had a total of 7 stents placed because of angina but denied any myocardial infraction. SOCIAL HISTORY: The patient is and lives in [place] with his . 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 He has denied tobacco, alcohol or other recreational drug use. FAMILY HISTORY: Significant for coronary artery disease and hypercholesterolemia. History of colon cancer in the family. No other malignancies. No other major medical problems. PHYSICAL EXAMINATION: GENERAL: Today showed an elderly male, thin and weak appearing, awake and answering questions fairly, although incidentally, left periorbital ecchymosis from recent fall. VITAL SIGNS: Temperature was 36.2, pulse rate of 70, respirations 16, blood pressure 128/69 with oxygen saturation of 95% on room air. HEENT: Normocephalic with male pattern baldness. Dressing present on the left forehead, periorbital ecchymosis from recent trauma, fading ecchymosis on the right infraorbital region from previous trauma. Oral mucosa moist with significant halitosis, extremely poor dental hygiene with nonhealing ulcerations. NECK: Supple, with no JVD. No cervical, supraclavicular or axillary lymphadenopathy palpable. CHEST: Examination of the chest showed herpes zoster lesion involving the left upper thoracic dermatome. LUNGS: Fairly clear to auscultation without wheezes or rales. CARDIOVASCULAR: Regular in rate and rhythm without murmurs or gallops. ABDOMEN: Soft, nontender with no hepatosplenomegaly or other masses palpable. EXTREMITIES: Showed no edema. NEUROLOGIC: Grossly intact without focal motor deficits. Overall, motor strength was 4/5 bilaterally. LABORATORY DATA: CBC done today showed WBC 4.6, hemoglobin 11.1, MCV 99, platelet count 147,000 with neutrophil count 3.0 and lymphocyte count 0.8. Chemistry panel showed normal electrolytes. BUN was 12 and creatinine 0.84 with GFR more than 60 mL per minute. Total bilirubin was 1.2 with rest of the liver function studies within normal limits. Urinalysis was unremarkable. CT scan of the head and C-spine done at the emergency room showed atrophy of the brain with chronic microvascular ischemic disease, but no acute intracranial abnormality. Left frontal scalp hematoma. Moderate cervical spondylosis and degenerative disk disease without acute fracture or traumatic subluxation. Thank you for allowing me to participate in this patient's care. I will follow the patient with you and make appropriate recommendations. Job ID: [id number] DocumentID: [id number] Dictated Date: 06/22/2019 18:50:54 Animal Eviscerator Date: 06/22/2019 23:19:22 Dictated By: MARÍA ELENA WARD MD
[2019-06-23 00:20] VITALS: BP 158/80
[2019-06-23] MEDS: HALOPERIDOL 5 MG/ML (HALDOL) AMP IM PRN (03:55)
[2019-06-23 04:00] VITALS: BP 163/80
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
--- NOTE | 2019-06-23 04:37 | NUR ---
Pt more calm now and resting quietly.
[2019-06-23] MEDS: SINEMET 10/100 (CARBIDOPA/LEVADOPA) TAB PO SCH ×4 (05:20→20:25)
[2019-06-23 07:02] LABS: HEMOGLOBIN 10.4 G/DL (13.3-17.7); MEAN PLATELET VOLUME 8.9 FL (7.4-10.4); RED CELL DISTRIBUTION WIDTH 15.4 % (10.0-14.5); WHITE BLOOD COUNT 4.4 10^3/uL (4.3-11.0)
[2019-06-23 07:27] LABS: ALANINE AMINOTRANSFERASE 10 U/L (0-55); ALBUMIN 3.7 GM/DL (3.2-4.5); ALKALINE PHOSPHATASE 92 U/L (40-136); BILIRUBIN,TOTAL 0.9 MG/DL (0.1-1.0); BUN/CREATININE RATIO 17; CALCIUM 7.9 MG/DL (8.5-10.1); CARBON DIOXIDE 24 MMOL/L (21-32); CHLORIDE 110 MMOL/L (98-107); CREATININE SERUM 0.81 MG/DL (0.60-1.30); GFR ESTIMATED > 60; GLUCOSE 104 MG/DL (70-105); POTASSIUM 3.2 MMOL/L (3.6-5.0); SODIUM 146 MMOL/L (135-145); TOTAL PROTEIN 6.6 GM/DL (6.4-8.2)
[2019-06-23 08:00] VITALS: BP 166/77
--- NOTE | 2019-06-23 08:38 | Progress Note ---
Subjective Date Seen by a Provider: Jun 23, 2019 Time Seen by a Provider: 08:30 Subjective/Events-last exam PT HAD A ROUGH NIGHT LAST NIGHT DUE TO DELIRIUM WITH OWNING. STAFF REPORTS THAT HE HAD HIS GAIT BELT AND WAS SWINGING IT AT STAFF TRYING TO KEEP THEM AWAY FROM HIM. WHEN I QUESTIONED THE PATIENT - HE REPORTS THAT HE HAS TROUBLE REMEMBERING THAT HE IS IN THE HOSPITAL. HE FEELS LIKE HE IS IN AN "ENEMY CAMP" AND HE IS TRYING TO PROTECT HIMSELF FROM BEING HURT. HIS REPORTS THAT HE HAD NOT BEEN LIKE THIS AT HOME. HE DENIES CHEST PAIN, HE HAS SOME SHORTNESS OF BREATH WHEN ACTIVE WITH THERAPY. HE HAS EXTREME WEAKNESS. Review of Systems General: Fatigue, Malaise, Appetite (DECREASED) Pulmonary: No Dyspnea, No Cough Cardiovascular: No: Chest Pain Gastrointestinal: No: Nausea, Abdominal Pain Neurological: Weakness, Confusion Objective Exam Last Set of Vital Signs Vital Signs Date Time Temp Pulse Resp B/P (MAP) Pulse Ox O2 Delivery O2 Flow Rate FiO2 06/23/19 04:00 36.8 80 20 163/80 (107) 91 Room Air Capillary Refill : Less Than 3 Seconds I&O Intake and Output 06/23/19 00:00 Intake Total 1580 ml Output Total 850 ml Balance 730 ml Intake Oral 1580 ml Output Urine Total 850 ml # Voids 1 General: Alert, No Acute Distress, Other (ORIENTED TO PERSON AND PLACE) HEENT: Other (BRUISING LEFT FACE AROUND EYE AND UPPER CHEEK, AND RIGHT LATERAL EYE) Neck: Supple Lungs: Clear to Auscultation, Normal Air Movement Heart: Regular Rate Abdomen: Normal Bowel Sounds, Soft, No Tenderness Extremities: No Clubbing, No Cyanosis Skin: Other (BRUISING ABOVE) Neuro: Other (SLOW SPEECH/THOUGHT PROCESS, BUT NORMAL CONTENT) Psych/Mental Status: Other (FLAT AFFECT) Results Lab Laboratory Tests 06/23/19 05:47: White Blood Count 4.4, Red Blood Count 3.27L, Hemoglobin 10.4L, Hematocrit 32L, Mean Corpuscular Volume 98, Mean Corpuscular Hemoglobin 32, Mean Corpuscular Hemoglobin Concent 33, Red Cell Distribution Width 15.4H, Platelet Count 159, Mean Platelet Volume 8.9, Sodium Level 146H, Potassium Level 3.2L, Chloride Level 110H, Carbon Dioxide Level 24, Anion Gap 12, Blood Urea Nitrogen 14, Creatinine 0.81, Estimat Glomerular Filtration Rate > 60, BUN/Creatinine Ratio 17, Glucose Level 104, Calcium Level 7.9L, Corrected Calcium 8.1L, Total Bilirubin 0.9, Aspartate Amino Transf (AST/SGOT) 33, Alanine Aminotransferase (ALT/SGPT) 10, Alkaline Phosphatase 92, Total Protein 6.6, Albumin 3.7 Assessment/Plan Assessment/Plan Assess & Plan/Chief Complaint PROSTATE CANCER - METASTATIC TO BONE OSTEONECROSIS OF JAW FALLING EPISODES AUTONOMIC DYSFUNCTION WITH ORTHOSTATIC HYPOTENSION PARKINSON'S DISEASE DEPRESSION GENERALIZED MUSCLE WEAKNESS PROSTATE CANCER - METASTATIC TO BONE WITH PROGRESSION OF DISEASE DESPITE TREATMENT - CONSULT HAS BEEN PLACED TO DR. WARD - DEFER TREATMENT AND OTHER RECOMMENDATIONS TO HIM AT THIS TIME. OSTEONECROSIS OF JAW - DISCUSSED WITH DR. WARD AND DR. KHAN - PT STARTED ON IV ANTIBIOTICS - PANOREX ORDERED - WAITING ON RECOMMENDATIONS FROM DR. KHAN - WILL LOOK AT SWING BED FOR THE PATIENT WHILE ON IV ANTIBIOTICS. FALLING EPISODES DUE TO GENERALIZED MUSCLE WEAKNESS - CONTINUE WITH PHYSICAL THERAPY, OCCUPATIONAL THERAPY - WILL DISCUSS SENIOR CARE AGAIN TOMORROW AFTER DISCUSSION WITH DR. WARD. AUTONOMIC DYSFUNCTION WITH ORTHOSTATIC HYPOTENSION - PT ON FLUDROCORTISONE - MONITOR BLOOD PRESSURES PARKINSON'S DISEASE - SINEMET AND REQUIP RESTARTED ON ADMISSION - THERAPY FOR STRENGTHENING DEPRESSION - RESTARTED SSRI PT HAS OVERALL POOR PROGNOSIS - HOWEVER SINCE HE IS NOW GOING TO BE SEEN BY ONCOLOGY IN [place], I WILL WAIT ON HOSPICE CONSULTATION UNTIL HE HAS BEEN SEEN BY ONCOLOGY AND FURTHER RECOMMENDATIONS FOR TREATMENT HAVE BEEN MADE BY DR. WARD. UNFORTUNATELY I DO NOT HAVE VERY MANY RECORDS ON MR. BANERJEE HE IS A NEW PATIENT TO MY PRACTICE AND HE IS NOT A GOOD HISTORIAN. Clinical Quality Measures DVT/VTE Risk/Contraindication: Risk Factor Score Per Nursin RFS Level Per Nursing on Admit: 2=Moderate MARU CARABALLO MD Jun 23, 2019 08:38
[2019-06-23] MEDS ORDERED: PIPERACILLIN/TAZOBACTAM (BULK) 4.5 GM in NS (IVPB) 100 ML IV SCH (09:00)
[2019-06-23] MEDS: ASPIRIN 325 MG (5 GR) TABLET PO SCH (09:29)
[2019-06-23] MEDS: VALACYCLOVIR 500 MG TAB (VALTREX) PO SCH ×3 (09:29→20:15)
[2019-06-23] MEDS: FAMOTIDINE 20 MG (PEPCID) TABLET PO SCH ×2 (09:30→20:15)
[2019-06-23] MEDS: SENNA W/DOCUSATE (SENOKOT S) TABLET PO SCH ×2 (09:30→20:15)
[2019-06-23] MEDS: LORATADINE (CLARITIN) 10 MG TAB PO SCH (09:30)
[2019-06-23] MEDS: DOCUSATE SODIUM 100 MG (COLACE) CAP PO SCH ×2 (09:30→20:16)
[2019-06-23] MEDS: FLUDROCORTISONE 0.1 MG (FLORINEF) TAB PO SCH ×3 (09:30→16:33)
[2019-06-23] MEDS: rOPINIRole 1 MG (REQUIP) TABLET PO SCH ×3 (09:30→20:16)
[2019-06-23] MEDS: FLUTICASONE NASAL SPRAY (FLONASE) 16 GM BTL NS SCH ×2 (09:30→20:17)
[2019-06-23] MEDS: POTASSIUM CL 10MEQ/50ML IVPB 50 ML IV SCH ×2 (09:34→09:39)
[2019-06-23] MEDS: HALOPERIDOL 5 MG/ML (HALDOL) AMP IM/IV SCH ×2 (09:37→20:15)
--- NOTE | 2019-06-23 10:05 | NUR ---
prior to a.m. medications b/p was 166/77 pulse was 79
--- NOTE | 2019-06-23 11:11 | NUR ---
CM/SS ML-P has accepted placement of the patient when he is able to discharge.
--- NOTE | 2019-06-23 11:54 | Occupational Ther Daily Note ---
OT Current Status-Daily Note Subjective Pt alert, lying in bed. Visitor present in room. Pt agrees to therapy. No c/o pain at this time. Mental Status/Objective Patient Orientation: Person, Place, Time, Situation Attachments: IV ADL-Treatment Therapy Code Descriptions/Definitions Functional [place] Measure: 0=Not Assessed/NA 4=Minimal Assistance 1=Total Assistance 5=Supervision or Setup 2=Maximal Assistance 6=Modified [place] 3=Moderate Assistance 7=Complete IndependenceSCALE: Activities may be completed with or without assistive devices. 8-Dytivygamy-wiiwlpx completes the activity by him/herself with no assistance from a helper. 5-Set-up or Clean-up Assistance-helper sets up or cleans up; patient completes activity. [place] assists only prior to or following the activity. 4-Supervision or Touching Assistance-helper provides verbal cues and/or touching/steadying and/or contact guard assistance as patient completes activ ity. Assistance may be provided throughout the activity or intermittently. 3-Partial/Moderate Assistance-helper does LESS THAN HALF the effort. [place] lifts, holds or supports trunk or limbs, but provides less than half the effort. 2-Substantial/Maximal Assistance-helper does MORE THAN HALF the effort. [place] lifts or holds trunk or limbs and provides more than half the effort. 4-Cauhkpqnj-lbrwid does ALL the effort. Patient does none of the effort to complete the activity. Or, the assistance of 2 or more helpers is required for the patient to complete the activity. If activity was not attempted, code reason: 7-Patient Refused. 9-Not Applicable-not attempted and the patient did not perform the activity before the current illness, exacerbation or injury. 10-Not Attempted due to Environmental Limitations-(lack of equipment, weather restraints, etc.). 88-Not Attempted due to Medical Conditions or Safety Concerns. Other Treatment Min A supine to sitting, SBA for sitting to supine. Pt demonstrates decreased AROM with L shldr, ~75* shldr flexion, full ROM with R UE. Pt completed 4 UE exercises against gravity, 2 sets 10 reps, required recovery break between each set. Pt then was able to complete 4 seated push-ups to scoot self toward HOB while sitting EOB. After therapy, pt lying in bed with call light/phone in reach. Visitor present in room. OT Short Term Goals Short Term Goals Time Frame: Jul 10, 2019 Bathing(FIM): 3 Upper Body Dressing(FIM): 4 Lower Body Dressing(FIM): 4 Toileting(FIM): 3 1=Demonstrate adherence to instructed precautions during ADL tasks. 2=Patient will verbalize/demonstrate understanding of assistive devices/modifications for ADL. 3=Patient will improve strength/tolerance for activity to enable patient to perform ADL's. OT Cooker Mechanic Goals Cooker Mechanic Goals Time Frame: Jul 17, 2019 Eating (QC): 6 Oral Hygiene (QC): 5 Shower/Bathe Self (QC): 4 Upper Body Dressing (QC): 5 Lower Body Dressing (QC): 5 On/Off Footwear (QC): 5 Toileting Hygiene (QC): 5 Toilet/Commode Transfer (QC): 5 Additional Goals: 1-Demonstrate ADL Tasks, 2-Verbalize Understanding, 3- ImproveStrength/Niharika 1=Demonstrate adherence to instructed precautions during ADL tasks. 2=Patient will verbalize/demonstrate understanding of assistive devices/modifications for ADL. 3=Patient will improve strength/tolerance for activity to enable patient to perform ADL's. OT Education/Plan Problem List/Assessment Assessment: Decreased Activ Tolerance, Decreased UE Strength, Restricted Funct UE ROM Discharge Recommendations Plan/Recommendations: Continue POC Treatment Plan/Plan of Care Patient would benefit from OT for education, treatment and training to promote independence in ADL's, mobility, safety and/or upper extremity function for ADL's. Plan of Care: ADL Retraining, Caregiver Training, Functional Mobility, UE Funct Exercise/Act Treatment Duration: Jul 10, 2019 Frequency: 5 times per week Estimated Hrs Per Day: .25 hour per day Agreement: Yes Rehab Potential: Fair Time/GCodes Start Time: 11:30 Stop Time: 11:46 Total Time Billed (hr/min): 16 Billed Treatment Time 1 visit-EX 1 (16 min) AB WEST Jun 23, 2019 11:54
[2019-06-23 12:00] VITALS: BP 104/64
--- NOTE | 2019-06-23 12:20 | Physical Therapy Daily Note ---
PT Daily Note-Current Subjective Patient is in bed with friend present and agrees to PT at this time. Patient appears alert and ready to exercise. Pain Numeric Pain Scale: 0-No Pain Location: No Pain Reported Mental Status Patient Orientation: Normal For Age Attachments: IV Transfers SCALE: Activities may be completed with or without assistive devices. 2-Ejixauqvvq-ypmzzmi completes the activity by him/herself with no assistance from a helper. 5-Set-up or Clean-up Assistance-helper sets up or cleans up; patient completes activity. [place] assists only prior to or following the activity. 4-Supervision or Touching Assistance-helper provides verbal cues and/or touching/steadying and/or contact guard assistance as patient completes activity. Assistance may be provided throughout the activity or intermittently. 3-Partial/Moderate Assistance-helper does LESS THAN HALF the effort. [place] lifts, holds or supports trunk or limbs, but provides less than half the effort. 2-Substantial/Maximal Assistance-helper does MORE THAN HALF the effort. [place] lifts or holds trunk or limbs and provides more than half the effort. 7-Cbscidvtj-tyxpvm does ALL the effort. Patient does none of the effort to c omplete the activity. Or, the assistance of 2 or more helpers is required for the patient to complete the activity. If activity was not attempted, code reason: 7-Patient Refused. 9-Not Applicable-not attempted and the patient did not perform the activity before the current illness, exacerbation or injury. 10-Not Attempted due to Environmental Limitations-(lack of equipment, weather restraints, etc.). 88-Not Attempted due to Medical Conditions or Safety Concerns. Roll Left to Right (QC): 5 Sit to Lying (QC): 5 Sit to Stand (QC): 4 Weight Bearing Right Lower Extremity: Right Full Weight Bearing Left Lower Extremity: Left Full Weight Bearing Gait Training Does the Patient Walk?: Yes Distance: 50' Walk 10 feet (QC): 4 Walk 50 ft with 2 Turns(QC): 4 Gait Assistive Device: FWW Step through pattern, difficulty staying within walker, drifting/running into the wall. Exercises Seated Therapy Exercises: Ankle pumps, Sit to stand, Long arc quads, Hip flexion, Hip abd/add Seated Reps: 15 Assessment Patient tolerated seated exercises well without difficulty or cues. Patient was able to demonstrate good bed mobility and standing from bed but had difficulty with maintaining gait in a straight line and remaining within the walker. Patient had difficulty with sitting from standing and keeping walker safely with body. Returned patient to bed with HOB elevated. PT Short Term Goals Short Term Goals Time Frame: Jun 27, 2019 Gait Distance Comment: 150-SBA Gait Assistive Device: FWW PT Ceramic Plater Goals Ceramic Plater Goals PT Group Home Goals Time Frame: Jul 04, 2019 Sit to Lying (QC): 6 Lying-Sitting on Side/Bed(QC): 6 Sit to Stand (QC): 4 Roll Left to Right (QC): 6 Chair/Uwb-jz-Qfjvt Xfer(QC): 4 Car Transfer (QC): 3 Does the Patient Walk: Yes Distance: 150 Walk 10 feet (QC): 4 Walk 10ft-Uneven Surface(QC): 4 Walk 50ft with 2 Turns (QC): 4 Walk 150 ft (QC): 4 Gait Level of Assist: 5 Gait Assistive Device: FWW Does the Pt use WC or Scooter?: No # of Steps: 4 1 Step (curb) (QC): 3 4 Steps (QC): 3 Stairs Level Of Assist: 4 PT Plan Treatment/Plan Treatment Plan: Continue Plan of Care Treatment Plan: Bed Mobility, Education, Functional Activity Niharika, Functional Strength, Gait, Safety, Therapeutic Exercise, Transfers Treatment Duration: Jul 04, 2019 Frequency: 6 times per week Estimated Hrs Per Day: .25 hour per day Patient and/or Family Agrees t: Yes Time/GCodes Time In: 1148 Time Out: 1203 Total Billed Treatment Time: 15 Total Billed Treatment 1 visit FA 15min LIZZIE EDGE PT Jun 23, 2019 12:20
--- NOTE | 2019-06-23 12:45 | NUR ---
Patient to bone scan at this time via w/c family remains in room at beside.
--- NOTE | 2019-06-23 13:21 | Diagnostic Imaging Report ---
INDICATION: Jaw pain. COMPARISON: None available. FINDINGS AND IMPRESSION: The examination was attempted although the patient was uncooperative for the examination. This results in a nondiagnostic exam to assess the mandible. A CT Face may provide better assessment if deemed clinically indicated. Dictated by: Dictated on workstation # [id number]
--- NOTE | 2019-06-23 13:32 | NUR ---
PATIENT BACK TO FLOOR AT THIS TIME FROM BONE SCAN.
--- NOTE | 2019-06-23 14:13 | Diagnostic Imaging Report ---
INDICATION: Metastatic prostate carcinoma, restaging. TECHNIQUE: The patient was administered 27.1 mCi of technetium 99m MDP intravenously and whole-body imaging was performed after a three-hour delay. COMPARISON: Correlation is made with the prior whole body bone scan from 03/24/2019. FINDINGS: Intense uptake in an upper thoracic vertebral body (approximately T6) is again noted. There is worsening activity now seen more inferiorly in the lower thoracic spine. Numerous foci in the lumbar spine are again seen. There is bilateral rib uptake which appears to be somewhat increased, particularly on the left, since the prior study. Lumbosacral uptake in the midline on the posterior view has increased since the prior study. Mild uptake in the region of the left greater trochanter is similar to the prior exam. The intense uptake in the region of the sternoclavicular junction on the right persists. There is a tiny focus of uptake in the region of the midsternal body. Mild uptake is now seen over the left upper chest, perhaps in the region of the left 1st rib near the costochondral junction. IMPRESSION: There has been an overall increase in abnormal uptake when compared with the prior study from 03/24/2019, consistent with worsening osseous metastatic disease. Dictated by: Dictated on workstation # [id number]
[2019-06-23] MEDS: PIPERACILLIN/TAZOBACTAM (BULK) 4.5 GM in NS (IVPB) 100 ML IV SCH ×2 (15:19→23:24)
[2019-06-23 16:00] VITALS: BP 152/74
--- NOTE | 2019-06-23 17:26 | Progress Note ---
Standard Progress Note Progress Notes/Assess & Plan Date Seen by a Provider: Jun 23, 2019 Time Seen by a Provider: 17:21 Progress/Assessment & Plan 88-year-old male with history of metastatic prostate cancer who was on treatment with androgen blockade as well as bone remodeling agents, admitted to the hospital with increasing weakness and falls. Also has history of Parkinson's disease. 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 Patient is more oriented today and feels better. Nursing staff gives history of delirium last night and early this morning. He is receiving scheduled haloperidol. Completed whole body bone scan with evidence of widespread bony metastatic disease which has progressed compared to the previous scans. PSA level is pending from today. Awaiting previous treatment records from [facility] in [place]. Patient unable to complete the Panore[facility] x-ray this morning because of the delirium and inability to follow instructions. Awaiting evaluation by Dr. Ramires. Continue antibiotic therapy. Will follow patient with you. MARÍA ELENA WARD Jun 23, 2019 17:26
[2019-06-23 20:00] VITALS: BP 133/65
[2019-06-23] MEDS: MELATONIN 3 MG TABLET PO PRN (20:15)
[2019-06-23] MEDS: SERTRALINE 100 MG (ZOLOFT) TAB PO SCH (20:15)
[2019-06-23] MEDS: ENOXAPARIN 40 MG/0.4 ML (LOVENOX) SYR SC SCH (20:16)
[2019-06-24] VITALS: BP 162/72
[2019-06-24 05:41] LABS: MEAN PLATELET VOLUME 8.9 FL (7.4-10.4); WHITE BLOOD COUNT 5.4 10^3/uL (4.3-11.0)
[2019-06-24 05:56] LABS: ALANINE AMINOTRANSFERASE 9 U/L (0-55); ALBUMIN 3.7 GM/DL (3.2-4.5); ALKALINE PHOSPHATASE 105 U/L (40-136); BILIRUBIN,TOTAL 0.9 MG/DL (0.1-1.0); BUN/CREATININE RATIO 14; CALCIUM 7.9 MG/DL (8.5-10.1); CARBON DIOXIDE 24 MMOL/L (21-32); CHLORIDE 109 MMOL/L (98-107); CREATININE SERUM 0.91 MG/DL (0.60-1.30); GFR ESTIMATED > 60; GLUCOSE 102 MG/DL (70-105); POTASSIUM 3.3 MMOL/L (3.6-5.0); SODIUM 145 MMOL/L (135-145); TOTAL PROTEIN 6.4 GM/DL (6.4-8.2)
[2019-06-24] MEDS: PIPERACILLIN/TAZOBACTAM (BULK) 4.5 GM in NS (IVPB) 100 ML IV SCH ×3 (06:28→23:25)
[2019-06-24] MEDS: SINEMET 10/100 (CARBIDOPA/LEVADOPA) TAB PO SCH ×4 (06:28→20:46)
[2019-06-24 08:32] VITALS: BP 127/60
--- NOTE | 2019-06-24 08:50 | Progress Note ---
Subjective Date Seen by a Provider: Jun 24, 2019 Time Seen by a Provider: 08:30 Subjective/Events-last exam PT IS ALERT AND TALKATIVE THIS MORNING. HE REPORTS THAT HE IS FEELING BETTER TODAY. HE STATES THAT HE HAS SOME NEW UPPER RIGHT BACK PAIN. HE STATES THAT HE DOES NOT HAVE ANY CHEST PAIN, HE HAS INTERMITTENT SHORTNESS OF BREATH AFTER SNEEZING FITS. HE STATES THAT HIS APPETITE HAS IMPROVED A LITTLE BIT FROM ADMISSION. HIS STATES THAT SHE WAS TOLD THAT HE HAD A GOOD NIGHT LAST NIGHT COMPARED TO THE PREVIOUS 2-3 DAYS. NURSING STAFF STATES THAT HE IS TO GO DOWN FOR ANOTHER IMAGING STUDY AND DR. KHAN WILL COME BACK LATER TODAY TO RE-EVALUATE MR. BANERJEE AND TALK TO HIS ABOUT HIS FINDINGS. Review of Systems General: Fatigue HEENT: No Head Aches Pulmonary: No Dyspnea; Cough Cardiovascular: No: Chest Pain, Palpitations Gastrointestinal: No: Nausea, Abdominal Pain Genitourinary: No Dysuria Musculoskeletal: back pain, leg pain Neurological: Weakness, Confusion Objective Exam Last Set of Vital Signs Vital Signs Date Time Temp Pulse Resp B/P (MAP) Pulse Ox O2 Delivery O2 Flow Rate FiO2 06/24/19 03:23 37.1 06/24/19 00:00 76 18 162/72 (102) 93 Room Air Capillary Refill : Less Than 3 Seconds I&O Intake and Output 06/24/19 00:00 Intake Total 2570 ml Output Total 100 ml Balance 2470 ml Intake Oral 2110 ml IV Total 460 ml Output Urine Total 100 ml # Voids 8 # Bowel Movements 1 General: Alert, Oriented X3, Cooperative, No Acute Distress HEENT: Atraumatic, PERRLA Neck: Supple Lungs: Clear to Auscultation Heart: Regular Rate Abdomen: Normal Bowel Sounds, Soft, No Tenderness Extremities: No Clubbing, No Cyanosis Skin: No Breakdown, Other (BRUISING LEFT EYE AND UNDER/LATERAL RIGHT EYE) Psych/Mental Status: Mental Status NL, Mood NL Results Lab Laboratory Tests 06/24/19 05:10: White Blood Count 5.4, Red Blood Count 3.16L, Hemoglobin 10.0L, Hematocrit 31L, Mean Corpuscular Volume 98, Mean Corpuscular Hemoglobin 32, Mean Corpuscular Hemoglobin Concent 32, Red Cell Distribution Width 15.0H, Platelet Count 142, Mean Platelet Volume 8.9, Sodium Level 145, Potassium Level 3.3L, Chloride Level 109H, Carbon Dioxide Level 24, Anion Gap 12, Blood Urea Nitrogen 13, Creatinine 0.91, Estimat Glomerular Filtration Rate > 60, BUN/Creatinine Ratio 14, Glucose Level 102, Calcium Level 7.9L, Corrected Calcium 8.1L, Total Bilirubin 0.9, Aspartate Amino Transf (AST/SGOT) 28, Alanine Aminotransferase (ALT/SGPT) 9, Alkaline Phosphatase 105, Total Protein 6.4, Albumin 3.7 Assessment/Plan Assessment/Plan Assess & Plan/Chief Complaint PROSTATE CANCER - 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 WARD - DEFER TREATMENT AND OTHER RECOMMENDATIONS TO HIM AT THIS TIME. OSTEONECROSIS OF JAW - DISCUSSED WITH DR. WARD AND DR. KHAN - PT STARTED ON IV ANTIBIOTICS - PANOREX ORDERED - UNABLE TO OBTAIN DUE TO PT UNABLE TO FOLLOW COMMANDS DUE TO CONFUSION/COMBATIVENESS - WAITING ON RECOMMENDATIONS FROM DR. KHAN - WILL LOOK AT SWING BED FOR THE PATIENT WHILE ON IV ANTIBIOTICS. SHINGLES - ON ACYCLOVIR FALLING EPISODES DUE TO GENERALIZED MUSCLE WEAKNESS - CONTINUE WITH PHYSICAL THERAPY, OCCUPATIONAL THERAPY - PT HAS BEEN ACCEPTED TO [facility], THIS WILL BE THE ULTIMATE PLAN ON DISCHARGE AFTER WE DETERMINE IF HE NEEDS TO STAY IN THE HOSPITAL FOR IV ANTIBIOTICS VERSUS ORAL ANTIBIOTICS AUTONOMIC DYSFUNCTION WITH ORTHOSTATIC HYPOTENSION - PT ON FLUDROCORTISONE - - INTERMITTENTLY ELEVATED BLOOD PRESSURE, DECREASE DOSE TO BID AT THIS TIME AND MONITOR BLOOD PRESSURES PARKINSON'S DISEASE - SINEMET AND REQUIP RESTARTED ON ADMISSION - THERAPY FOR STRENGTHENING DEPRESSION - RESTARTED SSRI PT HAS OVERALL POOR PROGNOSIS - HOWEVER SINCE HE IS NOW GOING TO BE SEEN BY ONCOLOGY IN [place], I WILL WAIT ON HOSPICE CONSULTATION UNTIL HE HAS BEEN SEEN BY ONCOLOGY AND FURTHER RECOMMENDATIONS FOR TREATMENT HAVE BEEN MADE BY DR. WARD. UNFORTUNATELY I DO NOT HAVE VERY MANY RECORDS ON MR. BANERJEE HE IS A NEW PATIENT TO MY PRACTICE AND HE IS NOT A GOOD HISTORIAN. Clinical Quality Measures DVT/VTE Risk/Contraindication: Risk Factor Score Per Nursin RFS Level Per Nursing on Admit: 2=Moderate MARU CARABALLO MD Jun 24, 2019 08:50
[2019-06-24] MEDS ORDERED: KCL 10 MEQ TAB (MICRO K) PO NR (08:56)
[2019-06-24] MEDS: HALOPERIDOL 5 MG/ML (HALDOL) AMP IM/IV SCH ×2 (09:10→20:48)
[2019-06-24] MEDS: ASPIRIN 325 MG (5 GR) TABLET PO SCH (09:11)
[2019-06-24] MEDS: FLUDROCORTISONE 0.1 MG (FLORINEF) TAB PO SCH ×2 (09:11→16:34)
[2019-06-24] MEDS: rOPINIRole 1 MG (REQUIP) TABLET PO SCH ×3 (09:11→20:47)
[2019-06-24] MEDS: DOCUSATE SODIUM 100 MG (COLACE) CAP PO SCH ×2 (09:11→20:50)
[2019-06-24] MEDS: VALACYCLOVIR 500 MG TAB (VALTREX) PO SCH ×3 (09:12→20:47)
[2019-06-24] MEDS: LORATADINE (CLARITIN) 10 MG TAB PO SCH (09:12)
[2019-06-24] MEDS: SENNA W/DOCUSATE (SENOKOT S) TABLET PO SCH ×2 (09:12→20:50)
[2019-06-24] MEDS: FAMOTIDINE 20 MG (PEPCID) TABLET PO SCH (09:12)
[2019-06-24] MEDS: FLUTICASONE NASAL SPRAY (FLONASE) 16 GM BTL NS SCH ×2 (09:18→20:48)
--- NOTE | 2019-06-24 10:21 | Physical Therapy Daily Note ---
PT Daily Note-Current Subjective Pt in bed pre-tx with nurse aide in room finished bed bath. Pt agrees to PT this morning and reports no pain at this time. Appearance Pt in recliner with feet elevated post-tx with chair alarm set. Pt with nurse call, room phone, and tray table in reach and all needs met at this time. Mental Status Patient Orientation: Person, Place, Situation Attachments: IV Transfers SCALE: Activities may be completed with or without assistive devices. 9-Bdhzrogher-ymdhinu completes the activity by him/herself with no assistance from a helper. 5-Set-up or Clean-up Assistance-helper sets up or cleans up; patient completes activity. [place] assists only prior to or following the activity. 4-Supervision or Touching Assistance-helper provides verbal cues and/or touching/steadying and/or contact guard assistance as patient completes activity. Assistance may be provided throughout the activity or intermittently. 3-Partial/Moderate Assistance-helper does LESS THAN HALF the effort. [place] lifts, holds or supports trunk or limbs, but provides less than half the effort. 2-Substantial/Maximal Assistance-helper does MORE THAN HALF the effort. [place] lifts or holds trunk or limbs and provides more than half the effort. 5-Zyhsiefpe-whnlka does ALL the effort. Patient does none of the effort to complete the activity. Or, the assistance of 2 or more helpers is required for the patient to complete the activity. If activity was not attempted, code reason: 7-Patient Refused. 9-Not Applicable-not attempted and the patient did not perform the activity before the current illness, exacerbation or injury. 10-Not Attempted due to Environmental Limitations-(lack of equipment, weather restraints, etc.). 88-Not Attempted due to Medical Conditions or Safety Concerns. Roll Left to Right (QC): 4 (SBA) Sit to Stand (QC): 4 (SGA) Pt required [place] for supine to sit this date. Weight Bearing Right Lower Extremity: Right Full Weight Bearing Left Lower Extremity: Left Full Weight Bearing Gait Training Does the Patient Walk?: Yes Distance: 40' Walk 10 feet (QC): 4 (SBA) Gait Assistive Device: FWW Pt ambulates with slight NBOS with occasional step crossing over to midline but pt had no LOB requiring assist. Wheelchair Training Does the Pt Use a Wheelchair?: No Exercises Supine Ex: Ankle pumps Supine Reps: 20 Seated Therapy Exercises: Ankle pumps, Long arc quads, Hip flexion Seated Reps: 20 Treatments Pt performed LE strengthening, bed mobility, skilled ambulation training and education this date. Assessment Current Status: Fair Progress Pt richard ambulation in his room with SOB rated 6/10 limiting distance. Pt SOB recovered within 30 seconds of being seated in recliner. PT Short Term Goals Short Term Goals Time Frame: Jun 27, 2019 Gait Distance Comment: 150-SBA Gait Assistive Device: FWW PT Prison Goals Prison Goals PT Newspaper Clipper Goals Time Frame: Jul 04, 2019 Sit to Lying (QC): 6 Lying-Sitting on Side/Bed(QC): 6 Sit to Stand (QC): 4 Roll Left to Right (QC): 6 Chair/Boi-an-Gzqvc Xfer(QC): 4 Car Transfer (QC): 3 Does the Patient Walk: Yes Distance: 150 Walk 10 feet (QC): 4 Walk 10ft-Uneven Surface(QC): 4 Walk 50ft with 2 Turns (QC): 4 Walk 150 ft (QC): 4 Gait Level of Assist: 5 Gait Assistive Device: FWW Does the Pt use WC or Scooter?: No # of Steps: 4 1 Step (curb) (QC): 3 4 Steps (QC): 3 Stairs Level Of Assist: 4 PT Plan Problem List Problem List: Activity Tolerance, Functional Strength, Safety, Balance, Gait, Transfer, Bed Mobility Treatment/Plan Treatment Plan: Continue Plan of Care Treatment Plan: Bed Mobility, Education, Functional Activity Niharika, Functional Strength, Gait, Safety, Therapeutic Exercise, Transfers Treatment Duration: Jul 04, 2019 Frequency: 6 times per week Estimated Hrs Per Day: .25 hour per day Patient and/or Family Agrees t: Yes Safety Risks/Education Patient Education: Gait Training, Transfer Techniques, Correct Positioning, Safety Issues Teaching Recipient: Patient Teaching Methods: Demonstration, Discussion Response to Teaching: Verbalize Understanding, Return Demonstration, Reinforcement Needed Time/GCodes Time In: 957 Time Out: 1013 Total Billed Treatment Time: 16 Total Billed Treatment 1 visit FA Trace XIMENASIRIBARTOLO PT Jun 24, 2019 10:21
--- NOTE | 2019-06-24 12:56 | Occupational Ther Daily Note ---
OT Current Status-Daily Note Subjective No pain reported. Appearance Pt. up in chair. Agrees to work with OT. Mental Status/Objective Patient Orientation: Person, Place Attachments: IV ADL-Treatment Therapy Code Descriptions/Definitions Functional [place] Measure: 0=Not Assessed/NA 4=Minimal Assistance 1=Total Assistance 5=Supervision or Setup 2=Maximal Assistance 6=Modified [place] 3=Moderate Assistance 7=Complete IndependenceSCALE: Activities may be completed with or without assistive devices. 7-Lgadcxaajw-jpejbpz completes the activity by him/herself with no assistance from a helper. 5-Set-up or Clean-up Assistance-helper sets up or cleans up; patient completes activity. [place] assists only prior to or following the activity. 4-Supervision or Touching Assistance-helper provides verbal cues and/or touching/steadying and/or contact guard assistance as patient completes activity. Assistance may be provided throughout the activity or intermittently. 3-Partial/Moderate Assistance-helper does LESS THAN HALF the effort. [place] lifts, holds or supports trunk or limbs, but provides less than half the effort. 2-Substantial/Maximal Assistance-helper does MORE THAN HALF the effort. [place] lifts or holds trunk or limbs and provides more than half the effort. 2-Fttyummpj-ipbjbm does ALL the effort. Patient does none of the effort to complete the activity. Or, the assistance of 2 or more helpers is required for the patient to complete the activity. If activity was not attempted, code reason: 7-Patient Refused. 9-Not Applicable-not attempted and the patient did not perform the activity before the current illness, exacerbation or injury. 10-Not Attempted due to Environmental Limitations-(lack of equipment, weather restraints, etc.). 88-Not Attempted due to Medical Conditions or Safety Concerns. Lower Body Dressing (QC): 3 (SBA to doff/don slipper socks while seated. Min assist in stance to doff pants over hips in stance.) Toileting Hygiene (QC): 3 (Min/mod assist in stance for thorough cleansing.) Toilet Transfer (QC): 3 Other Treatment Pt. able to doff/don slipper socks seated. Stood with min assist from chair and ambulated into bathroom. Pt. transferred to toilet and urinated. After toile ting, pt. ambulated to sink with min assist and washed hands. Ambulated back to room and transferred to chair. Pt. verbalized that he feels that he needs to have a BM. Pt. stood again and ambulated to toilet with min assist. Pt. had BM and attempted to cleanse self in stance with min assist for balance. Pt. unable to cleanse self thoroughly and required assist for this. Ambulated back to chair and all needs met. Education OT Patient Education: Correct positioning, Modified ADL techniques, Progress toward Goal/Update tx plan, Purpose of tx/functional activities, Reviewed precautions, Rehab process, Transfer techniques Teaching Recipient: Patient Teaching Methods: Demonstration, Discussion Response to Teaching: Verbalize Understanding, Return Demonstration OT Short Term Goals Short Term Goals Time Frame: Jul 10, 2019 Bathing(FIM): 3 Upper Body Dressing(FIM): 4 Lower Body Dressing(FIM): 4 Toileting(FIM): 3 1=Demonstrate adherence to instructed precautions during ADL tasks. 2=Patient will verbalize/demonstrate understanding of assistive devices/modifications for ADL. 3=Patient will improve strength/tolerance for activity to enable patient to perform ADL's. OT Paring Machine Operator Goals Paring Machine Operator Goals Time Frame: Jul 17, 2019 Eating (QC): 6 Oral Hygiene (QC): 5 Shower/Bathe Self (QC): 4 Upper Body Dressing (QC): 5 Lower Body Dressing (QC): 5 On/Off Footwear (QC): 5 Toileting Hygiene (QC): 5 Toilet/Commode Transfer (QC): 5 Additional Goals: 1-Demonstrate ADL Tasks, 2-Verbalize Understanding, 3- ImproveStrength/Niharika 1=Demonstrate adherence to instructed precautions during ADL tasks. 2=Patient will verbalize/demonstrate understanding of assistive devices/modifications for ADL. 3=Patient will improve strength/tolerance for activity to enable patient to perform ADL's. OT Education/Plan Problem List/Assessment Assessment: Decreased Activ Tolerance, Decreased UE Strength, Dependent Transfers, Impaired Funct Balance, Impaired I ADL's, Impaired Self-Care Skills Discharge Recommendations Plan/Recommendations: Continue POC Therapy Discharge Recommendati: Post Acute OT Treatment Plan/Plan of Care Treatment,Training & Education: Yes Patient would benefit from OT for education, treatment and training to promote independence in ADL's, mobility, safety and/or upper extremity function for ADL's. Plan of Care: ADL Retraining, Caregiver Training, Functional Mobility, UE Funct Exercise/Act Treatment Duration: Jul 10, 2019 Frequency: 5 times per week Estimated Hrs Per Day: .25 hour per day Agreement: Yes Rehab Potential: Fair Time/GCodes Start Time: 10:35 Stop Time: 11:00 Total Time Billed (hr/min): 25 Billed Treatment Time 1, ADL x 2 SOPHIA ROYAL OT Jun 24, 2019 12:56
--- NOTE | 2019-06-24 13:44 | Progress Note ---
Standard Progress Note Progress Notes/Assess & Plan Date Seen by a Provider: Jun 24, 2019 Time Seen by a Provider: 13:41 Progress/Assessment & Plan 88-year-old male with history of metastatic prostate cancer who was on treatment with androgen blockade as well as bone remodeling agents, admitted to the hospital with increasing weakness and falls. Also has history of Parkinson's disease. 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 Patient is more oriented today and feels better. Slept well last night. Starting to work with physical therapy and ambulating short distances. PSA level was 0.38. Still awaiting previous treatment records from [facility] in [place]. Awaiting recommendations by Dr. Ramires. Continue antibiotic therapy. Will follow patient with you. MARÍA ELENA WARD Jun 24, 2019 13:44
[2019-06-24 16:00] VITALS: BP 154/77
[2019-06-24] MEDS: SERTRALINE 100 MG (ZOLOFT) TAB PO SCH (20:47)
[2019-06-24] MEDS: MELATONIN 3 MG TABLET PO PRN (20:47)
[2019-06-24] MEDS: ENOXAPARIN 40 MG/0.4 ML (LOVENOX) SYR SC SCH (20:48)
[2019-06-25 00:29] VITALS: BP 152/75
[2019-06-25] MEDS: SINEMET 10/100 (CARBIDOPA/LEVADOPA) TAB PO SCH ×3 (06:15→12:14)
[2019-06-25 06:30] VITALS: BP 155/64
[2019-06-25] MEDS: PIPERACILLIN/TAZOBACTAM (BULK) 4.5 GM in NS (IVPB) 100 ML IV SCH (06:33)
[2019-06-25 06:42] LABS: RED CELL DISTRIBUTION WIDTH 15.5 % (10.0-14.5); WHITE BLOOD COUNT 4.7 10^3/uL (4.3-11.0)
[2019-06-25 07:00] LABS: ALANINE AMINOTRANSFERASE < 6 U/L (0-55); ALBUMIN 3.6 GM/DL (3.2-4.5); ALKALINE PHOSPHATASE 84 U/L (40-136); BUN/CREATININE RATIO 13; CALCIUM 7.8 MG/DL (8.5-10.1); CARBON DIOXIDE 23 MMOL/L (21-32); CHLORIDE 110 MMOL/L (98-107); CREATININE SERUM 0.88 MG/DL (0.60-1.30); GFR ESTIMATED > 60; GLUCOSE 96 MG/DL (70-105); POTASSIUM 2.9 MMOL/L (3.6-5.0); SODIUM 146 MMOL/L (135-145); TOTAL PROTEIN 6.6 GM/DL (6.4-8.2)
--- NOTE | 2019-06-25 07:15 | NUR ---
Dr. Dubon notified of pt being lethargic at this time. Vital signs stable, but little reaction to stimuli. New order rec for CT head without contrast. MARIN Shrestha to assume care of patient at this time. Addendum: 06/25/19 at 0723 by JOYCE TANNER RN Pt up several times throughout the night to use bathroom. Last time patient attempted to get out of bed by setting off bed exit alarm was approx. 0400.
[2019-06-25 08:30] VITALS: BP 105/64
--- NOTE | 2019-06-25 08:53 | NUR ---
Swing Bed Note: Qualifies for swing bed for continued need of IV abx (Osteonecrosis of Jaw) with continued need of Physical et Occupational therapies for strengthening. After completion of medical course anticipate that the patient will transfer to [facility] for continued skilled therapies. Thank you for this referral! Addendum: 06/25/19 at 0931 by JETT JOSEPH RN Patient is dismissing to [facility] today. has assessed et he will not need the IV abx at this point.
[2019-06-25] MEDS ORDERED: FAMOTIDINE 20 MG (PEPCID) TABLET PO SCH (09:00)
[2019-06-25] MEDS ORDERED: 1/2 NS W/KCL 20 MEQ/L 1,000 ML IV SCH (09:00)
[2019-06-25] MEDS ORDERED: AMOX-355 PO (09:33)
[2019-06-25] MEDS ORDERED: LACT1CAP8 PO (09:33)
[2019-06-25] MEDS ORDERED: VALA500T4 PO (09:33)
[2019-06-25] MEDS ORDERED: RISP0.2517 PO (09:33)
[2019-06-25] MEDS ORDERED: NEOM28.34 TP (09:33)
[2019-06-25] MEDS: rOPINIRole 1 MG (REQUIP) TABLET PO SCH ×2 (09:34→13:01)
[2019-06-25] MEDS: VALACYCLOVIR 500 MG TAB (VALTREX) PO SCH ×2 (09:34→13:01)
[2019-06-25] MEDS: ASPIRIN 325 MG (5 GR) TABLET PO SCH (09:35)
[2019-06-25] MEDS: DOCUSATE SODIUM 100 MG (COLACE) CAP PO SCH (09:35)
[2019-06-25] MEDS: FLUDROCORTISONE 0.1 MG (FLORINEF) TAB PO SCH (09:35)
--- NOTE | 2019-06-25 09:35 | Discharge Inst-Skilled Nursing ---
Discharge Inst-Skilled NF Reconcile Patient Problems Problems Reviewed?: Yes Patient Instructions Patient Problems: parkinsons disease orthostatic hypotension falling episodes osteonecrosis of jaw prostate cancer metastatic to bone Consult/Follow Up/Orders Follow Up Appt.: will need flu shot - high dose from [facility] -please bring pt to office on saturday06/26/19 for the flu shot - thank you follow up appt in one week at [facility] Skilled NF Admit to: [facility] Certification (SNF) I certify that SNF services are required to be given on an inpatient basis because of the above named patient's need for long term care on a continuing basis for the conditions(s) for which he/she was receiving inpatient hospital services prior to his/her transfer to the SNF. [facility] Facility Order: Nursing Services, Concrete Inspector-Evaluate & Treat, Physical Therapy-Evaluate & Treat, Speech Language-Evaluate & Treat Oxygen Delivery Method: Room Air Discharge Diet: No Restrictions Daily Activity as Tolerated: Yes Resuscitation Status: Do Not Resuscitate New & Resume Previous Orders Maru Dubon Jun 25, 2019 09:34 MARU DUBON MD Jun 25, 2019 09:35
[2019-06-25] MEDS: LORATADINE (CLARITIN) 10 MG TAB PO SCH (09:36)
[2019-06-25] MEDS: SENNA W/DOCUSATE (SENOKOT S) TABLET PO SCH (09:36)
--- NOTE | 2019-06-25 09:36 | Discharge Summary ---
Diagnosis/Chief Complaint Date of Admission Jun 20, 2019 at 12:21 Date of Discharge Discharge Date: Jun 25, 2019 Discharge Time: 1100 Discharge Summary Discharge Physical Examination Allergies: Coded Allergies: amlodipine (Verified Allergy, Unknown, rash, itching , 06/16/19) Vitals & I&Os Vital Signs Date Time Temp Pulse Resp B/P (MAP) Pulse Ox O2 Delivery O2 Flow Rate FiO2 06/25/19 06:30 37.0 74 18 155/64 (94) 97 Room Air Hospital Course Pending Labs Laboratory Tests 06/25/19 06:20: White Blood Count 4.7, Red Blood Count 3.18, Hemoglobin 10.0, Hematocrit 31, Mean Corpuscular Volume 98, Mean Corpuscular Hemoglobin 31, Mean Corpuscular Hemoglobin Concent 32, Red Cell Distribution Width 15.5, Platelet Count 158, Mean Platelet Volume 9.0, Sodium Level 146, Potassium Level 2.9, Chloride Level 110, Carbon Dioxide Level 23, Anion Gap 13, Blood Urea Nitrogen 11, Creatinine 0.88, Estimat Glomerular Filtration Rate > 60, BUN/Creatinine Ratio 13, Glucose Level 96, Calcium Level 7.8, Corrected Calcium 8.1, Total Bilirubin 1.0, Aspart ate Amino Transf (AST/SGOT) 23, Alanine Aminotransferase (ALT/SGPT) < 6, Alkaline Phosphatase 84, Total Protein 6.6, Albumin 3.6 Discharge Instructions to patient/family Please see electronic discharge instructions given to patient. Discharge Medications Reviewed and agree with Discharge Medication list on patient's Discharge Instruction sheet Clinical Quality Measures DVT/VTE Risk/Contraindication: Risk Factor Score Per Nursin RFS Level Per Nursing on Admit: 2=Moderate MARU CARABALLO MD Jun 25, 2019 09:36
[2019-06-25] MEDS: HALOPERIDOL 5 MG/ML (HALDOL) AMP IM/IV SCH (09:37)
[2019-06-25] MEDS: FLUTICASONE NASAL SPRAY (FLONASE) 16 GM BTL NS SCH (09:38)
[2019-06-25] MEDS: POTASSIUM CL 10MEQ/50ML IVPB 50 ML IV SCH ×3 (10:16→13:11)
[2019-06-25] MEDS ORDERED: CHLO473M4 MM (12:36)
--- NOTE | 2019-06-25 13:00 | NUR ---
Report given to MARIN Ryan at 1300. Discussed discharge plan of care, instructions, follow ups, and medications.
--- NOTE | 2019-06-25 17:55 | NUR ---
Arrangements completed for pt discharge to [facility]. CARE assessment completed. Physician orders, Discharge instructions medication orders and medical and rehab reports were faxed to [facility] where he will be receiving short-term rehab skilled [id number]..
== END 2019-06-25 13:40 | DRG 57 ==
LOC: EDUNIT# 07:02 → ER FS 07:03 → 4TH 09:24 → OBSVTOIN 12:21
PROVIDERS: ADMIT Internal Medicine; ATTEND Internal Medicine
PROC: 0HQ1XZZ Repair Face Skin, External Approach (ICD-10-PCS; principal; 2019-06-20)
DX: G90.3 Multi-system degeneration of the autonomic nervous system (principal); R53.1 Weakness; M87.180 Osteonecrosis due to drugs, jaw; E86.0 Dehydration; C61 Malignant neoplasm of prostate; C79.51 Secondary malignant neoplasm of bone; B02.9 Zoster without complications; Z66 Do not resuscitate; R53.81 Other malaise; R41.0 Disorientation, unspecified; R29.6 Repeated falls; K05.10 Chronic gingivitis, plaque induced; S05.12XA Contusion of eyeball and orbital tissues, left eye, initial encounter; S01.01XA Laceration without foreign body of scalp, initial encounter; F03.90 Unspecified dementia, unspecified severity, without behavioral disturbance, psychotic disturbance, mood disturbance, and anxiety; I10 Essential (primary) hypertension; J30.2 Other seasonal allergic rhinitis; K21.9 Gastro-esophageal reflux disease without esophagitis; E78.00 Pure hypercholesterolemia, unspecified; I25.10 Atherosclerotic heart disease of native coronary artery without angina pectoris; M54.2 Cervicalgia; F32.9 Major depressive disorder, single episode, unspecified; K59.09 Other constipation; G25.81 Restless legs syndrome; K64.9 Unspecified hemorrhoids; Z95.5 Presence of coronary angioplasty implant and graft; Z92.21 Personal history of antineoplastic chemotherapy; W19.XXXA Unspecified fall, initial encounter; Y92.009 Unspecified place in unspecified non-institutional (private) residence as the place of occurrence of the external cause
CPT/HCPCS: 36415; 70355; 70450; 72125; 78306; 80048; 80053; 80076; 81000; 83735; 84153; 85025; 85027

== ENCOUNTER 2019-07-02 11:48 | Emergency (ER) | payer MEDICARE ==
[~2019-07-02] VITALS: Ht 170.1 cm; Wt 60.4 kg
--- NOTE | 2019-07-02 12:07 | ED General ---
General Stated Complaint: HEAD TRAUMA Source of Information: Patient, Shelter Records, Old Records Exam Limitations: No Limitations History of Present Illness Date Seen by Provider: Jul 02, 2019 Time Seen by Provider: 12:04 Initial Comments To ER from the outpatient CT department with reports of an acute subdural hematoma. Patient fell on 06/20/19 and was seen at [facility] emergency room. He had a normal head CT done, laceration to the left forehead which was closed. He was then transferred here today via [facility] for admission due to general debility weakness and falls. 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 He had an outpatient CT ordered today for recurrent fall at the assisted within the past 2-3 days and increasing confusion. He is on aspirin, no anticoagulation otherwise. Timing/Duration: 1-2 Days Severity: Moderate Allergies and Home Medications Allergies Coded Allergies: amlodipine (Verified Allergy, Unknown, rash, itching , 06/16/19) Home Medications Acetaminophen 650 Mg Tablet.er, 2 TAB PO QID, (Reported) Amoxicillin/Potassium Clav 1 Each Tablet, 1 EACH PO BID Prescribed by: MARU CARABALLO on 06/25/19 0933 Aspirin 325 Mg Tablet, 325 MG PO DAILY, (Reported) Calcium Carb & Citrate/Vit D3 1 Each Tablet.er, 1 EACH PO TID, (Reported) Calcium Carbonate 300 Mg Tab.chew, 300 MG PO 1200, (Reported) Carbidopa/Levodopa 1 Each Tablet, 2 TAB PO QID, (Reported) Chlorhexidine Gluconate 473 Ml Mouthwash, 5 ML MM AC Prescribed by: SRINI TOWNSEND on 06/25/19 1236 Cholecalciferol (Vitamin D3) 5,000 Unit Capsule, 5,000 UNIT PO DAILY, (Reported) Cyanocobalamin (Vitamin B-12) 1,000 Mcg Tablet.er, 1,000 MCG PO DAILY, (Reported) Famotidine 20 Mg Tablet, 20 MG PO BID, (Reported) Ferrous Sulfate 325 Mg Tablet, 325 MG PO UD, (Reported) saturday, saturday,saturday Fludrocortisone Acetate 0.1 Mg Tab, 0.1 MG PO BID, (Reported) Fluticasone Propionate 16 Gm [place].susp, 1 SPRAY NS BID, (Reported) Lactobacillus Acidophilus 1 Each Capsule, 1 EACH PO TID Prescribed by: MARU CARABALLO on 06/25/19932 Leuprolide Acetate 22.5 Mg/Syr Soln, 22.5 MG IM EVERY 3 MONTHS, (Reported) Levocetirizine Dihydrochloride 5 Mg Tablet, 5 MG PO HS, (Reported) Magnesium Hydroxide 400 Mg/5 Ml Oral.susp, 5 ML PO DAILY PRN for CONSTIPATION- 6TH LINE, (Reported) Neomycn/Baci Zn/Pmyx Bs/Pramox 28.3 Gm Oint...g., 0.25 GM TP BID apply small amount to lesion on forehead bid Prescribed by: MARU CARABALLO on 06/25/19932 Nitroglycerin 0.4 Mg Tab.subl, 0.4 MG SL PRN PRN for CHEST PAIN, (Reported) Risperidone 0.25 Mg Tablet, 0.25 MG PO BID Prescribed by: MARU CARABALLO on 06/25/19932 Ropinirole HCl 3 Mg Tablet, 3 MG PO TID, (Reported) Sertraline HCl 100 Mg Tablet, 150 MG PO HS, (Reported) Valacyclovir HCl 500 Mg Tablet, 1,000 MG PO TID Prescribed by: MARU CARABALLO on 06/25/19932 Patient Home Medication List Home Medication List Reviewed: Yes Review of Systems Review of Systems Constitutional: see HPI EENTM: see HPI Respiratory: no symptoms reported Cardiovascular: no symptoms reported Genitourinary: no symptoms reported Musculoskeletal: no symptoms reported Skin: no symptoms reported Psychiatric/Neurological: No Symptoms Reported Hematologic/Lymphatic: No Symptoms Reported Immunological/Allergic: no symptoms reported Past Cldxsar-Qhqxrs-Ovtqum Hx Patient Social History 2nd Hand Smoke Exposure: No Recent Hopitalizations: No Immunizations Up To Date Tetanus Booster (TDap): More than 5yrs PED Vaccines UTD: Yes Date of Pneumonia Vaccine: Sep 06, 2015 Seasonal Allergies Seasonal Allergies: Yes (takes claritin ) Past Medical History Surgeries: Yes Coronary Stent, Orthopedic, Rectal Respiratory: No Currently Using CPAP: No Currently Using BIPAP: No Cardiac: Yes (7 stents ) Coronary Artery Disease, High Cholesterol, Hypertension Neurological: Yes Dementia, Parkinson's Disease Sexually Transmitted Disease: No 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) Prostate Problems Gastrointestinal: Yes Gastroesophageal Reflux, Chronic Constipation, Hemorrhoids Musculoskeletal: Yes (RESTLESS LEG SYNDROME) Chronic Back Pain Endocrine: No HEENT: No Hearing Impairment: Hard of Hearing Cancer: Yes Prostate, Bone Did You Recieve Any Treatments: Yes What Type of Treatment Did You: Chemotherapy Psychosocial: No Integumentary: No Blood Disorders: No Family Medical History Cardiovascular disease Colon cancer Completed stroke Hypercholesterolemia Kidney disease Myocardial infarction No Pertinent Family Hx Physical Exam Vital Signs Capillary Refill : Height, Weight, BMI Height: 5'8.00" Weight: 147lbs. oz. [id number]; 20.25 BMI Method:Stated General Appearance: No Apparent Distress, WD/WN, Other (is alert sitting in his wheelchair, he does not know where he is at, he does know that the year is 2019. He converses with me) Eyes: Bilateral Eye Normal Inspection, Bilateral Eye PERRL, Bilateral Eye EOMI HEENT: PERRL/EOMI, TMs Normal, Other (sutures remain in place to the left side of the forehead, will remove these. There is some yellowish purple resolving ecchymoses infraorbitally from previous falls.) Neck: Full Range of Motion, Normal Inspection Respiratory: No Accessory Muscle Use, No Respiratory Distress Cardiovascular: Regular Rate, Rhythm, Normal Peripheral Pulses Gastrointestinal: Non Tender, Soft Neurologic/Psychiatric: Alert Skin: Normal Color, Warm/Dry (GCS is 14, 4 points for eyes open spontaneously, 4 points for confused verbal response, points for motor response), Other (crusted herpes zoster lesion to the left side of the thorax at the nipple line and he should have 4th/5th thoracic dermatome. ) Procedures/Interventions Suture Size: 5-0 Progress/Results/Core Measures Suspected Sepsis SIRS Temperature: Pulse: Respiratory Rate: Laboratory Tests 07/02/19 12:20: White Blood Count 7.3 Blood Pressure / Mean: Laboratory Tests 07/02/19 12:20: Creatinine 0.83, INR Comment 0.9, Platelet Count 236, Total Bilirubin 0.9 Results/Orders Lab Results Laboratory Tests Test 07/02/19 12:20 Range/Units White Blood Count 7.3 4.3-11.0 10^3/uL Red Blood Count 3.20 L 4.35-5.85 10^6/uL Hemoglobin 10.1 L 13.3-17.7 G/DL Hematocrit 32 L 40-54 % Mean Corpuscular Volume 100 H 80-99 FL Mean Corpuscular Hemoglobin 32 25-34 PG Mean Corpuscular Hemoglobin Concent 32 32-36 G/DL Red Cell Distribution Width 15.9 H 10.0-14.5 % Platelet Count 236 130-400 10^3/uL Mean Platelet Volume 8.8 7.4-10.4 FL Neutrophils (%) (Auto) 71 42-75 % Lymphocytes (%) (Auto) 16 12-44 % Monocytes (%) (Auto) 12 0-12 % Eosinophils (%) (Auto) 1 0-10 % Basophils (%) (Auto) 0 0-10 % Neutrophils # (Auto) 5.1 1.8-7.8 X 10^3 Lymphocytes # (Auto) 1.2 1.0-4.0 X 10^3 Monocytes # (Auto) 0.9 0.0-1.0 X 10^3 Eosinophils # (Auto) 0.1 0.0-0.3 10^3/uL Basophils # (Auto) 0.0 0.0-0.1 10^3/uL Prothrombin Time 12.7 12.2-14.7 SEC INR Comment 0.9 0.8-1.4 Sodium Level 142 135-145 MMOL/L Potassium Level 3.9 3.6-5.0 MMOL/L Chloride Level 104 98-107 MMOL/L Carbon Dioxide Level 25 21-32 MMOL/L Anion Gap 13 5-14 MMOL/L Blood Urea Nitrogen 12 7-18 MG/DL Creatinine 0.83 0.60-1.30 MG/DL Estimat Glomerular Filtration Rate > 60 BUN/Creatinine Ratio 14 Glucose Level 106 H 70-105 MG/DL Calcium Level 8.6 8.5-10.1 MG/DL Corrected Calcium 8.7 8.5-10.1 MG/DL Total Bilirubin 0.9 0.1-1.0 MG/DL Aspartate Amino Transf (AST/SGOT) 14 5-34 U/L Alanine Aminotransferase (ALT/SGPT) < 6 0-55 U/L Alkaline Phosphatase 85 40-136 U/L Total Protein 7.3 6.4-8.2 GM/DL Albumin 3.9 3.2-4.5 GM/DL My Orders Orders - JUAN IBARRA APRN Cbc With Automated Diff (07/02/19 11:56) Comprehensive Metabolic Panel (07/02/19 11:56) Protime With Inr (07/02/19 11:56) Ed Iv/Invasive Line Start (07/02/19 11:57) Vital Signs/I&O Capillary Refill : Diagnostic Imaging Diagonstic Imaging: CT Comments NAME: MARNIE BANERJEE [facility] REC#: [id number] PT STATUS: REG CLI : 1930 PHYSICIAN: SHANNAN MCKOY APRN ADMIT DATE: 07/02/19/RAD Draft POSDate of Exam:07/02/19 CT HEAD WO PROCEDURE: CT head without contrast. TECHNIQUE: Multiple contiguous axial images were obtained through the brain without the use of intravenous contrast. Auto Exposure Controls were utilized during the CT exam to meet ALARA standards for radiation dose reduction. INDICATION: Fall with dizziness and headache. Correlation is made with prior CT from 06/20/2019. FINDINGS: Since the prior CT, patient has developed a large acute subdural hematoma along the right cerebral convexity. The subdural measures to a thickness of 18 mm. There is a lower density component along the right frontal convexity measuring to a thickness of approximately 7 mm. This does exert mass effect on the right lateral ventricle with shift of the midline from right to left of approximately 5 mm. There is a small amount of acute blood layering within the occipital horn of the left lateral ventricle. No other areas of hemorrhage are detected. Cisterns are ambriz nt. Visualized paranasal sinuses are clear. IMPRESSION: Interval development of acute right cerebral convexity subdural hematoma when compared with the recent CT from 06/20/2019. This does exert mass effect with shift of the midline right to left of approximately 5 mm. There is a small amount of acute blood layering within the occipital horn of the left lateral ventricle as well. Results were discussed with Dr. Caraballo's office, Shannan Mckoy, nurse practitioner. Patient will be sent to the emergency Department. Juan Ibarra, nurse practitioner emergency department, was notified of the patient. Dictated on workstation # [id number] Dict: 07/02/19 1140 Trans: 07/02/19 1154 [facility] [id number] Interpreted by: NICOLA MATUTE MD Electronically signed by: Departure Communication (Admissions) Dr. Rivera neurosurgery at [place] who accepts the patient in consultation. She would like him admitted to internal medicine. Dr. Plaza from the ER, since this injury was on Saturday there is no point in the patient going to the emergency room there to repeat what we've done here. I then spoke with Dr. Leone from hospitalist service, we'll admit to ICU, awaiting bed assignment. [address] hot head machine operator has called back, patient will now go to the emergency room. [facility] notified of transport. Impression Primary Impression: Subdural bleeding Additional Impressions: Herpes zoster infection of thoracic region Prostate cancer metastatic to bone Disposition: XF SHT-TRM HOSP Condition: Stable Departure-Patient Inst. Referrals: MARU CARABALLO MD (PCP/Family) Primary Care Physician JUAN IBARRA APRN Jul 02, 2019 12:07 POS
[2019-07-02 12:31] LABS: BASOPHILS % (AUTO) 0 % (0-10); EOSINOPHILS # (AUTO) 0.1 10^3/uL (0.0-0.3); EOSINOPHILS % (AUTO) 1 % (0-10); HEMATOCRIT 32 % (40-54); HEMOGLOBIN 10.1 G/DL (13.3-17.7); LYMPHOCYTES # (AUTO) 1.2 X 10^3 (1.0-4.0); LYMPHOCYTES % (AUTO) 16 % (12-44); MEAN CORPUSCULAR HEMOGLOBIN 32 PG (25-34); MEAN CORPUSCULAR HGB CONC 32 G/DL (32-36); MEAN CORPUSCULAR VOLUME 100 FL (80-99); MEAN PLATELET VOLUME 8.8 FL (7.4-10.4); MONOCYTES # (AUTO) 0.9 X 10^3 (0.0-1.0); MONOCYTES % (AUTO) 12 % (0-12); NEUTROPHILS # (AUTO) 5.1 X 10^3 (1.8-7.8); NEUTROPHILS % (AUTO) 71 % (42-75); PLATELET COUNT 236 10^3/uL (130-400); RED CELL DISTRIBUTION WIDTH 15.9 % (10.0-14.5); WHITE BLOOD COUNT 7.3 10^3/uL (4.3-11.0)
[2019-07-02 12:40] LABS: INR 0.9 (0.8-1.4); PROTHROMBIN TIME PATIENT 12.7 SEC (12.2-14.7)
[2019-07-02 12:49] LABS: ALANINE AMINOTRANSFERASE < 6 U/L (0-55); ALBUMIN 3.9 GM/DL (3.2-4.5); ALKALINE PHOSPHATASE 85 U/L (40-136); BILIRUBIN,TOTAL 0.9 MG/DL (0.1-1.0); BUN/CREATININE RATIO 14; CALCIUM 8.6 MG/DL (8.5-10.1); CARBON DIOXIDE 25 MMOL/L (21-32); CHLORIDE 104 MMOL/L (98-107); CREATININE SERUM 0.83 MG/DL (0.60-1.30); GFR ESTIMATED > 60; GLUCOSE 106 MG/DL (70-105); POTASSIUM 3.9 MMOL/L (3.6-5.0); SODIUM 142 MMOL/L (135-145); TOTAL PROTEIN 7.3 GM/DL (6.4-8.2)
[2019-07-02 13:55] VITALS: BP 154/74
== END 2019-07-02 13:55 | disposition short-term general hospital (02) ==
LOC: EDUNIT# 11:48 → ER 11:49
DX: S06.5X0A Traumatic subdural hemorrhage without loss of consciousness, initial encounter (principal); B02.9 Zoster without complications; C61 Malignant neoplasm of prostate; C79.51 Secondary malignant neoplasm of bone; I25.10 Atherosclerotic heart disease of native coronary artery without angina pectoris; E78.00 Pure hypercholesterolemia, unspecified; I10 Essential (primary) hypertension; G20 Parkinson's disease; F02.80 Dementia in other diseases classified elsewhere, unspecified severity, without behavioral disturbance, psychotic disturbance, mood disturbance, and anxiety; K21.9 Gastro-esophageal reflux disease without esophagitis; Z88.8 Allergy status to other drugs, medicaments and biological substances; Z79.82 Long term (current) use of aspirin; Z79.51 Long term (current) use of inhaled steroids; Z95.5 Presence of coronary angioplasty implant and graft; Z82.49 Family history of ischemic heart disease and other diseases of the circulatory system; Z80.0 Family history of malignant neoplasm of digestive organs; W19.XXXA Unspecified fall, initial encounter
CPT/HCPCS: 36415; 80053; 85025; 85610

== ENCOUNTER → 2019-07-02 | Outpatient (CLI) | payer MEDICARE ==
[~2019-07-02] MED LIST: ACET-2650 PO; AMOX-355 PO; ASPI-808 PO; CALC-794 PO; CALC-870 PO; CARB1TAB19 PO; CARB1TAB43 PO; CHLO473M4 MM; CHOL200012 PO; CHOL5000 PO; CYAN100071 PO; FAMO20TA5 PO; FERR-84 PO; FLDR.1T PO; FLUT16SP22 NS; LACT1CAP8 PO; LEUP22.53 IM; LEVO5TAB28 PO; MAGN400O7 PO; NEOM28.34 TP; NITR0.4T42 SL; RISP0.2517 PO; ROPI3TAB4 PO; SERT100T8 PO; VALA500T4 PO
--- NOTE | 2019-07-02 11:55 | Diagnostic Imaging Report ---
PROCEDURE: CT head without contrast. TECHNIQUE: Multiple contiguous axial images were obtained through the brain without the use of intravenous contrast. Auto Exposure Controls were utilized during the CT exam to meet ALARA standards for radiation dose reduction. INDICATION: Fall with dizziness and headache. Correlation is made with prior CT from 06/20/2019. FINDINGS: Since the prior CT, patient has developed a large acute subdural hematoma along the right cerebral convexity. The subdural measures to a thickness of 18 mm. There is a lower density component along the right frontal convexity measuring to a thickness of approximately 7 mm. This does exert mass effect on the right lateral ventricle with shift of the midline from right to left of approximately 5 mm. There is a small amount of acute blood layering within the occipital horn of the left lateral ventricle. No other areas of hemorrhage are detected. Cisterns are patent. Visualized paranasal sinuses are clear. IMPRESSION: Interval development of acute right cerebral convexity subdural hematoma when compared with the recent CT from 06/20/2019. This does exert mass effect with shift of the midline right to left of approximately 5 mm. There is a small amount of acute blood layering within the occipital horn of the left lateral ventricle as well. Results were discussed with Dr. Dubon's office, Vi Mckoy, nurse practitioner. Patient will be sent to the emergency Department. Davie Ibarra, nurse practitioner emergency department, was notified of the patient. Dictated by: Dictated on workstation # [id number]
== END ==
LOC: RAD 10:44
PROVIDERS: ATTEND Nurse Practitioner Family
DX: S06.5X9A Traumatic subdural hemorrhage with loss of consciousness of unspecified duration, initial encounter (principal); W19.XXXA Unspecified fall, initial encounter
CPT/HCPCS: 70450